=== PATIENT | female | born 1980 | race Caucasian/White ===

== ENCOUNTER 2017-11-26 13:15 | Observation (INO) | payer OTHER, SELFPAY ==
[2017-11-26 13:49] LABS: #Eosinphils 0.1 thou/uL (0.0-0.7); #Monocytes 0.9 thou/uL (0.11-0.59); #Neutrophils 8.4 thou/uL (1.40-6.50); %Basophils 0.4 % (0.0-1.0); %Eosinophils 0.8 % (0.0-10.0); %Lymphocytes 17.3 % (21.0-51.0); %Neutrophils 73.5 % (42.0-75.0); Hemoglobin 14.3 g/dL (12.0-16.0); Mean Corpuscular HGB CONC 34.3 g/dL (32.0-36.0); Mean Corpuscular Hemoglobin 35.5 pg (27.0-31.0); Mean Platelet Volume 8.4 fL (7.4-10.4); Platelet Count 152 thou/uL (130-400); RBC Distribution Width 11.2 % (11.5-14.5); Red Blood Cell (RBC) Count 4.02 mill/uL (4.20-5.40); White Blood Cell (WBC) Count 11.3 thou/uL (4.8-10.8)
[2017-11-26] MEDS ORDERED: Ondansetron HCl/PF 4 MG/2 ML Vial ONE (13:55)
[2017-11-26] MEDS ORDERED: Morphine 2 MG/ML SYRINGE ONE (13:56)
[2017-11-26 13:59] LABS: Bilirubin Negative (Negative); Blood, Urine Negative (Negative); Clarity CLEAR (Clear); Glucose, Urine (Dipstick) Negative (Negative); Leukocyte Negative (Negative); Nitrite Positive (Negative); Protein, Urine (Dipstick) Negative (Neg-Trace); Specific Gravity, Urine 1.019 (1.002-1.036); pH, Urine 8.5 (5.0-9.0)
[2017-11-26 14:00] LABS: Pregnancy Test - Urine (BHCG) Negative (Negative); Pregu Control Background? CLEAR/WHITE (CLR/WHITE); Pregu Control Bar Appear? YES (CONTROL BAR); Specific Gravity 1.019 (1.002-1.036)
[2017-11-26 14:06] LABS: Bacteria/HPF 4+ HPF (None Seen); Hyaline Casts/LPF 0-3 HYALINE CAST LPF (0-3 Hyaline); RBC/HPF 0-3 HPF (0-3); Squamous Epithelial 0-3 HPF (0-3); WBC/HPF 0-3 HPF (0-3)
[2017-11-26 14:06] LABS: ALT (SGPT) 49 U/L (8-55); AST (SGOT) 57 U/L (5-34); Albumin 4.2 g/dL (3.5-5.0); Alkaline Phosphatase 38 U/L (40-150); Anion Gap 12 mmol/L (10-20); BUN (Urea Nitrogen) 8 mg/dL (7.0-18.7); Bilirubin, Total 0.9 mg/dL (0.2-1.2); Calc. Creatinine Clearance 0 mL/min (70-130); Carbon Dioxide 26 mmol/L (22-29); Chloride 101 mmol/L (98-107); Estimated GFR-MDRD Greater than 90; Globulin 2.8 g/dL (2.4-3.5); Glucose 112 mg/dL (70-105); Lipase 117 U/L (8-78); Potassium 4.4 mmol/L (3.5-5.1); Sodium 135 mmol/L (136-145)
--- NOTE | 2017-11-26 16:27 | CT ---
CT ABDOMEN WITH CONTRAST CT PELVIS WITH CONTRAST: DATE: 11-26-17 TIME: 2:19 p.m. HISTORY: 36-year-old female with epigastric abdomen pain, nausea and emesis. COMPARISON: 09-29-15 TECHNIQUE: IV injection of iodinated contrast media: 100 ml of Isovue 370 Oral contrast media: PO Isovue FINDINGS: Previously, there was extensive fluid and edema around the entire pancreas. Currently, there is perip ancreatic fluid around the uncinate process and adjacent to a portion of the pancreatic head, and kam rounding a segment of the superior mesenteric artery. The pancreatic duct is minimally dilated. The p ancreatic volume is smaller currently than it was previously. No fat stranding or edema around the wero dy and tail of the pancreas. No pancreatic calcifications. Diffusely low hepatic attenuation represen ts fatty liver. No portal vein thrombosis. Abdominal aorta, bilateral renal parenchyma, adrenals, and spleen are normal. No signs of acute cholecystitis. Normal appendix. Nonspecific new finding of mild dilation of bilateral extrarenal pelves, right greater than left, and of the right proximal and mid ureter. Partially decompressed urinary bladder contains a punctate focus of gas in its anterior nonde pendent portion to the left of midline (has the patient recently been catheterized?). No signs of acu te colonic diverticulitis. No small bowel dilation. Lung bases are clear. No pleural effusion. IMPRESSION: 1. Acute pancreatitis, isolated to the region around the pancreatic head and uncinate process, much l ess extensive than the episode in the previous CT of 09-29-15. 2. Hepatic steatosis. 3. Mild right hydroureter of uncertain etiology. 4. Interval mild atrophy of the pancreas. SAMUEL Watkins POS: CHELSEA
--- NOTE | 2017-11-26 18:35 | HP ---
HISTORY OF PRESENT ILLNESS: Mrs. Barr is a 36-year-old woman. She came to this facilit y earlier today with complaint of abdominal pain, nausea, and vomiting which started early this morni ng. She was evaluated in the ER, she was found to have acute pancreatitis. She denies any associate d fever. She denies diarrhea. PAST MEDICAL HISTORY: Remarkable for pancreatitis. She had 2 prior episodes of acute pancreatitis. She denies any other significant past medical history. She denies hypertension, diabetes, heart dis ease, lung disease, liver disease. PAST SURGICAL HISTORY: Remarkable for tubal ligation. ALLERGIES: She claims to have allergy to DEMEROL, STADOL, PHENERGAN, PENICILLIN, and also LATEX. SOCIAL HISTORY: She does have a history of ETOH abuse and also history of cigarette smoking. FAMILY HISTORY: Reviewed and is not contributory. MEDICATIONS: Prior to admission, she was not on any medication. REVIEW OF SYSTEMS: Constitutional: Denies any fever, denies any weakness. HEENT: No headache, no ocular pain, no sore throat, no rhinorrhea, no earache, no epistaxis. Neck: No neck pain, no neck s tiffness. Cardiovascular: No shortness of breath. No chest pain. Pulmonary: No coughing. Gastrointestinal: Admits to abdominal pain, nausea, and vomiting. She den ies diarrhea. Genitourinary: No dysuria, no hematuria. Endocrinology: No heat or cold intolerance . No polyuria, polydipsia or polyphagia. Musculoskeletal: She denies otalgia. Denies myalgia. He matology: No abnormal bleeding, no ecchymosis. Lymphatics: No palpable lymphadenopathy, no painful lymphadenopathy. Skin: No rash, no itching. Allergies: No hayfever. Neurological: No seizure. Psychiatric: Denies anxiety. Denies depressio n. PHYSICAL EXAMINATION: At the current time, GENERAL: She is alert, oriented, sick looking. VITAL SIGNS: Her latest vital signs show a temperature of 98.6, pulse rate 75, respiratory rate 16, blood pressure 139/85. HEENT: Her head is normocephalic and atraumatic. Both her pupils are equal, reactive. Ears and nos e normal. Oral mucosa is moist. Pharyngeal area is clear. NECK: Supple. There is no distention of the jugular veins. No lymphadenopathy felt. Thyroid gland not palpable. There is no carotid bruit. CHEST: Symmetrical with regular S1, S2. LUNGS: Clear. ABDOMEN: Shows some tenderness in the periumbilical area extending up to the epigastric area. Bowel sounds are decreased. EXTREMITIES: Her limbs showed no edema. NEUROLOGIC: She moves all extremities. LABORATORY DATA: CBC done today showed WBC of 11.3, hemoglobin of 14.3, hematocrit of 41.6, MCV of 1 04, platelets 152. Chemistry, electrolytes show sodium of 135, potassium 4.4, chloride 101, CO2 of 2 6, BUN 8, creatinine 0.66, glucose 112, calcium 10, total bilirubin 0.9, AST 67, ALT 49, alkaline tony sphatase 38, total protein 7, albumin 4.2, globulin 2.8, lipase 117. Urinalysis shows specific gravi ty of 1.019, pH of 8.5, nitrite positive, leukocyte esterase negative, 0-2 rbc's, 0-2 wbc's, 0-2 epit helial cells, +4 bacteria, 0-2 hyaline cast. Abdomen and pelvis CT was reviewed and showed evidence of acute pancreatitis and also hepatic steatosis. There is mild right hydroureter of uncertain etiol ogy, according to the report. ASSESSMENT AND PLAN: This is a 36-year-old woman with a history of ETOH abuse, previous ep isode of acute pancreatitis who is being admitted with acute pancreatitis. She is being admitted to medical floor. She will be hydrated vigorously. We will start her on morphine for pain. She will r eceive Zofran for nausea, vomiting, then she will be on PPI and also Lovenox for DVT prophylaxis. Moose an is being admitted for acute pancreatitis. Further evaluation and management will depend on the cou rse of the hospitalization and her response to therapy.
[2017-11-26] MEDS ORDERED: Ondansetron HCl/PF 4 MG/2 ML Vial IVP PRN (18:39)
[2017-11-26] MEDS ORDERED: Zolpidem Tartrate 5 MG TAB PO PRN (18:39)
[2017-11-26 18:40] VITALS: BMI 24.2
[2017-11-26] MEDS: Sodium Chloride 0.9% 1,000 ML IV SCH (19:52)
[2017-11-26] MEDS: Nicotine 21 MG PATCH TD SCH ×2 (19:53→20:16)
[2017-11-26] MEDS: Famotidine/PF 20 mg/2ml Vial SLOW IVP SCH (19:53)
[2017-11-27] MEDS: Sodium Chloride 0.9% 1,000 ML IV SCH ×3 (03:05→22:59)
[2017-11-27 05:44] LABS: ALT (SGPT) 32 U/L (8-55); AST (SGOT) 31 U/L (5-34); Albumin 3.3 g/dL (3.5-5.0); Alkaline Phosphatase 28 U/L (40-150); Anion Gap 10 mmol/L (10-20); BUN (Urea Nitrogen) 4 mg/dL (7.0-18.7); Bilirubin, Total 0.7 mg/dL (0.2-1.2); Calc. Creatinine Clearance 127 mL/min (70-130); Calcium 8.2 mg/dL (7.8-10.44); Carbon Dioxide 26 mmol/L (22-29); Chloride 103 mmol/L (98-107); Estimated GFR-MDRD Greater than 90; Glucose 81 mg/dL (70-105); Potassium 3.5 mmol/L (3.5-5.1); Protein, Total 5.3 g/dL (6.0-8.3); Sodium 135 mmol/L (136-145)
[2017-11-27] MEDS: Enoxaparin Sodium 40 MG/0.4 ML SYRINGE SC SCH (08:22)
[2017-11-27] MEDS: Famotidine/PF 20 mg/2ml Vial SLOW IVP SCH ×2 (08:22→20:24)
--- NOTE | 2017-11-27 15:14 | PDOC.PN ---
- Subjective Encounter Start Date: 11/27/17 Encounter Start Time: 15:00 Subjective: f/u for acute pancreatitis and ? UTI. Feels a little better overall and no -: emesis. c/o back pain in flank region, no hematuria or fever currently. - Objective Resuscitation Status: Resuscitation Status FULL:Full Resuscitation MAR Reviewed: Yes Vital Signs & Weight: Vital Signs (12 hours) Temp Pulse Resp BP Pulse Ox 11/27/17 11:08 97.9 F 78 20 144/90 H 98 11/27/17 07:53 97.7 F 68 12 11/27/17 07:24 98.0 F 70 20 126/74 95 Weight Weight 132 lb 4.8 oz I&O: 11/26/17 11/27/17 11/28/17 06:59 06:59 06:59 Intake Total 1006 Balance 1006 Result Diagrams: 11/26/17 13:33 11/27/17 04:08 Additional Labs: Microbiology 11/26/17 13:48 Urine clean catch Urine Culture - Preliminary Gram Negative Riky Laboratory Tests 11/26/17 11/26/17 13:33 13:48 Lipase 117 H Urine Test Negative Radiology Reviewed by me: Yes (CT abd/pel - mild stranding around head of pancreas) Phys Exam - Physical Examination Constitutional: NAD HEENT: PERRLA, oral pharynx no lesions Neck: no JVD, supple Respiratory: no wheezing, clear to auscultation bilateral Cardiovascular: RRR + TTP in mid-epigastric region mild CVA tenderness R>L Gastrointestinal: soft, no distention, positive bowel sounds Musculoskeletal: no edema, pulses present Neurological: normal sensation, moves all 4 limbs Psychiatric: A&O x 3 Skin: normal turgor, cap refill <2 seconds Dx/Plan (1) Acute pancreatitis Code(s): K85.9 - ACUTE PANCREATITIS, UNSPECIFIED * DO NOT USE * Status: Acute Qualifiers: Pancreatitis type: alcohol induced Comment: Improved, repeat lipase in am, start clear liquids (2) UTI (urinary tract infection) Status: Acute Qualifiers: Urinary tract infection type: acute cystitis Comment: Await final Ucx results, start Rocephin 2gm IV daily (3) Nausea & vomiting Code(s): R11.2 - NAUSEA WITH VOMITING, UNSPECIFIED Status: Acute Comment: resolved, continue IVF's, supportive, Zofran prn (4) Hepatic steatosis Code(s): K76.0 - FATTY (CHANGE OF) LIVER, NOT ELSEWHERE CLASSIFIED Status: Chronic Comment: Follow clinically - Plan continue antibiotics, manager social work, out of bed/ambulate, DVT proph w/SCDs Stable overall -: Start Rocephin 2gm IV daily -: Continue IVF's -: Start clear liquids -: AM lab: CMP, Lipase * Likely home in am
[2017-11-27] MEDS ORDERED: cefTRIAXone\\ROCEPHIN 2 GM in Sodium Chloride 0.9% 100 ML IVPB SCH (16:00)
[2017-11-27] MEDS: Nicotine 21 MG PATCH TD SCH (20:32)
[2017-11-28] MEDS ORDERED: HYDROcodone/Acetaminophen 5/325 mg Tablet PO SCH (04:30)
[2017-11-28 05:29] LABS: ALT (SGPT) 27 U/L (8-55); AST (SGOT) 23 U/L (5-34); Albumin 3.3 g/dL (3.5-5.0); Alkaline Phosphatase 33 U/L (40-150); Anion Gap 12 mmol/L (10-20); BUN (Urea Nitrogen) 5 mg/dL (7.0-18.7); Bilirubin, Total 0.3 mg/dL (0.2-1.2); Calc. Creatinine Clearance 134 mL/min (70-130); Calcium 8.7 mg/dL (7.8-10.44); Carbon Dioxide 22 mmol/L (22-29); Chloride 103 mmol/L (98-107); Estimated GFR-MDRD Greater than 90; Globulin 2.5 g/dL (2.4-3.5); Glucose 89 mg/dL (70-105); Lipase 193 U/L (8-78); Potassium 3.8 mmol/L (3.5-5.1); Protein, Total 5.8 g/dL (6.0-8.3); Sodium 133 mmol/L (136-145)
[2017-11-28] MEDS: Enoxaparin Sodium 40 MG/0.4 ML SYRINGE SC SCH (08:31)
[2017-11-28] MEDS: Famotidine/PF 20 mg/2ml Vial SLOW IVP SCH (08:31)
[2017-11-28] MEDS: Sodium Chloride 0.9% 1,000 ML IV SCH (08:31)
--- NOTE | 2017-11-28 10:12 | DIS ---
DATE OF ADMISSION: 11/26/2017 DATE OF DISCHARGE: 11/28/2017 DISCHARGE DIAGNOSES: 1. Acute pancreatitis, likely alcohol induced. 2. Abdominal pain secondary to #1, improved. 3. Nausea and vomiting secondary to #1, resolved. 4. Urinary tract infection with Escherichia coli. 5. Hepatic steatosis. CONSULTATIONS: None. PERTINENT LABORATORY DATA AND X-RAY FINDINGS: Sodium ranged between 133-135. AST ranged between 23- 57, ALT ranged between 27-49, alkaline phosphatase ranged between 28-38. Albumin ranged between 3.3- 4.2. Lipase ranged between 117-193. CBC showed a white blood cell count of 11.3, hemoglobin 14, hem atocrit 42, MCV 104, platelet count 152. Urine beta hCG negative, 11/26/2017. Urine culture dated 0 11/26/2017 showed greater than 100,000 colonies of E. coli, pansensitive. CT of the abdomen and pelvi s dated 11/26/2017 showed findings consistent with acute pancreatitis at the pancreatic head and unci katy process, hepatic steatosis as well as mild right hydroureter. HOSPITAL COURSE: The patient was placed in observation status after initially presenting with increa sed abdominal pain with associated nausea, vomiting, and elevated lipase concerning for acute pancrea titis. CT imaging of the abdomen and pelvis did reveal inflammatory process at the pancreatic head a nd uncinate process, much less in presentation than previous imaging compared from 2016. The patient was placed on n.p.o. status and given IV fluid hydration as well as morphine sulfate and antiemetics . The patient has slowly clinically improved with supportive measures, advancing to clear liquids an d tolerating without return of emesis. Serial lipase assessment showed values ranging between 117-19 3 with recommendation for bland liquid diet after discharge. The patient was also recommended for GI followup and likely would benefit from ERCP evaluation after a current episode of acute pancreatitis has resolved. Overall, patient did remain clinically stable during the hospital course and ready fo r discharge on 11/28/2017. DISCHARGE MEDICATIONS: 1. Levaquin 500 mg 1 tab p.o. daily x7 days. 2. Tramadol 50 mg 1 tablet p.o. q.i.d. p.r.n. pain, #30. FOLLOWUP: The patient may follow up with Dr. Dillon Reis, primary care provider, within 7 days of discharge. The patient was also given referral for GI followup with Dr. Hercules and to call his offi ce for appointment time and date. CONDITION ON DISCHARGE: Stable. ACTIVITY: Ad kamini. DIET: Crosby and liquid. CODE STATUS: FULL. DISPOSITION: Home, 11/28/2017.
[2017-11-28 15:58] VITALS: BP 128/76; TEMP 98.7
== END 2017-11-28 16:28 | disposition home or self-care (01) ==
LOC: ERS 13:15 → 2SW 17:00
PROVIDERS: ADMIT Hospitalist; ATTEND Hospitalist
DX: K85.90 Acute pancreatitis without necrosis or infection, unspecified (principal); N39.0 Urinary tract infection, site not specified; B96.20 Unspecified Escherichia coli [E. coli] as the cause of diseases classified elsewhere; K76.0 Fatty (change of) liver, not elsewhere classified; F10.10 Alcohol abuse, uncomplicated; F17.210 Nicotine dependence, cigarettes, uncomplicated; Z79.899 Other long term (current) drug therapy; Z88.5 Allergy status to narcotic agent; Z88.0 Allergy status to penicillin; Z88.8 Allergy status to other drugs, medicaments and biological substances; Z91.040 Latex allergy status
CPT/HCPCS: 36415; 74177; 80053; 81003; 81015; 81025; 83690; 85025; 87077; 87086; 87186; 96361; 96365; 96372; 96374; 96375; 96376; 99406; G0378; J0696; J1650; J2270; J2405; J7050; S0028

== ENCOUNTER 2018-06-05 10:59 | Inpatient (IN) | payer OTHER, SELFPAY ==
[2018-06-05 12:10] LABS: Bilirubin Negative (Negative); Blood, Urine Negative (Negative); Clarity CLEAR (Clear); Glucose, Urine (Dipstick) Negative (Negative); Leukocyte Negative (Negative); Nitrite Negative (Negative); Protein, Urine (Dipstick) Negative (Neg-Trace); Specific Gravity, Urine 1.005 (1.002-1.036); Urobilinogen 0.2 mg/dL (0.2-1.0)
[2018-06-05 12:11] LABS: Pregnancy Test - Urine (BHCG) Negative (Negative); Pregu Control Background? CLEAR/WHITE (CLR/WHITE); Pregu Control Bar Appear? YES (CONTROL BAR); Specific Gravity 1.005 (1.002-1.036)
[2018-06-05 12:25] LABS: ALT (SGPT) 40 U/L (8-55); AST (SGOT) 45 U/L (5-34); Albumin 4.3 g/dL (3.5-5.0); Alkaline Phosphatase 42 U/L (40-150); Anion Gap 18 mmol/L (10-20); BUN (Urea Nitrogen) 5 mg/dL (7.0-18.7); Calc. Creatinine Clearance 0 mL/min (70-130); Calcium 9.8 mg/dL (7.8-10.44); Carbon Dioxide 21 mmol/L (22-29); Chloride 98 mmol/L (98-107); Estimated GFR-MDRD Greater than 90; Globulin 3.2 g/dL (2.4-3.5); Glucose 88 mg/dL (70-105); Lipase 324 U/L (8-78); Potassium 3.9 mmol/L (3.5-5.1); Protein, Total 7.5 g/dL (6.0-8.3); Sodium 133 mmol/L (136-145)
[2018-06-05 12:39] LABS: #Basophils 0.1 thou/uL (0.0-0.2); #Eosinphils 0.1 thou/uL (0.0-0.7); #Lymphocytes 1.6 thou/uL (1.20-3.40); #Monocytes 0.7 thou/uL (0.11-0.59); #Neutrophils 6.3 thou/uL (1.40-6.50); %Eosinophils 0.9 % (0.0-10.0); %Lymphocytes 17.7 % (21.0-51.0); %Monocytes 8.3 % (0.0-10.0); Eosinophils 1 % (0-10); Hemoglobin 14.6 g/dL (12.0-16.0); Lymphocytes 17 % (21-51); MDiff Complete? YES; Macrocytosis SLIGHT = 6-15 cells (100X) (0-5/hpf); Mean Corpuscular HGB CONC 34.2 g/dL (32.0-36.0); Mean Corpuscular Hemoglobin 36.8 pg (27.0-31.0); Mean Platelet Volume 9.2 fL (7.4-10.4); Monocytes 9 % (0-10); Neutrophil 73 % (42-75); Platelet Count 132 thou/uL (130-400); Red Blood Cell (RBC) Count 3.97 mill/uL (4.20-5.40); White Blood Cell (WBC) Count 8.7 thou/uL (4.8-10.8)
[2018-06-05] MEDS ORDERED: Ondansetron ODT 4 MG TAB ONE (14:46)
[2018-06-05] MEDS ORDERED: Morphine 4 MG/ML VIAL ONE ×2 (14:46→19:17)
[2018-06-05] MEDS ORDERED: HYDROcodone/Acetaminophen 10/325 mg Tablet ONE ×2 (15:52→17:42)
[2018-06-05] MEDS ORDERED: SODIUM CHLORIDE 0.9% IVPB PRN (21:22)
[2018-06-05] MEDS ORDERED: ONDANSETRON HCL IVPB PRN (21:22)
[2018-06-05] MEDS ORDERED: Ondansetron HCl/PF 4 MG/2 ML Vial IVP PRN (21:38)
[2018-06-05] MEDS ORDERED: Morphine 4 MG/ML VIAL SLOW IVP PRN (21:53)
[2018-06-05] MEDS: Lactated Ringer's 1,000 ML IV SCH (22:19)
[2018-06-05 22:47] VITALS: BMI 24.0
[2018-06-06 05:14] LABS: #Basophils 0.1 thou/uL (0.0-0.2); #Eosinphils 0.1 thou/uL (0.0-0.7); #Lymphocytes 1.9 thou/uL (1.20-3.40); #Monocytes 0.7 thou/uL (0.11-0.59); %Basophils 0.9 % (0.0-1.0); %Eosinophils 1.3 % (0.0-10.0); %Lymphocytes 24.8 % (21.0-51.0); %Monocytes 9.4 % (0.0-10.0); %Neutrophils 63.7 % (42.0-75.0); Hemoglobin 12.4 g/dL (12.0-16.0); Mean Corpuscular HGB CONC 33.9 g/dL (32.0-36.0); Mean Corpuscular Hemoglobin 36.8 pg (27.0-31.0); Mean Platelet Volume 9.1 fL (7.4-10.4); Platelet Count 111 thou/uL (130-400); RBC Distribution Width 13.1 % (11.5-14.5); Red Blood Cell (RBC) Count 3.39 mill/uL (4.20-5.40); White Blood Cell (WBC) Count 7.8 thou/uL (4.8-10.8)
[2018-06-06 05:15] LABS: Anion Gap 12 mmol/L (10-20); BUN (Urea Nitrogen) 4 mg/dL (7.0-18.7); Calc. Creatinine Clearance 113 mL/min (70-130); Calcium 8.7 mg/dL (7.8-10.44); Carbon Dioxide 24 mmol/L (22-29); Chloride 104 mmol/L (98-107); Estimated GFR-MDRD Greater than 90; Glucose 74 mg/dL (70-105); Potassium 3.8 mmol/L (3.5-5.1); Sodium 136 mmol/L (136-145)
[2018-06-06] MEDS: Lactated Ringer's 1,000 ML IV SCH ×3 (05:21→19:46)
--- NOTE | 2018-06-06 07:32 | HP ---
PRIMARY CARE PHYSICIAN: The patient follows with a doctor at [facility] CODE STATUS: FULL CODE. TIME OF EVALUATION: 8:40 p.m. CHIEF COMPLAINT: Abdominal pain. HISTORY OF PRESENT ILLNESS: This is a 37-year-old female patient who has a history of alcohol abuse. 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 She came to the hospital after having severe abdominal pain was 10/10. No clear triggers or alleviating factors, mostly in the epigastric area radiating to the back, associated with nausea. REVIEW OF SYSTEMS: CONSTITUTIONAL: No fever, no chills. Generalized weakness. RESPIRATORY: No cough, sputum production or shortness of breath. CARDIOVASCULAR: No chest pain or palpitations. GASTROINTESTINAL: The patient has abdominal pain, nausea, no diarrhea. No vomiting. REWINDER: No dizziness, headache or feeling lightheaded. GENITOURINARY: No burning with urination. EXTREMITIES: No leg swelling. Other systems reviewed were negative except for the findings mentioned above. PAST MEDICAL HISTORY: Positive for chronic pancreatitis, borderline diabetes in the past. PAST SURGICAL HISTORY: Tubal ligation. PSYCHIATRIC HISTORY: No previous psychiatric history. FAMILY HISTORY: Mother alcohol use SOCIAL HISTORY: The patient drinks on an almost daily basis due to her job, patient smokes a half a pack per day. The patient lives with family with her spouse. ALLERGIES: DEMEROL, LATEX, PENICILLIN, PHENERGAN, STADOL, TORADOL. REPORTED MEDICATIONS: None. PHYSICAL EXAMINATION: VITAL SIGNS: On presentation, blood pressure 169/91 with heart rate 88, respiratory rate was 18, temperature 98. Pain was 10/10, oxygen saturation was 100 on room air. GENERAL APPEARANCE: The patient is alert, oriented, not in acute distress. HEENT: Eyes; normal conjunctivae. Moist oral mucosa. Anicteric. NECK: No JVD. RESPIRATORY: Bilateral air entry. No rales, no wheezing. Symmetric expansion. CARDIOVASCULAR: Normal rate, regular rhythm. No murmurs, no gallop. No edema. The patient is hypertensive. ABDOMEN: Soft, normal bowel sounds. MUSCULOSKELETAL: Baseline range of motion and strength. No tenderness. SKIN: Warm and intact. No pallor or rash. No redness. Peripheral pulses are present. Capillary refill seems to be intact. NEUROLOGIC: Baseline sensory. No evidence of a new focal weakness. Baseline speech. Cranial nerves are intact. PSYCHIATRIC: The patient is in a good mood. No anxiety, oriented, optimal judgment. LABORATORY DATA: Labs were reviewed. The patient has white count 8.7, hemoglobin 14.6, MCV 108, platelet count 132. Sodium 133, potassium 3.9, chloride 98, carbon dioxide 21, anion gap 18, BUN 5, creatinine 0.6, AST 45. LFTs are negative. Lipase 224. ASSESSMENT AND PLAN: The patient will be placed in the hospital for the following medical problems: 1. Acute on chronic pancreatitis, with elevated lipase of 324, more than 3 times the upper limit, likely triggered by alcohol abuse, advised the patient to stop drinking, continue to give hydration, opiate medications are needed for pain control. This also places the patient at high risk of complication from treatment. 2. Hyponatremia. Sodium is 133, corrected. Repeat 130 this morning, this is mild, no need for any further intervention. 3. Mild metabolic acidosis with a CO2 of 21. This was corrected to 24 on repeat labs in the morning. 4. Deep venous thrombosis prophylaxis. MTDD
[2018-06-06] MEDS ORDERED: Enoxaparin Sodium 40 MG/0.4 ML SYRINGE SC SCH (09:00)
[2018-06-06] MEDS ORDERED: Famotidine/PF 20 mg/2ml Vial SLOW IVP SCH ×2 (09:37→09:45)
[2018-06-06] MEDS: Famotidine/PF 20 mg/2ml Vial SLOW IVP SCH (20:30)
[2018-06-07] MEDS: HYDROcodone/Acetaminophen 5/325 mg Tablet PO PRN ×4 (02:36→21:11)
[2018-06-07] MEDS: Lactated Ringer's 1,000 ML IV SCH ×3 (03:13→17:55)
[2018-06-07] MEDS: Famotidine/PF 20 mg/2ml Vial SLOW IVP SCH ×2 (08:39→20:03)
--- NOTE | 2018-06-07 10:48 | ULT ---
GALLBLADDER ULTRASOUND: HISTORY: Abdominal pain. COMPARISON: 09/03/2015 TECHNIQUE: Utilizing a Multi-Hertz transducer, sonographic imaging of the right upper quadrant was performed in the longitudinal and transverse planes. FINDINGS: The pancreas is obscured by bowel gas. The hepatic parenchyma has an increased echogenicity, due to hepatic steatosis or hepatocellular dise ase. Subsequent evaluation for hepatic masses and intrahepatic biliary dilatation is limited. The r ight hepatic lobe measures 13.7 cm. Note is made of a prominent right extrarenal pelvis. No evidence of calyceal dilatation. The right kidney measures 11.2 cm in maximum dimension. No sonographic evidence of cholelithiasis, gallbladder wall thickening, or pericholecystic fluid. Ne gative Carrera sign. Common bile duct diameter is 0.4 cm. IMPRESSION: No sonographic evidence of cholelithiasis or cholecystitis. POS: CHELSEA
--- NOTE | 2018-06-07 13:28 | PDOC.PN ---
- Subjective Encounter Start Date: 06/07/18 Encounter Start Time: 11:30 Subjective: pt up in bed still has pain to her abdomen area -: she tried to eat last night and started to have pain - Objective Resuscitation Status: Resuscitation Status FULL:Full Resuscitation Vital Signs & Weight: Vital Signs (12 hours) Temp Pulse Resp BP BP Pulse Ox 06/07/18 11:32 98.1 F 77 16 145/85 H 100 06/07/18 07:52 97.4 F L 80 16 143/93 H 99 06/07/18 02:37 97.5 F L 86 16 166/88 H 100 Weight Weight 128 lb 11.2 oz I&O: 06/06/18 06/07/18 06/08/18 06:59 06:59 06:59 Intake Total 1031 4317 Balance 1031 4317 Result Diagrams: 06/06/18 04:31 06/06/18 04:31 Phys Exam - Physical Examination Neck: no nodes, no JVD, supple, full ROM Respiratory: no wheezing, no rales, no rhonchi, wheezing present, clear to auscultation bilateral Cardiovascular: RRR, no significant murmur, no rub, gallop, irregular Gastrointestinal: soft, positive bowel sounds mild tenderness around epigastric area Neurological: non-focal, normal sensation, moves all 4 limbs Psychiatric: normal affect, A&O x 3 Dx/Plan (1) Acute pancreatitis Code(s): K85.9 - ACUTE PANCREATITIS, UNSPECIFIED * DO NOT USE * Status: Acute Comment: Improved, repeat lipase in am, start clear liquids (2) Nausea & vomiting Code(s): R11.2 - NAUSEA WITH VOMITING, UNSPECIFIED Status: Acute Comment: resolved, continue IVF's, supportive, Zofran prn (3) Alcohol abuse Code(s): F10.10 - ALCOHOL ABUSE, UNCOMPLICATED Status: Chronic (4) Nausea & vomiting Code(s): R11.2 - NAUSEA WITH VOMITING, UNSPECIFIED Status: Acute - Plan pt still has pain to her abdomen -: will continue pepcid bid -: may progress diet if tolerates * . Review of Systems - Review of Systems Respiratory: negative: Cough, Dry, Shortness of Breath, Hemoptysis, SOB with Excertion, Pleuritic Pain, Sputum, Wheezing Cardiovascular: negative: chest pain, palpitations, orthopnea, paroxysmal nocturnal dyspnea, edema, light headedness, other Gastrointestinal: Abdominal Pain Genitourinary: negative: Dysuria, Frequency, Incontinence, Hematuria, Retention , Other Musculoskeletal: negative: Neck Pain, Shoulder Pain, Arm Pain, Back Pain, Hand Pain, Leg Pain, Foot Pain, Other - Medications/Allergies Allergies/Adverse Reactions: Allergies Allergy/AdvReac Type Severity Reaction Status Date / Time butorphanol tartrate Allergy Rash Verified 06/05/18 22:38 [From Stadol] ketorolac tromethamine Allergy Rash Verified 06/05/18 22:38 [From Toradol] latex Allergy Rash Verified 06/05/18 22:38 meperidine HCl [From Demerol] Allergy Rash Verified 06/05/18 22:38 Penicillins Allergy Rash Verified 06/05/18 22:38 promethazine HCl Allergy Rash Verified 06/05/18 22:38 [From Phenergan] Medications: Current Medications Hydrocodone Bitart/Acetaminophen (Rossiter 5/325) 1 tab PO Q6H PRN PRN Reason: Mild-Moderate Pain (1-5) Last Admin: 06/07/18 08:37 Dose: 1 tab Famotidine (Pepcid) 20 mg SLOW IVP BID [facility] Last Admin: 06/07/18 08:39 Dose: 20 mg Lactated Ringer's (Lactated Ringer's) 1,000 mls @ 150 mls/hr IV .Q6H40M [facility] Last Admin: 06/07/18 08:37 Dose: 1,000 mls Morphine Sulfate (Morphine) 2 mg SLOW IVP Q2H PRN PRN Reason: Moderate to Severe Pain (6-10) Last Admin: 06/07/18 11:11 Dose: 2 mg Ondansetron HCl (Zofran) 2 mg IVP Q4H PRN PRN Reason: SEVERE PAIN (7-10) Last Admin: 06/06/18 20:27 Dose: 2 mg Sodium Chloride (Flush - Normal Saline) 10 ml IVF Q12HR [facility] Last Admin: 06/07/18 08:40 Dose: Not Given Sodium Chloride (Flush - Normal Saline) 10 ml IVF PRN PRN PRN Reason: Saline Flush
[2018-06-08] MEDS: Lactated Ringer's 1,000 ML IV SCH ×4 (00:21→16:59)
[2018-06-08] MEDS: HYDROcodone/Acetaminophen 5/325 mg Tablet PO PRN ×3 (03:11→18:11)
[2018-06-08 04:32] LABS: ALT (SGPT) 24 U/L (8-55); AST (SGOT) 18 U/L (5-34); Albumin 3.4 g/dL (3.5-5.0); Alkaline Phosphatase 35 U/L (40-150); Anion Gap 14 mmol/L (10-20); BUN (Urea Nitrogen) Less than 4 mg/dL (7.0-18.7); Bilirubin, Total 0.6 mg/dL (0.2-1.2); Calc. Creatinine Clearance 131 mL/min (70-130); Calcium 9.4 mg/dL (7.8-10.44); Carbon Dioxide 21 mmol/L (22-29); Chloride 101 mmol/L (98-107); Estimated GFR-MDRD Greater than 90; Globulin 2.6 g/dL (2.4-3.5); Glucose 104 mg/dL (70-105); Potassium 3.7 mmol/L (3.5-5.1); Sodium 132 mmol/L (136-145)
[2018-06-08 04:48] LABS: #Eosinphils 0.1 thou/uL (0.0-0.7); #Lymphocytes 1.5 thou/uL (1.20-3.40); #Neutrophils 5.7 thou/uL (1.40-6.50); %Basophils 0.6 % (0.0-1.0); %Eosinophils 1.1 % (0.0-10.0); %Lymphocytes 18.5 % (21.0-51.0); %Monocytes 11.4 % (0.0-10.0); %Neutrophils 68.3 % (42.0-75.0); Hemoglobin 12.2 g/dL (12.0-16.0); Mean Corpuscular HGB CONC 34.6 g/dL (32.0-36.0); Mean Corpuscular Hemoglobin 36.9 pg (27.0-31.0); Mean Platelet Volume 9.1 fL (7.4-10.4); Platelet Count 116 thou/uL (130-400); RBC Distribution Width 12.7 % (11.5-14.5); White Blood Cell (WBC) Count 8.3 thou/uL (4.8-10.8)
[2018-06-08] MEDS: Famotidine/PF 20 mg/2ml Vial SLOW IVP SCH (08:15)
--- NOTE | 2018-06-08 13:50 | PDOC.PN ---
- Subjective Encounter Start Date: 06/08/18 Encounter Start Time: 10:30 Subjective: pt up in bed still having abdominal pain - Objective Resuscitation Status: Resuscitation Status FULL:Full Resuscitation Vital Signs & Weight: Vital Signs (12 hours) Temp Pulse Resp BP Pulse Ox 06/08/18 08:00 99 06/08/18 07:26 97.7 F 72 18 158/89 H 99 06/08/18 04:00 98.0 F 74 20 144/94 H 96 Weight Weight 128 lb 11.2 oz I&O: 06/07/18 06/08/18 06/09/18 06:59 06:59 06:59 Intake Total 4317 2562 Balance 4317 2562 Result Diagrams: 06/08/18 03:36 06/08/18 03:36 Phys Exam - Physical Examination Neck: no nodes, no JVD, supple, full ROM Respiratory: no wheezing, no rales, no rhonchi, wheezing present, clear to auscultation bilateral Cardiovascular: RRR, no significant murmur, no rub, gallop, irregular Gastrointestinal: soft, positive bowel sounds mild epigastric pain Musculoskeletal: no edema, pulses present, edema present Dx/Plan (1) Acute pancreatitis Code(s): K85.9 - ACUTE PANCREATITIS, UNSPECIFIED * DO NOT USE * Status: Acute Comment: Improved, repeat lipase in am, start clear liquids (2) Nausea & vomiting Code(s): R11.2 - NAUSEA WITH VOMITING, UNSPECIFIED Status: Acute Comment: resolved, continue IVF's, supportive, Zofran prn (3) Alcohol abuse Code(s): F10.10 - ALCOHOL ABUSE, UNCOMPLICATED Status: Chronic (4) Nausea & vomiting Code(s): R11.2 - NAUSEA WITH VOMITING, UNSPECIFIED Status: Acute - Plan pt still has abdominal pain. she started to have pain when she had jello -: she wanted me to increase the frequency of her pain meds -: her inflammatory markers are negative. will get GI to see her. * . Review of Systems - Review of Systems ENT: negative: Ear Pain, Ear Discharge, Nose Pain, Nose Discharge, Nose Congestion, Mouth Pain, Mouth Swelling, Throat Pain, Throat Swelling, Other Respiratory: negative: Cough, Dry, Shortness of Breath, Hemoptysis, SOB with Excertion, Pleuritic Pain, Sputum, Wheezing Gastrointestinal: Abdominal Pain Genitourinary: negative: Dysuria, Frequency, Incontinence, Hematuria, Retention , Other Musculoskeletal: negative: Neck Pain, Shoulder Pain, Arm Pain, Back Pain, Hand Pain, Leg Pain, Foot Pain, Other - Medications/Allergies Allergies/Adverse Reactions: Allergies Allergy/AdvReac Type Severity Reaction Status Date / Time butorphanol tartrate Allergy Rash Verified 06/05/18 22:38 [From Stadol] ketorolac tromethamine Allergy Rash Verified 06/05/18 22:38 [From Toradol] latex Allergy Rash Verified 06/05/18 22:38 meperidine HCl [From Demerol] Allergy Rash Verified 06/05/18 22:38 Penicillins Allergy Rash Verified 06/05/18 22:38 promethazine HCl Allergy Rash Verified 06/05/18 22:38 [From Phenergan] Medications: Current Medications Hydrocodone Bitart/Acetaminophen (Chandler 5/325) 1 tab PO Q6H PRN PRN Reason: Mild-Moderate Pain (1-5) Last Admin: 06/08/18 09:26 Dose: 1 tab Famotidine (Pepcid) 20 mg SLOW IVP BID [facility] Last Admin: 06/08/18 08:15 Dose: 20 mg Lactated Ringer's (Lactated Ringer's) 1,000 mls @ 150 mls/hr IV .Q6H40M [facility] Last Admin: 06/08/18 08:17 Dose: 1,000 mls Morphine Sulfate (Morphine) 2 mg SLOW IVP Q2H PRN PRN Reason: Moderate to Severe Pain (6-10) Last Admin: 06/08/18 13:07 Dose: 2 mg Ondansetron HCl (Zofran) 2 mg IVP Q4H PRN PRN Reason: SEVERE PAIN (7-10) Last Admin: 06/06/18 20:27 Dose: 2 mg Sodium Chloride (Flush - Normal Saline) 10 ml IVF Q12HR [facility] Last Admin: 06/08/18 09:28 Dose: 10 ml Sodium Chloride (Flush - Normal Saline) 10 ml IVF PRN PRN PRN Reason: Saline Flush Last Admin: 06/07/18 22:20 Dose: 10 ml
--- NOTE | 2018-06-08 18:36 | CON ---
DATE OF CONSULTATION: 06/08/2018 GI INPATIENT CONSULTATION NOTE REQUESTING PHYSICIAN: Nathalie Gonzalez MD REASON FOR CONSULTATION: Pancreatitis and abdominal pain. HISTORY OF PRESENT ILLNESS: Tania Barr is a 37-year-old woman. 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 She also has a history of chronic alcohol use, telling me she drinks probably 4-5 shots of liquor most nights. 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 In addition to this, jose an does have a history of recurrent episodes of acute pancreatitis. She had an episode in 09/[address] scan. She reports being hospitalized elsewhere in 2017. She was hospitalized here again in 11/[address] scan showing acute pancreatitis around the head and uncinate proces s of the pancreas, and now this admission. She says that she started having epigastric pain and naus ea over the past 5 days, significantly worsening 2 days ago and prompting her presentation. This is a similar pain to her previous presentations in the epigastric area, but also seeming to radiate stra ight through to the back. Palpation anywhere in the abdomen will make the pain worse. There has bee n some nausea. She has had only one episode of emesis since she was hospitalized here over the past couple of days. She has remained afebrile and hemodynamically stable over the past couple of days. She attempted to advance her diet yesterday, but this made the pain worse. Today, she felt she was n ot getting anywhere with the pain and was actually requesting more pain medications. She reports michele t overall she does not really have any symptoms in between attacks except for the past few months. S he will occasionally have stuttering epigastric pain, maybe twice a week. She takes no medications o n an outpatient basis. Her gallbladder is intact, but all gallbladder imaging has always been normal . REVIEW OF SYSTEMS: Full review of systems including constitutional, head, eyes, ears, nose, throat, GI, , cardiovascular, respiratory, musculoskeletal, and neurologic systems is negative except as no pranav in HPI. PAST MEDICAL HISTORY: 1. Alcohol abuse, recurrent acute pancreatitis, secondary to alcohol. 2. Borderline diabetes. 3. Tubal ligation. ALLERGIES: DEMEROL, LATEX, PENICILLIN, PHENERGAN, STADOL, TORADOL. OUTPATIENT MEDICATIONS: None. INPATIENT MEDICATIONS: [place] p.r.n., morphine IV p.r.n., Zofran IV p.r.n., Pepcid 20 mg IV b.i.d., s witched to IV Protonix today. SOCIAL HISTORY: She does smoke about half pack of cigarettes per day. She does drink alcohol most d ays, will have 4-5 shots of liquor before bedtime. FAMILY HISTORY: Negative for pancreatic disease per the patient. PHYSICAL EXAMINATION: VITAL SIGNS: Temperature 97.7, pulse 72, blood pressure 158/89, 99% oxygen saturation on room air. GENERAL: No acute distress. SKIN: No jaundice, no rash visible or palpable. EYES: No scleral icterus. Extraocular movements intact. ENT: Mucous membranes moist, no oral lesions. LYMPH: No submandibular or supraclavicular lymphadenopathy. THYROID: Nontender to palpation. HEART: Regular rate and rhythm. LUNGS: Clear to auscultation bilaterally. ABDOMEN: Bowel sounds are present. Abdomen is soft, but tender to palpation diffusely throughout th e abdomen primarily in the epigastrium. No guarding or rebound tenderness. EXTREMITIES: No peripheral edema. VESSELS: Radial pulses 2+ bilaterally. NEUROLOGICAL: Cranial nerves II-XII intact bilaterally. No focal deficits. LABORATORY STUDIES: WBC 8.3, hemoglobin 12.2, platelets 116. ESR only 2, CRP less than 0.5. LFTs a ll normal with total bilirubin 0.6, alkaline phosphatase 35, AST 18, ALT 24, albumin 3.4, BUN less th an 4, creatinine 0.54. Lipase was initially 324, today stable at 314. ASSESSMENT AND PLAN: 1. Pancreatitis secondary to alcohol, acute, recurrent. 2. Epigastric pain. The patient's presentation indeed seems consistent with her prior episodes of acute pancreatitis. No tably, all of her labs are favorable including hematocrit and creatinine as well as normal ESR and CR P. She has not had abdominal CT imaging this admission, but I do think it would really change manage ment, and I have low suspicion for any complications such as abscess or fluid collection given the ab sence of leukocytosis. This does not appear to represent biliary etiology with normal common bile du ct and normal LFTs. That being said, at this point given the normal inflammatory markers, but persistence of her pain, it would be reasonable to try to rule out upper GI mucosal pathology such as peptic ulcer disease which might be contributing to her symptoms. We will plan for diagnostic EGD tomorrow morning. Otherwise , continue supportive care for pancreatitis as you are doing. Reviewed with the patient that support nico care includes IV fluids, pain and nausea control, and only slowly dietary advancement as tolerate d. Thank you for the consultation. Please call any time with questions or concerns.
[2018-06-08] MEDS: Pantoprazole 40 MG VIAL IVP SCH (20:31)
[2018-06-09] MEDS: HYDROcodone/Acetaminophen 5/325 mg Tablet PO PRN ×3 (00:12→21:59)
[2018-06-09] MEDS: Lactated Ringer's 1,000 ML IV SCH ×4 (04:07→19:35)
[2018-06-09] MEDS: Pantoprazole 40 MG VIAL IVP SCH ×2 (07:58→20:14)
[2018-06-09] MEDS ORDERED: Midazolam HCl 2 mg/2 ml Vial ONE (09:28)
[2018-06-09] MEDS ORDERED: Ondansetron HCl/PF 4 MG/2 ML Vial IVP PRN (09:38)
--- NOTE | 2018-06-09 12:23 | OP ---
DATE OF PROCEDURE: 06/09/2018 GI ENDOSCOPY NOTE SURGEON: Yohannes Carlson M.D. APPLIED EXERCISE PHYSIOLOGIST SURGEON: None. PROCEDURE: Esophagogastroduodenoscopy with biopsies. INDICATION: Epigastric pain. MEDICATIONS: See anesthesia record. FINDINGS: After discussion of the risks, benefits and alternatives of the procedure, informed consen t was obtained and witnessed. Pre-endoscopic cardiopulmonary examination was satisfactory. Timeout was performed before sedation was achieved. Sedation was achieved with anesthesia assistance in the endoscopy unit. A Pentax adult upper endoscope was placed into the oropharynx and passed through the cricopharyngeus under direct visualization. The esophageal mucosa appeared normal throughout with a normal appearing Z-line located at 35 cm from the incisors. There was no evidence of any esophageal varices. The endoscope was advanced into the stomach. Forward and retroflexed views of the entire gastric mucosa were obtained. There is some mild patchy gastritis in the gastric fundus and in the p repyloric area, characterized by erythema, but no erosions. I did obtain biopsies from the gastric a ntrum, body and fundus to rule out H. pylori infection. The endoscope was passed through the pylorus and into the first and second portions of the duodenum. There is also some patchy erythema in the d uodenal bulb again with no erosions. The upper endoscopy was otherwise normal. The endoscope was co mpletely withdrawn and the patient allowed to recover. The patient tolerated the procedure well. Th ere were no immediate post-procedure complications. IMPRESSION: 1. Mild patchy nonerosive gastritis, biopsied to rule out Helicobacter pylori. 2. Mild duodenitis, nonerosive, in the duodenal bulb. 3. Otherwise, normal esophagogastroduodenoscopy. RECOMMENDATIONS: 1. Continue PPI. 2. Follow up pathology on the gastric biopsies. 3. Complete alcohol and tobacco cessation. 4. Continue supportive care for pancreatitis. Hopefully, we will be able to advance diet in the nex t day or two if pain requirements are decreasing. I do suspect that her pain is primarily due to downing creatitis and not this mild gastritis.
--- NOTE | 2018-06-09 14:29 | PDOC.PN ---
- Subjective Encounter Start Date: 06/09/18 Encounter Start Time: 14:28 Pt seen for followup re: alcoholic pancreatitis. Reports abdo pain still +. nausea+. - Objective Resuscitation Status: Resuscitation Status FULL:Full Resuscitation MAR Reviewed: Yes Vital Signs & Weight: Vital Signs (12 hours) Temp Pulse Resp BP BP Pulse Ox 06/09/18 10:10 97.7 F 87 14 160/89 H 96 06/09/18 08:00 99 06/09/18 07:22 98.3 F 79 16 150/99 H 99 06/09/18 03:15 162/93 H Weight Weight 128 lb 11.2 oz I&O: 06/08/18 06/09/18 06/10/18 06:59 06:59 06:59 Intake Total 2562 0 Balance 2562 2049 Result Diagrams: 06/08/18 03:36 06/08/18 03:36 Additional Labs: Labs reviewed by me Phys Exam - Physical Examination Constitutional: NAD HEENT: moist MMs, sclera anicteric, oral pharynx no lesions, 2+ tonsils Neck: no nodes, no JVD, supple, full ROM Respiratory: no wheezing, no rales, no rhonchi, clear to auscultation bilateral Cardiovascular: RRR, no rub S1, S2 Gastrointestinal: soft, no distention, positive bowel sounds Epigastric tenderness, no guarding or rigidity Neurological: moves all 4 limbs Psychiatric: A&O x 3 Deviation from normal: in mild distress Dx/Plan (1) Acute alcoholic pancreatitis Code(s): K85.20 - ALCOHOL INDUCED ACUTE PANCREATITIS WITHOUT NECROSIS OR INFCT Status: Acute Comment: supportive management (2) Gastritis Code(s): K29.70 - GASTRITIS, UNSPECIFIED, WITHOUT BLEEDING Status: Acute Comment: s/p EGD, continue PPI (3) Hyponatremia Code(s): E87.1 - HYPO-OSMOLALITY AND HYPONATREMIA Status: Acute Comment: mild, likely asymptomatic (4) Alcohol abuse Code(s): F10.10 - ALCOHOL ABUSE, UNCOMPLICATED Status: Chronic Comment: start ASE protocol - Plan * . Review of Systems - Review of Systems Constitutional: negative: fever, chills, sweats, weakness, malaise Respiratory: negative: Cough, Shortness of Breath, SOB with Excertion, Pleuritic Pain, Wheezing Cardiovascular: negative: chest pain, palpitations, orthopnea, paroxysmal nocturnal dyspnea, edema, light headedness Gastrointestinal: Nausea, Abdominal Pain. negative: Vomiting, Diarrhea, Constipation, Melena, Hematochezia Genitourinary: negative: Dysuria, Frequency, Incontinence, Hematuria, Retention Skin: negative: Rash, Lesions, Andrew, Bruising - Medications/Allergies Allergies/Adverse Reactions: Allergies Allergy/AdvReac Type Severity Reaction Status Date / Time butorphanol tartrate Allergy Rash Verified 06/05/18 22:38 [From Stadol] ketorolac tromethamine Allergy Rash Verified 06/05/18 22:38 [From Toradol] latex Allergy Rash Verified 06/05/18 22:38 meperidine HCl [From Demerol] Allergy Rash Verified 06/05/18 22:38 Penicillins Allergy Rash Verified 06/05/18 22:38 promethazine HCl Allergy Rash Verified 06/05/18 22:38 [From Phenergan] Medications: Current Medications Hydrocodone Bitart/Acetaminophen ([place] 5/325) 1 tab PO Q6H PRN PRN Reason: Mild-Moderate Pain (1-5) Last Admin: 06/09/18 13:52 Dose: 1 tab Lactated Ringer's (Lactated Ringer's) 1,000 mls @ 150 mls/hr IV .Q6H40M [facility] Last Admin: 06/09/18 11:34 Dose: 1,000 mls Morphine Sulfate (Morphine) 2 mg SLOW IVP Q2H PRN PRN Reason: Moderate to Severe Pain (6-10) Last Admin: 06/09/18 12:55 Dose: 2 mg Ondansetron HCl (Zofran) 2 mg IVP Q4H PRN PRN Reason: SEVERE PAIN (7-10) Last Admin: 06/06/18 20:27 Dose: 2 mg Pantoprazole Sodium (Protonix) 40 mg IVP Q12HR [facility] Last Admin: 06/09/18 07:58 Dose: 40 mg Sodium Chloride (Flush - Normal Saline) 10 ml IVF Q12HR [facility] Last Admin: 06/09/18 07:58 Dose: 10 ml Sodium Chloride (Flush - Normal Saline) 10 ml IVF PRN PRN PRN Reason: Saline Flush Last Admin: 06/07/18 22:20 Dose: 10 ml
[2018-06-09] MEDS ORDERED: Lidocaine 1% PF 5 ML VIAL ONE (14:51)
[2018-06-09] MEDS ORDERED: PROPOFOL 200 MG/20 ML VIAL ONE (14:51)
[2018-06-10] MEDS: Lactated Ringer's 1,000 ML IV SCH ×4 (02:46→19:30)
[2018-06-10] MEDS: HYDROcodone/Acetaminophen 5/325 mg Tablet PO PRN ×2 (05:34→20:36)
[2018-06-10] MEDS: Pantoprazole 40 MG VIAL IVP SCH ×2 (07:38→20:36)
[2018-06-10 08:36] LABS: #Basophils 0.1 thou/uL (0.0-0.2); #Eosinphils 0.1 thou/uL (0.0-0.7); #Lymphocytes 1.3 thou/uL (1.20-3.40); #Monocytes 0.8 thou/uL (0.11-0.59); #Neutrophils 3.8 thou/uL (1.40-6.50); %Eosinophils 1.7 % (0.0-10.0); %Lymphocytes 21.6 % (21.0-51.0); %Monocytes 13.7 % (0.0-10.0); %Neutrophils 62.1 % (42.0-75.0); Hemoglobin 12.5 g/dL (12.0-16.0); Mean Corpuscular HGB CONC 34.4 g/dL (32.0-36.0); Mean Corpuscular Hemoglobin 36.6 pg (27.0-31.0); Mean Platelet Volume 8.6 fL (7.4-10.4); Platelet Count 176 thou/uL (130-400); RBC Distribution Width 12.6 % (11.5-14.5); Red Blood Cell (RBC) Count 3.42 mill/uL (4.20-5.40); White Blood Cell (WBC) Count 6.1 thou/uL (4.8-10.8)
[2018-06-10 08:56] LABS: Anion Gap 16 mmol/L (10-20); BUN (Urea Nitrogen) Less than 4 mg/dL (7.0-18.7); Calc. Creatinine Clearance 127 mL/min (70-130); Calcium 9.3 mg/dL (7.8-10.44); Carbon Dioxide 25 mmol/L (22-29); Chloride 99 mmol/L (98-107); Estimated GFR-MDRD Greater than 90; Glucose 87 mg/dL (70-105); Lipase 95 U/L (8-78); Potassium 3.4 mmol/L (3.5-5.1); Sodium 137 mmol/L (136-145)
[2018-06-10] MEDS ORDERED: Potassium Chloride 20 MEQ TAB PO SCH (09:45)
--- NOTE | 2018-06-10 16:57 | PDOC.PN ---
- Subjective Encounter Start Date: 06/10/18 Encounter Start Time: 09:20 Pt seen for followup re: alcohol induced acute pancreatitis. Feels slightly better. Abdo pain better, nausea better. - Objective Resuscitation Status: Resuscitation Status FULL:Full Resuscitation MAR Reviewed: Yes Vital Signs & Weight: Vital Signs (12 hours) Temp Pulse Resp BP BP Pulse Ox 06/10/18 13:00 145/99 H 06/10/18 11:46 98.3 F 82 16 145/99 H 99 06/10/18 09:00 146/92 H 06/10/18 08:10 100 06/10/18 08:00 98.2 F 78 18 100 06/10/18 07:47 146/92 H 06/10/18 06:35 129/105 H Weight Weight 128 lb 11.2 oz I&O: 06/09/18 06/10/18 06/11/18 06:59 06:59 06:59 Intake Total 2049 4112 Balance 2049 4112 Result Diagrams: 06/10/18 08:04 06/10/18 08:04 Additional Labs: Labs reviewed by me Phys Exam - Physical Examination Constitutional: NAD HEENT: moist MMs, sclera anicteric, oral pharynx no lesions, 2+ tonsils Neck: no nodes, no JVD, supple, full ROM Respiratory: no wheezing, no rales, no rhonchi, clear to auscultation bilateral Cardiovascular: RRR, no rub S1, S2 Gastrointestinal: soft, no distention, positive bowel sounds Mild epigastric tenderness Neurological: moves all 4 limbs Psychiatric: normal affect, A&O x 3 Dx/Plan (1) Acute alcoholic pancreatitis Code(s): K85.20 - ALCOHOL INDUCED ACUTE PANCREATITIS WITHOUT NECROSIS OR INFCT Status: Acute Comment: Improving, lipase better, continue supportive management (2) Gastritis Code(s): K29.70 - GASTRITIS, UNSPECIFIED, WITHOUT BLEEDING Status: Acute Comment: continue PPI for gastritis seen on EGD (3) Alcohol abuse Code(s): F10.10 - ALCOHOL ABUSE, UNCOMPLICATED Status: Chronic Comment: continue ASE protocol (4) Hyponatremia Code(s): E87.1 - HYPO-OSMOLALITY AND HYPONATREMIA Status: Resolved - Plan out of bed/ambulate * . Review of Systems - Review of Systems Constitutional: negative: fever, chills, sweats, weakness, malaise Respiratory: negative: Cough, Shortness of Breath, SOB with Excertion, Pleuritic Pain, Wheezing Cardiovascular: negative: chest pain, palpitations, orthopnea, paroxysmal nocturnal dyspnea, edema, light headedness Gastrointestinal: Nausea, Abdominal Pain. negative: Vomiting, Diarrhea, Constipation, Melena, Hematochezia Genitourinary: negative: Dysuria, Frequency, Incontinence, Hematuria, Retention Skin: negative: Rash, Lesions, Andrew, Bruising - Medications/Allergies Allergies/Adverse Reactions: Allergies Allergy/AdvReac Type Severity Reaction Status Date / Time butorphanol tartrate Allergy Rash Verified 06/05/18 22:38 [From Stadol] ketorolac tromethamine Allergy Rash Verified 06/05/18 22:38 [From Toradol] latex Allergy Rash Verified 06/05/18 22:38 meperidine HCl [From Demerol] Allergy Rash Verified 06/05/18 22:38 Penicillins Allergy Rash Verified 06/05/18 22:38 promethazine HCl Allergy Rash Verified 06/05/18 22:38 [From Phenergan] Medications: Current Medications Hydrocodone Bitart/Acetaminophen ([place] 5/325) 1 tab PO Q6H PRN PRN Reason: Mild-Moderate Pain (1-5) Last Admin: 06/10/18 05:34 Dose: 1 tab Lactated Ringer's (Lactated Ringer's) 1,000 mls @ 150 mls/hr IV .Q6H40M [facility] Last Admin: 06/10/18 09:05 Dose: 1,000 mls Morphine Sulfate (Morphine) 2 mg SLOW IVP Q2H PRN PRN Reason: Moderate to Severe Pain (6-10) Last Admin: 06/10/18 14:47 Dose: 2 mg Ondansetron HCl (Zofran) 2 mg IVP Q4H PRN PRN Reason: SEVERE PAIN (7-10) Last Admin: 06/06/18 20:27 Dose: 2 mg Pantoprazole Sodium (Protonix) 40 mg IVP Q12HR [facility] Last Admin: 06/10/18 07:38 Dose: 40 mg Sodium Chloride (Flush - Normal Saline) 10 ml IVF Q12HR [facility] Last Admin: 06/10/18 07:41 Dose: 10 ml Sodium Chloride (Flush - Normal Saline) 10 ml IVF PRN PRN PRN Reason: Saline Flush Last Admin: 06/07/18 22:20 Dose: 10 ml
--- NOTE | 2018-06-10 17:19 | PRG ---
DATE OF SERVICE: 06/10/2018 GI INPATIENT DAILY PROGRESS NOTE SUBJECTIVE: Nataliia says she is feeling about the same today. She has been asking for morphine about every 4 hours on average over the past day. This does help the pain temporarily, but then it always comes back. She remains nauseated, but has not had any vomiting. She has had only one small portion of jello today. She has been otherwise stable. No other complaints. OBJECTIVE: VITAL SIGNS: Temperature 98.3, pulse 82, blood pressure 145/99, 99% oxygen saturation on room air. GENERAL: No acute distress. HEART: Regular rate and rhythm. LUNGS: Clear to auscultation bilaterally. ABDOMEN: Nondistended. Bowel sounds are hypoactive but present. The abdomen is soft, some diffuse tenderness to palpation. EXTREMITIES: No peripheral edema. LABORATORY STUDIES: Lipase is down to 95, BUN less than 4, creatinine 0.56, sodium 137, potassium 3. 4. WBC 6.1, hemoglobin 12.5, platelets 176. ASSESSMENT AND PLAN: 1. Acute recurrent pancreatitis secondary to alcohol abuse. 2. Epigastric pain, secondary to pancreatitis. 3. Mild gastritis. I again discussed with the patient that all of her laboratory markers are favorable, lipase is coming down. Unfortunately, her pain requirements remain significant and she does not really have much maurisio etite yet. Continue with supportive care at this time. Hopefully, she will be able to advance her d iet within the next day or two as pain requirements decrease.
[2018-06-11] MEDS: Lactated Ringer's 1,000 ML IV SCH ×4 (01:07→23:35)
[2018-06-11 05:08] LABS: #Eosinphils 0.1 thou/uL (0.0-0.7); #Lymphocytes 1.9 thou/uL (1.20-3.40); #Monocytes 0.8 thou/uL (0.11-0.59); %Basophils 0.8 % (0.0-1.0); %Eosinophils 1.9 % (0.0-10.0); %Lymphocytes 31.9 % (21.0-51.0); %Monocytes 13.5 % (0.0-10.0); %Neutrophils 51.8 % (42.0-75.0); Mean Corpuscular HGB CONC 33.8 g/dL (32.0-36.0); Mean Corpuscular Hemoglobin 36.1 pg (27.0-31.0); Mean Platelet Volume 8.4 fL (7.4-10.4); Platelet Count 195 thou/uL (130-400); RBC Distribution Width 12.6 % (11.5-14.5); Red Blood Cell (RBC) Count 3.61 mill/uL (4.20-5.40); White Blood Cell (WBC) Count 5.9 thou/uL (4.8-10.8)
[2018-06-11 05:54] LABS: Anion Gap 13 mmol/L (10-20); BUN (Urea Nitrogen) 5 mg/dL (7.0-18.7); Calc. Creatinine Clearance 120 mL/min (70-130); Calcium 9.5 mg/dL (7.8-10.44); Carbon Dioxide 27 mmol/L (22-29); Chloride 102 mmol/L (98-107); Estimated GFR-MDRD Greater than 90; Glucose 89 mg/dL (70-105); Lipase 53 U/L (8-78); Potassium 3.6 mmol/L (3.5-5.1); Sodium 138 mmol/L (136-145)
[2018-06-11] MEDS: HYDROcodone/Acetaminophen 5/325 mg Tablet PO PRN ×2 (07:43→23:26)
[2018-06-11] MEDS: Pantoprazole 40 MG VIAL IVP SCH ×2 (07:43→21:36)
--- NOTE | 2018-06-11 12:21 | PRG ---
DATE OF SERVICE: 06/11/2018 SUBJECTIVE: Ms. Barr feels like her abdominal pain is probably improving a bit. She still reques pranav morphine this morning though. No nausea, no vomiting. She has been otherwise stable and afebril e. OBJECTIVE: VITAL SIGNS: Temperature 98.2, blood pressure 140/90, 97% oxygen saturation on room air. GENERAL: No acute distress. HEART: Regular rate and rhythm. LUNGS: Clear to auscultation bilaterally. ABDOMEN: Still tenderness to palpation in the epigastrium, but no guarding, rebound tenderness. Non tender elsewhere. EXTREMITIES: No peripheral edema. LABORATORY STUDIES: WBC 5.9, hemoglobin 13.0, platelets 195. Sodium 138, potassium 3.6, BUN 5, crea tinine 0.59. Lipase has normalized now at 53. ASSESSMENT AND PLAN: 1. Pancreatitis secondary to alcohol, acute, recurrent. 2. Epigastric pain. By all objective measures, her pancreatitis appears to have essentially resolve d. She continues to have some residual pain which is not unusual. I do think we should try to advan ce her diet today and try to wean off the pain medications, look toward discharge within the next day or two if possible. I again reiterated with the patient that it is going to be very important to co mpletely abstain from all alcohol going forward. She would also do well to quit smoking.
--- NOTE | 2018-06-11 17:43 | PDOC.PN ---
- Subjective Encounter Start Date: 06/11/18 Encounter Start Time: 08:20 Pt seen for followup re: acute alcoholic pancreatitis. Reports ongoing abdo pain, unable to tolerate oral diet. - Objective Resuscitation Status: Resuscitation Status FULL:Full Resuscitation Vital Signs & Weight: Vital Signs (12 hours) Temp Pulse Resp BP BP Pulse Ox 06/11/18 17:00 97.7 F 78 19 131/89 100 06/11/18 13:00 140/90 06/11/18 09:00 140/90 06/11/18 08:00 97 06/11/18 07:39 98.2 F 78 17 140/90 100 Weight Weight 128 lb 11.2 oz I&O: 06/10/18 06/11/18 06/12/18 06:59 06:59 06:59 Intake Total 4113 3900 Balance 4113 3900 Result Diagrams: 06/11/18 03:59 06/11/18 03:59 Phys Exam - Physical Examination Constitutional: NAD HEENT: moist MMs, sclera anicteric, oral pharynx no lesions, 2+ tonsils Neck: no nodes, no JVD, supple, full ROM Respiratory: clear to auscultation bilateral Cardiovascular: RRR, no rub S1, S2 Gastrointestinal: soft, non-tender, no distention, positive bowel sounds Neurological: moves all 4 limbs Lymphatic: no nodes Psychiatric: normal affect, A&O x 3 Dx/Plan (1) Acute alcoholic pancreatitis Code(s): K85.20 - ALCOHOL INDUCED ACUTE PANCREATITIS WITHOUT NECROSIS OR INFCT Status: Acute Comment: Lipase normal, pt continues to have pain, continue supportive management (2) Gastritis Code(s): K29.70 - GASTRITIS, UNSPECIFIED, WITHOUT BLEEDING Status: Acute Comment: continue PPI (3) Alcohol abuse Code(s): F10.10 - ALCOHOL ABUSE, UNCOMPLICATED Status: Chronic Comment: on ASE protocol (4) Hyponatremia Code(s): E87.1 - HYPO-OSMOLALITY AND HYPONATREMIA Status: Resolved - Plan * . Review of Systems - Review of Systems Constitutional: negative: fever, chills, sweats, weakness, malaise Cardiovascular: negative: chest pain, palpitations, orthopnea, paroxysmal nocturnal dyspnea, edema, light headedness Gastrointestinal: Nausea, Abdominal Pain. negative: Vomiting, Diarrhea, Constipation, Melena, Hematochezia Genitourinary: negative: Dysuria, Frequency, Incontinence, Hematuria, Retention Skin: negative: Rash, Lesions, Andrew, Bruising - Medications/Allergies Allergies/Adverse Reactions: Allergies Allergy/AdvReac Type Severity Reaction Status Date / Time butorphanol tartrate Allergy Rash Verified 06/05/18 22:38 [From Stadol] ketorolac tromethamine Allergy Rash Verified 06/05/18 22:38 [From Toradol] latex Allergy Rash Verified 06/05/18 22:38 meperidine HCl [From Demerol] Allergy Rash Verified 06/05/18 22:38 Penicillins Allergy Rash Verified 06/05/18 22:38 promethazine HCl Allergy Rash Verified 06/05/18 22:38 [From Phenergan] Medications: Current Medications Hydrocodone Bitart/Acetaminophen ([place] 5/325) 1 tab PO Q6H PRN PRN Reason: Mild-Moderate Pain (1-5) Last Admin: 06/11/18 07:43 Dose: 1 tab Lactated Ringer's (Lactated Ringer's) 1,000 mls @ 150 mls/hr IV .Q6H40M [facility] Last Admin: 06/11/18 15:35 Dose: 1,000 mls Morphine Sulfate (Morphine) 2 mg SLOW IVP Q2H PRN PRN Reason: Moderate to Severe Pain (6-10) Last Admin: 06/11/18 15:38 Dose: 2 mg Ondansetron HCl (Zofran) 2 mg IVP Q4H PRN PRN Reason: SEVERE PAIN (7-10) Last Admin: 06/06/18 20:27 Dose: 2 mg Pantoprazole Sodium (Protonix) 40 mg IVP Q12HR [facility] Last Admin: 06/11/18 07:43 Dose: 40 mg Sodium Chloride (Flush - Normal Saline) 10 ml IVF Q12HR [facility] Last Admin: 06/11/18 07:44 Dose: 10 ml Sodium Chloride (Flush - Normal Saline) 10 ml IVF PRN PRN PRN Reason: Saline Flush Last Admin: 06/07/18 22:20 Dose: 10 ml
[2018-06-12 05:02] LABS: #Basophils 0.1 thou/uL (0.0-0.2); #Eosinphils 0.1 thou/uL (0.0-0.7); #Lymphocytes 1.8 thou/uL (1.20-3.40); #Monocytes 0.8 thou/uL (0.11-0.59); #Neutrophils 3.2 thou/uL (1.40-6.50); %Basophils 1.3 % (0.0-1.0); %Eosinophils 1.6 % (0.0-10.0); %Lymphocytes 30.5 % (21.0-51.0); %Monocytes 13.1 % (0.0-10.0); %Neutrophils 53.5 % (42.0-75.0); Hemoglobin 11.7 g/dL (12.0-16.0); Mean Corpuscular HGB CONC 33.8 g/dL (32.0-36.0); Mean Corpuscular Hemoglobin 36.4 pg (27.0-31.0); Mean Platelet Volume 8.5 fL (7.4-10.4); Platelet Count 207 thou/uL (130-400); RBC Distribution Width 12.8 % (11.5-14.5); Red Blood Cell (RBC) Count 3.22 mill/uL (4.20-5.40)
[2018-06-12 05:29] LABS: Anion Gap 14 mmol/L (10-20); BUN (Urea Nitrogen) 4 mg/dL (7.0-18.7); Calc. Creatinine Clearance 116 mL/min (70-130); Calcium 9.1 mg/dL (7.8-10.44); Carbon Dioxide 25 mmol/L (22-29); Chloride 102 mmol/L (98-107); Estimated GFR-MDRD Greater than 90; Glucose 134 mg/dL (70-105); Lipase 32 U/L (8-78); Potassium 3.5 mmol/L (3.5-5.1); Sodium 137 mmol/L (136-145)
[2018-06-12] MEDS: HYDROcodone/Acetaminophen 5/325 mg Tablet PO PRN ×2 (06:16→12:08)
[2018-06-12] MEDS: Lactated Ringer's 1,000 ML IV SCH ×5 (06:21→23:51)
[2018-06-12] MEDS: Pantoprazole 40 MG VIAL IVP SCH ×2 (08:00→20:35)
--- NOTE | 2018-06-12 18:07 | PDOC.PN ---
- Subjective Encounter Start Date: 06/12/18 Encounter Start Time: 10:00 Pt seen for followup re: acute alcoholic pancreatitis. Reports ongoing abdo pain, not tolerating diet. - Objective Resuscitation Status: Resuscitation Status FULL:Full Resuscitation MAR Reviewed: Yes Vital Signs & Weight: Vital Signs (12 hours) Temp Pulse Resp BP BP Pulse Ox 06/12/18 16:30 97.9 F 75 16 130/84 99 06/12/18 13:00 121/72 06/12/18 11:38 98.0 F 71 16 121/72 97 06/12/18 08:08 134/85 06/12/18 08:00 97 06/12/18 07:49 97.9 F 71 16 134/85 97 Weight Weight 128 lb 11.2 oz I&O: 06/11/18 06/12/18 06/13/18 06:59 06:59 06:59 Intake Total 3900 3890 Balance 3900 3890 Result Diagrams: 06/12/18 03:10 06/12/18 03:10 Additional Labs: Labs reviewed by me Phys Exam - Physical Examination Constitutional: NAD HEENT: moist MMs Neck: supple Respiratory: clear to auscultation bilateral Cardiovascular: RRR Gastrointestinal: soft Neurological: moves all 4 limbs Psychiatric: normal affect Dx/Plan (1) Acute alcoholic pancreatitis Code(s): K85.20 - ALCOHOL INDUCED ACUTE PANCREATITIS WITHOUT NECROSIS OR INFCT Status: Acute Comment: lipase is still normal, waiting for pt to tolerate diet (2) Gastritis Code(s): K29.70 - GASTRITIS, UNSPECIFIED, WITHOUT BLEEDING Status: Acute Comment: on PPI (3) Alcohol abuse Code(s): F10.10 - ALCOHOL ABUSE, UNCOMPLICATED Status: Chronic Comment: continue ASE protocol (4) Hyponatremia Code(s): E87.1 - HYPO-OSMOLALITY AND HYPONATREMIA Status: Resolved - Plan * . Review of Systems - Review of Systems Cardiovascular: negative: chest pain, palpitations, orthopnea, paroxysmal nocturnal dyspnea, edema, light headedness Gastrointestinal: Nausea, Abdominal Pain. negative: Vomiting, Diarrhea, Constipation, Melena, Hematochezia - Medications/Allergies Allergies/Adverse Reactions: Allergies Allergy/AdvReac Type Severity Reaction Status Date / Time butorphanol tartrate Allergy Rash Verified 06/05/18 22:38 [From Stadol] ketorolac tromethamine Allergy Rash Verified 06/05/18 22:38 [From Toradol] latex Allergy Rash Verified 06/05/18 22:38 meperidine HCl [From Demerol] Allergy Rash Verified 06/05/18 22:38 Penicillins Allergy Rash Verified 06/05/18 22:38 promethazine HCl Allergy Rash Verified 06/05/18 22:38 [From Phenergan] Medications: Current Medications Hydrocodone Bitart/Acetaminophen ([place] 5/325) 1 tab PO Q6H PRN PRN Reason: Mild-Moderate Pain (1-5) Last Admin: 06/12/18 12:08 Dose: 1 tab Lactated Ringer's (Lactated Ringer's) 1,000 mls @ 150 mls/hr IV .Q6H40M WHITNEY Last Admin: 06/12/18 08:06 Dose: Not Given Morphine Sulfate (Morphine) 2 mg SLOW IVP Q2H PRN PRN Reason: Moderate to Severe Pain (6-10) Last Admin: 06/12/18 13:57 Dose: 2 mg Ondansetron HCl (Zofran) 2 mg IVP Q4H PRN PRN Reason: SEVERE PAIN (7-10) Last Admin: 06/06/18 20:27 Dose: 2 mg Pantoprazole Sodium (Protonix) 40 mg IVP Q12HR WHITNEY Last Admin: 06/12/18 08:00 Dose: 40 mg Sodium Chloride (Flush - Normal Saline) 10 ml IVF Q12HR WHITNEY Last Admin: 06/12/18 08:06 Dose: 10 ml Sodium Chloride (Flush - Normal Saline) 10 ml IVF PRN PRN PRN Reason: Saline Flush Last Admin: 06/07/18 22:20 Dose: 10 ml
[2018-06-12] MEDS ORDERED: Acetaminophen/Codeine 30-300mg Tablet PO PRN (19:17)
[2018-06-12] MEDS ORDERED: Lidocaine 5% Patch TD SCH (20:00)
[2018-06-12] MEDS: Acetaminophen/Codeine 30-300mg Tablet PO PRN (20:36)
--- NOTE | 2018-06-12 21:37 | PRG ---
DATE OF SERVICE: 06/12/2018 SUBJECTIVE: Ms. Barr has remained clinically stable. She continues to complain of severe abdomin al pain every time she eats. She has remained on a liquid diet. There has been no vomiting though. She continues to request pain medications. She last received morphine a couple of hours ago. OBJECTIVE: VITAL SIGNS: Temperature 97.9, pulse 75, blood pressure 130/84, 99% oxygen saturation on room air. GENERAL: No acute distress. HEART: Regular rate and rhythm. LUNGS: Clear to auscultation bilaterally. ABDOMEN: Bowel sounds present. Tender to palpation in the epigastrium. No guarding, rebound tender ness. EXTREMITIES: No peripheral edema. LABORATORY STUDIES: WBC 6, hemoglobin 11.7, platelets 207. Sodium 137, potassium 3.5, BUN 4, creati nine 0.61, lipase 32. Gastric biopsies demonstrated reactive gastropathy, negative for H. pylori. ASSESSMENT AND PLAN: 1. Pancreatitis, alcoholic, acute, recurrent. 2. Epigastric pain, persistent despite suspected resolution of acute pancreatitis. 3. Mild gastritis, with biopsies negative for Helicobacter pylori. I again discussed with the patient that all laboratory and clinical markers are favorable. It is unc lear why her pain requirement remained so large. At this point, I think we need to rule out complica tions such as large pseudocyst or fluid collection. We will go ahead and order a CT of the abdomen, pancreas protocol for this purpose.
[2018-06-13] MEDS: Acetaminophen/Codeine 30-300mg Tablet PO PRN ×3 (03:18→16:42)
[2018-06-13] MEDS: Lactated Ringer's 1,000 ML IV SCH ×2 (05:21→14:45)
[2018-06-13 05:24] LABS: #Basophils 0.1 thou/uL (0.0-0.2); #Eosinphils 0.1 thou/uL (0.0-0.7); #Lymphocytes 2.1 thou/uL (1.20-3.40); #Monocytes 0.7 thou/uL (0.11-0.59); %Eosinophils 1.4 % (0.0-10.0); %Lymphocytes 35.6 % (21.0-51.0); %Monocytes 12.1 % (0.0-10.0); %Neutrophils 49.8 % (42.0-75.0); Hemoglobin 11.1 g/dL (12.0-16.0); Mean Corpuscular HGB CONC 33.3 g/dL (32.0-36.0); Mean Corpuscular Hemoglobin 35.8 pg (27.0-31.0); Platelet Count 210 thou/uL (130-400); RBC Distribution Width 12.7 % (11.5-14.5); Red Blood Cell (RBC) Count 3.11 mill/uL (4.20-5.40)
[2018-06-13 05:36] LABS: Anion Gap 10 mmol/L (10-20); BUN (Urea Nitrogen) Less than 4 mg/dL (7.0-18.7); Calc. Creatinine Clearance 114 mL/min (70-130); Calcium 8.7 mg/dL (7.8-10.44); Carbon Dioxide 27 mmol/L (22-29); Chloride 106 mmol/L (98-107); Estimated GFR-MDRD Greater than 90; Glucose 93 mg/dL (70-105); Lipase 21 U/L (8-78); Potassium 3.4 mmol/L (3.5-5.1); Sodium 140 mmol/L (136-145)
[2018-06-13] MEDS ORDERED: Lidocaine Patch Removal 1 EACH TOP SCH (08:00)
[2018-06-13] MEDS: Pantoprazole 40 MG VIAL IVP SCH (08:33)
--- NOTE | 2018-06-13 11:02 | CT ---
CT WITH AND WITHOUT CONTRAST: HISTORY: Pancreatitis. Evaluate for pseudocyst/peripancreatic abscess. COMPARISON: 11/26/2017 FINDINGS: The lung bases are clear. The visualized heart size is normal. The visualized portal vein is also p atent. The descending thoracic aorta and the abdominal aorta have a normal caliber. Symmetric atten uation of the psoas muscles. The liver, spleen, and adrenal glands have appropriate enhancement. Symmetric enhancement of the kidneys. No obstructive uropathy. The visualized alimentary canal is patent. No evidence of calcifications in the pancreas. The pancreas has homogeneous enhancement and attenuat ion. There is no evidence of peripancreatic inflammatory change. There is no evidence of abscess, c yst, or pseudocyst. The visualized pancreatic duct is unremarkable. Evaluation of the common bile duct is limited on this examination. The visualized osseous structures have an overall normal appearance. Heterogeneous appearance of the visualized uterine fundus, incompletely evaluated. IMPRESSION: No CT evidence of pancreatitis. No CT evidence of cyst or pseudocyst in the peripancreatic region. POS: CHELSEA
[2018-06-13] MEDS ORDERED: Potassium Chloride 20 MEQ TAB PO SCH (13:15)
[2018-06-13 16:55] VITALS: BP 130/88; TEMP 97.7
--- NOTE | 2018-06-13 23:35 | DIS ---
DATE OF ADMISSION: 06/05/2018 DATE OF DISCHARGE: 06/13/2018 PRIMARY CARE PROVIDER: None DISCHARGE DIAGNOSES: 1. Acute alcoholic pancreatitis. 2. Abdominal pain secondary to acute alcoholic pancreatitis. CONDITION OF PATIENT ON THE DAY OF DISCHARGE: Stable. I assessed Ms. Barr on the day of discharg e. She reports that abdominal pain is slightly better. She is tolerating some diet. Vital signs ar e stable. S1 and S2 are heard, regular. Lungs are clear to auscultation bilaterally. Abdomen is so ft, nontender, bowel sounds are heard. CONSULTATIONS DURING THIS HOSPITALIZATION: Gastroenterology, Dr. Yohannes Carlson. HOSPITAL COURSE: Ms. Barr is a pleasant 37-year-old lady, who was admitted to [facility] for acute alcoholic pancreatitis on 06/05/2018. Please refer to Dr. Cobb's histor y and physical note dated 06/06/2018 for further details. Abdominal ultrasound done on 06/07/2018 di d not show any sonographic evidence of cholelithiasis or cholecystitis. She was seen by [facility]. She underwent EGD on 06/09/2018. She was found to have mild patchy nonerosive gastrit is, biopsied to rule out Helicobacter pylori. She also had mild duodenitis, nonerosive in the duoden al bulb. She was advised to continue PPI. She was advised to stop alcohol and tobacco use. Her lip ase elevation resolved. She continued to have on and off abdominal pain. She underwent CT scan of t he abdomen on 06/13/2018, which did not show any evidence of pancreatitis or evidence of cyst or pseu docyst in the peripancreatic region. She is being discharged home in a stable condition and advised to follow up with her primary care provider in 3-5 days. Please note that gastric biopsy pathology report showed reactive gastropathy. No Helicobacter pylori organisms were identified. DISCHARGE MEDICATIONS: Include Protonix 40 mg daily; lidocaine 5% patch daily, with a prescription f or 5 doses; and Tylenol No. 3 one tablet every 6 hours as needed, with a prescription for 10 doses. DISCHARGE DESTINATION: Home. TOTAL AMOUNT OF TIME SPENT COORDINATING THIS DISCHARGE: Thirty three minutes. Please note that on the day of discharge, she had white count of 6000, hemoglobin 11.1, platelet coun t 210,000. Sodium 140; potassium 3.4, which is being replaced; and creatinine 0.62.
== END 2018-06-13 17:04 | disposition home or self-care (01) | DRG 439 ==
LOC: ERS 10:59 → 2SW 20:24 → OBSVTOIN 06-07 16:09 → T4-A 06-07 23:10
PROVIDERS: ADMIT Hospitalist; ATTEND Hospitalist
PROC: 0DB68ZX Excision of Stomach, Via Natural or Artificial Opening Endoscopic, Diagnostic (ICD-10-PCS; principal; 2018-06-09)
DX: K85.20 Alcohol induced acute pancreatitis without necrosis or infection (principal); E87.1 Hypo-osmolality and hyponatremia; E87.2 Acidosis; K29.80 Duodenitis without bleeding; F17.210 Nicotine dependence, cigarettes, uncomplicated
CPT/HCPCS: 36415; 74170; 76705; 80048; 80053; 81003; 81025; 83690; 85025; 85652; 86140; 88305; 88312; 90471; 90732; 96361; 96374; 96376; A4216; C9113; G0009; J2001; J2250; J2270; J2405; J2704; J7120; Q0162; S0028

== ENCOUNTER 2018-12-22 00:17 | Inpatient (IN) | payer SELFPAY ==
[2018-12-22 00:41] LABS: Bilirubin Negative (Negative); Blood, Urine Negative (Negative); Clarity CLEAR (Clear); Glucose, Urine (Dipstick) Negative (Negative); Leukocyte Negative (Negative); Nitrite Negative (Negative); Protein, Urine (Dipstick) Negative (Neg-Trace)
[2018-12-22 00:49] LABS: Pregnancy Test - Urine (BHCG) Negative (Negative); Pregu Control Background? CLEAR/WHITE (CLR/WHITE); Pregu Control Bar Appear? YES (CONTROL BAR)
[2018-12-22 01:05] LABS: #Basophils 0.1 thou/uL (0.0-0.2); #Monocytes 0.6 thou/uL (0.11-0.59); #Neutrophils 12.3 thou/uL (1.40-6.50); %Basophils 0.4 % (0.0-1.0); %Eosinophils 0.1 % (0.0-10.0); %Lymphocytes 7.1 % (21.0-51.0); %Monocytes 4.2 % (0.0-10.0); %Neutrophils 88.2 % (42.0-75.0); Hemoglobin 14.2 g/dL (12.0-16.0); MDiff Complete? YES; Macrocytosis SLIGHT = 6-15 cells (100X) (0-5/hpf); Mean Corpuscular HGB CONC 33.7 g/dL (32.0-36.0); Mean Corpuscular Hemoglobin 36.6 pg (27.0-31.0); Mean Platelet Volume 8.8 fL (7.4-10.4); Platelet Count 106 thou/uL (130-400); Platelet Morphology Comment Appears Decreased; RBC Distribution Width 11.7 % (11.5-14.5); Red Blood Cell (RBC) Count 3.88 mill/uL (4.20-5.40)
[2018-12-22 01:06] LABS: ALT (SGPT) 228 U/L (8-55); AST (SGOT) 651 U/L (5-34); Alkaline Phosphatase 74 U/L (40-150); Anion Gap 15 mmol/L (10-20); BUN (Urea Nitrogen) 8 mg/dL (7.0-18.7); Bilirubin, Total 1.2 mg/dL (0.2-1.2); Calc. Creatinine Clearance 0 mL/min (70-130); Calcium 9.2 mg/dL (7.8-10.44); Carbon Dioxide 29 mmol/L (22-29); Chloride 93 mmol/L (98-107); Estimated GFR-MDRD Greater than 90; Globulin 2.9 g/dL (2.4-3.5); Glucose 150 mg/dL (70-105); Lipase 187 U/L (8-78); Potassium 3.3 mmol/L (3.5-5.1); Protein, Total 6.9 g/dL (6.0-8.3); Sodium 134 mmol/L (136-145)
[2018-12-22] MEDS ORDERED: Morphine 4 MG/ML VIAL ONE ×2 (02:53→05:14)
[2018-12-22] MEDS ORDERED: Ondansetron PF 4 MG/2 ML Vial ONE (02:53)
[2018-12-22 06:35] VITALS: BMI 24.2
[2018-12-22] MEDS ORDERED: Ondansetron PF 4 MG/2 ML Vial IVP PRN (06:48)
[2018-12-22] MEDS ORDERED: Ondansetron ODT 4 MG TAB SL PRN (06:48)
[2018-12-22] MEDS ORDERED: Acetaminophen 325 MG TAB PO PRN (06:48)
[2018-12-22] MEDS: Sodium Chloride 0.9% 1,000 ML IV SCH ×3 (07:03→20:13)
[2018-12-22] MEDS ORDERED: hydrALAZINE 20 MG/ML VIAL SLOW IVP PRN (08:06)
[2018-12-22] MEDS ORDERED: Nitroglycerin 0.4 MG TAB (25 Tab Bottle) SL PRN (08:06)
--- NOTE | 2018-12-22 08:19 | ULT ---
GALLBLADDER ULTRASOUND: Date; 12/22/18 COMPARISON: 06/07/18. INDICATION: Abdominal pain with history of pancreatitis. FINDINGS: There is coarsened echotexture of the liver. No acute gallbladder pathology. Common duct is normal, w here demonstrated, at 3-4 mm in diameter. Carrera's sign reported as negative by the pharmaceutical sales specialist. No a scites. IMPRESSION: 1. No acute gallbladder pathology. 2. Slight coarsening of the hepatic echotexture. Recommend further evaluation with liver function en zymes. POS: CHRIS
[2018-12-22 08:43] LABS: Phosphorus 1.9 mg/dL (2.3-4.7)
[2018-12-22] MEDS ORDERED: Morphine 4 MG/ML VIAL SLOW IVP PRN (09:00)
[2018-12-22] MEDS ORDERED: Potassium Phosphate 15 MMOL in Sodium Chloride 0.9% 250 ML 250 ML IVPB SCH (09:00)
[2018-12-22] MEDS ORDERED: Magnesium 2 GM/50 ML 2 GM in Premix Bag 1 BAG IVPB SCH (09:00)
[2018-12-22] MEDS ORDERED: HYDROcodone/Acetaminophen 5/325 mg Tablet PO PRN (11:05)
[2018-12-22] MEDS: HYDROcodone/Acetaminophen 5/325 mg Tablet PO PRN ×3 (11:14→20:12)
[2018-12-22] MEDS: Morphine 2 MG/ML SYRINGE SLOW IVP PRN ×3 (13:03→23:20)
--- NOTE | 2018-12-22 14:04 | HP ---
PRIMARY CARE PHYSICIAN: None. CHIEF COMPLAINT: Abdominal pain. HISTORY OF PRESENTING ILLNESS: Ms. Barr is a 38-year-old woman with known history of alcohol abuse and repeated alcoholic pancreatitis, who came back to the emergency room with similar presentation. History is mainly obtained by the patient herself and electronic medical records have been reviewed. She was last admitted to our facility in March 2018 with alcoholic pancreatitis. At that time, she underwent EGD for persistent abdominal pain by Dr. Carlson. EGD showed mild gastritis and duodenitis, otherwise it was normal. Her pathology for H. pylori was negative. She returned to the emergency room yesterday evening with complaints of bilateral flank pain. She reports drinking heavily on her birthday a prior to presentation. 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 Her abdominal pain has been worse and she has been throwing up all day and could not keep down any food or water. She has no fever or chills. She has no urinary complaints. She denies any diarrhea or hematochezia or melena. No other recent illnesses. In the emergency room, her blood pressure was 132/94 with a pulse of 104. Her workup was consistent once again with alcoholic pancreatitis with lipase to 187. AST and ALT are elevated to 651 and 228, respectively, consistent with acute alcoholic hepatitis as well. She was given pain medications and was started on IV fluids and is now being admitted for acute alcoholic pancreatitis because of recurrent episodes because of her continuous drinking habits. PAST MEDICAL HISTORY: 1. History of alcoholic pancreatitis. 2. Alcohol abuse. 3. Borderline diabetes in the past and possibly chronic pancreatitis by now. SURGICAL HISTORY: Tubal ligation. PSYCHIATRY: None. FAMILY HISTORY: Mother was also an alcoholic. SOCIAL HISTORY: She drinks on a daily basis, but drinks heavily sometimes, like yesterday and smokes half pack of cigarettes per day. She reports that everybody around her drinks alcohol in the house. ALLERGIES: MULTIPLE, DEMEROL, LATEX, PENICILLIN, STADOL, TORADOL. HOME MEDICATIONS: None. REVIEW OF SYSTEMS: A 14-point of review of system was done, it is negative except for those mentioned in the history and physical. LABORATORY EXAMINATION: CBC shows WBC is 14.0 with 88% neutrophils, hemoglobin 14.2, platelet count of 106. Serum chemistry shows sodium of 134, potassium 3.3, blood sugar 150, phosphorus low at 1.9, magnesium low at 1.0. AST 61, ALT 228, lipase 187. Urinalysis unremarkable. test negative. Ultrasound of the abdomen was done in the emergency room, which shows no acute gallbladder pathology and slightly coarse texture of the liver. PHYSICAL EXAMINATION: VITAL SIGNS: This morning, temperature 98.9, pulse of 77, respirations 18, saturating 98% on room air, blood pressure 133/86. GENERAL: No acute distress. She is sitting up in bed and appears very comfortable. HEENT EXAMINATION: Mucous membrane is moist and pink. No oropharyngeal exudate or erythema. Head is normocephalic and atraumatic. Pupils are equal and reactive to light and accommodation. Extraocular movement intact. NECK: Supple without any lymphadenopathy, JVD, or bruit. CHEST: Clear to auscultation without any wheezing, rales, or rhonchi. HEART: Rhythm is regular without any murmurs, rubs, or gallops. ABDOMEN: Soft, not really tender on palpation. Bowel sounds are heard. There is no rebound, guarding, or rigidity. EXTREMITIES: Free of any cyanosis, clubbing, or edema. NEUROLOGICAL EXAMINATION: Nonfocal. SKIN: Free of any rashes or bruises. Feels warm and dry to touch. PSYCHIATRIC: Normal affect. IMPRESSION AND PLAN: 1. Acute alcoholic pancreatitis. We will treat with IV fluids, n.p.o. status. Minimize pain medication as the patient exhibits significant drug-seeking behavior. She has been asking me to prescribe her the narcotic that starts with D and seems ignorant and states that it just Dilantin. I have reported that it is going to make things worse in terms of constipation and because she is allergic to so many narcotics, otherwise. We will minimize the narcotics at this time and monitor the labs. Recheck amylase, lipase, and liver profile in the morning. 2. Elevated liver enzymes. Suspect acute alcoholic hepatitis. We will recheck in the morning. If they do not start to go down, she might need treatment with steroids for acute alcoholic hepatitis. At this time, she does not appear to be in any acute liver failure. 3. Alcohol abuse. Extensive counseling has been done, but it does not seem like that the patient grasps the reality of her illness. 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 4. Hypomagnesemia and hypophosphatemia. We will replace those and recheck in the morning. 5. Deep venous thrombosis and gastrointestinal prophylaxis and walking program. DISPOSITION: Ms. Barr is being admitted again for her acute alcoholic pancreatitis and hepatitis. Management as above. Estimated length of stay less than 2 midnights, but further management will depend upon her clinical course. If her symptoms do not improve, consider CT scan of the abdomen and pelvis to rule out pseudocyst formation with repeated pancreatitis episodes. Job ID: [id number]
[2018-12-22] MEDS: Ondansetron PF 4 MG/2 ML Vial SLOW IVP PRN (20:12)
[2018-12-23] MEDS: Sodium Chloride 0.9% 1,000 ML IV SCH ×4 (03:37→22:50)
[2018-12-23] MEDS: HYDROcodone/Acetaminophen 5/325 mg Tablet PO PRN ×5 (03:37→21:15)
[2018-12-23 06:50] LABS: #Eosinphils 0.2 thou/uL (0.0-0.7); #Lymphocytes 0.7 thou/uL (1.20-3.40); #Monocytes 0.3 thou/uL (0.11-0.59); %Basophils 0.5 % (0.0-1.0); %Eosinophils 1.7 % (0.0-10.0); %Lymphocytes 7.2 % (21.0-51.0); %Monocytes 3.2 % (0.0-10.0); %Neutrophils 87.4 % (42.0-75.0); Hemoglobin 12.8 g/dL (12.0-16.0); Mean Corpuscular HGB CONC 33.2 g/dL (32.0-36.0); Mean Corpuscular Hemoglobin 36.2 pg (27.0-31.0); Platelet Count 69 thou/uL (130-400); Platelet Morphology Comment Appears Decreased; RBC Distribution Width 11.5 % (11.5-14.5); Red Blood Cell (RBC) Count 3.53 mill/uL (4.20-5.40); White Blood Cell (WBC) Count 9.2 thou/uL (4.8-10.8)
[2018-12-23 06:55] LABS: ALT (SGPT) 624 U/L (8-55); AST (SGOT) 1835 U/L (5-34); Albumin 3.3 g/dL (3.5-5.0); Alkaline Phosphatase 62 U/L (40-150); Anion Gap 15 mmol/L (10-20); BUN (Urea Nitrogen) 6 mg/dL (7.0-18.7); Bilirubin, Direct 1.1 mg/dL (0.1-0.3); Bilirubin, Total 1.7 mg/dL (0.2-1.2); Calc. Creatinine Clearance 123 mL/min (70-130); Calcium 7.5 mg/dL (7.8-10.44); Carbon Dioxide 22 mmol/L (22-29); Chloride 100 mmol/L (98-107); Estimated GFR-MDRD Greater than 90; Glucose 63 mg/dL (70-105); Lipase 213 U/L (8-78); Magnesium 1.5 mg/dL (1.6-2.6); Phosphorus 2.5 mg/dL (2.3-4.7); Potassium 3.7 mmol/L (3.5-5.1); Protein, Total 5.7 g/dL (6.0-8.3); Sodium 133 mmol/L (136-145)
[2018-12-23] MEDS ORDERED: Sodium Chloride 0.9% 1,000 ML IV SCH (08:49)
[2018-12-23 09:15] LABS: INR-International Normal Ratio 1.4
[2018-12-23] MEDS: Morphine 2 MG/ML SYRINGE SLOW IVP PRN ×4 (09:40→23:50)
--- NOTE | 2018-12-23 09:42 | CT ---
FCT Abdomen Pelvis W WO con: 12/23/2018 8:43 AM CLINICAL INDICATION: Pancreatitis. , Abdominal pain and limited by mouth intake. COMPARISON: CT of the abdomen with and without contrast dated June 13, 2018 TECHNIQUE: {Institution specific, with verbiage regarding post-processing per institution protocol as necessary for billing and coding purposes.} Unenhanced and multi-phasic contrast enhanced imaging of the abdomen and pelvis. Scan phases: Arteria l and venous. {Post-processing description} IV contrast: 100 ml of Isovue-370 Oral contrast: None. FINDINGS: Pancreatitis: Present. Extent of disease: Diffuse enlargement. Parenchymal enhancement: Homogeneous. Necrosis: Absent . Pancreatic/Peripancreatic fluid collections: Present. Location: Intrapancreatic: No. {if yes, use features below to characterize} Extrapancreatic: Yes. {if yes, use features below to characterize} Characteristics: Homogeneous]. Diffuse circumferential edema seen within the anterior pararenal space Well demarcated wall: No. Extraluminal gas or Air/fluid level: None. Size & Location: Diffuse edema within the anterior pararenal space. Related extrapancreatic findings: Gallstones: No. Extrahepatic biliary dilatation: No. Venous thrombosis: No. Varices: No. Arterial (pseudo)aneurysm: No. {free text location, size} Pleural effusions: No. Ascites: No. There is diffuse fatty infiltration of the liver. IMPRESSION: Noncomplicated acute pancreatitis. No drainable focal fluid collection. Fatty liver
--- NOTE | 2018-12-23 13:14 | PDOC.PN ---
- Subjective Encounter Start Date: 12/23/18 Encounter Start Time: 13:12 Subjective: feels OK. no increase in abd pain but using Morphine w [place] alternatively -: no N/V -: denies eating anything from outside when she goes down to smoke - Objective MAR Reviewed: Yes Vital Signs & Weight: Vital Signs (12 hours) Temp Pulse Resp BP Pulse Ox 12/23/18 11:34 99 12/23/18 11:09 98 F 73 18 118/77 98 12/23/18 07:19 98.7 F 79 18 120/77 99 12/23/18 03:39 97.8 F 68 18 144/89 H 97 Weight Weight 128 lb 1 oz I&O: 12/22/18 12/23/18 12/24/18 06:59 06:59 06:59 Intake Total 2457 Balance 2457 Result Diagrams: 12/23/18 06:05 12/23/18 06:05 Additional Labs: Laboratory Tests 06/08/18 06/13/18 12/22/18 03:36 04:25 00:34 Phosphorus Magnesium Total Bilirubin 1.2 AST 18 651 H ALT 24 228 H Lipase 21 187 H 12/22/18 12/23/18 00:34 06:05 Phosphorus 1.9 L 2.5 Magnesium 1.0 L 1.5 L Total Bilirubin 1.7 H AST 1835 H ALT 624 H Lipase 213 H Phys Exam - Physical Examination Constitutional: NAD HEENT: PERRLA, moist MMs, sclera anicteric, oral pharynx no lesions Neck: no nodes, no JVD, supple, full ROM Respiratory: no wheezing, no rales, no rhonchi, clear to auscultation bilateral Cardiovascular: RRR, no significant murmur, no rub Gastrointestinal: soft, non-tender, no distention, positive bowel sounds Musculoskeletal: no edema, pulses present Neurological: non-focal, normal sensation, moves all 4 limbs Psychiatric: normal affect, A&O x 3 Skin: no rash Dx/Plan (1) Acute alcoholic hepatitis Code(s): K70.10 - ALCOHOLIC HEPATITIS WITHOUT ASCITES Status: Acute Comment : LFT worse today (2) Acute alcoholic pancreatitis Code(s): K85.20 - ALCOHOL INDUCED ACUTE PANCREATITIS WITHOUT NECROSIS OR INFCT Status: Acute Comment: Lipase worse today (3) Alcohol abuse Code(s): F10.10 - ALCOHOL ABUSE, UNCOMPLICATED Status: Chronic Comment: continue ASE protocol (4) Hyponatremia Code(s): E87.1 - HYPO-OSMOLALITY AND HYPONATREMIA Status: Chronic - Plan out of bed/ambulate, DVT proph w/SCDs Ct A/P done and there is no abscess or pseudocyst. -: DF score 25 based on PT & bilirubin.no indication for steroids. -: Increase IVF and recheck labs in am -: will request GI recs .pt high risk for decompensation d/t chr alcohalism -: HD stable.Strict NPO for now * .Clinically worse than yesterday and not safe for discharge * high risk of morbidity with recurrent pancreatitis * will change to Inpt status Review of Systems - Review of Systems Constitutional: negative: fever, chills, sweats, weakness, malaise, other Respiratory: negative: Cough, Dry, Shortness of Breath, Hemoptysis, SOB with Excertion, Pleuritic Pain, Sputum, Wheezing Cardiovascular: negative: chest pain, palpitations, orthopnea, paroxysmal nocturnal dyspnea, edema, light headedness, other Gastrointestinal: Abdominal Pain. negative: Nausea, Vomiting, Diarrhea, Constipation, Melena, Hematochezia, Other Genitourinary: negative: Dysuria, Frequency, Incontinence, Hematuria, Retention , Other Musculoskeletal: negative: Neck Pain, Shoulder Pain, Arm Pain, Back Pain, Hand Pain, Leg Pain, Foot Pain, Other Skin: negative: Rash, Lesions, Andrew, Bruising, Other Neurological: negative: Weakness, Numbness, Incoordination, Change in Speech, Confusion, Seizures, Other - Medications/Allergies Allergies/Adverse Reactions: Allergies Allergy/AdvReac Type Severity Reaction Status Date / Time butorphanol tartrate Allergy Rash Verified 06/05/18 22:38 [From Stadol] ketorolac tromethamine Allergy Rash Verified 06/05/18 22:38 [From Toradol] latex Allergy Rash Verified 06/05/18 22:38 meperidine HCl [From Demerol] Allergy Rash Verified 06/05/18 22:38 Penicillins Allergy Rash Verified 06/05/18 22:38 promethazine HCl Allergy Rash Verified 06/05/18 22:38 [From Phenergan] Medications: Current Medications Hydrocodone Bitart/Acetaminophen ([place] 5/325) 1 tab PO Q4H PRN PRN Reason: Moderate Pain (4-6) Hydrocodone Bitart/Acetaminophen ([place] 5/325) 2 tab PO Q4H PRN PRN Reason: Severe Pain (7-10) Last Admin: 12/23/18 12:46 Dose: 2 tab Hydralazine HCl (Apresoline) 10 mg SLOW IVP Q4H PRN PRN Reason: SBP > 170 and HR < 70 Sodium Chloride (Normal Saline 0.9%) 1,000 mls @ 250 mls/hr IV .Q4H WHITNEY Morphine Sulfate (Morphine) 2 mg SLOW IVP Q4H PRN PRN Reason: Moderate Pain (4-6) Last Admin: 12/23/18 09:40 Dose: 2 mg Nitroglycerin (Nitrostat) 0.4 mg SL Q5MIN PRN PRN Reason: Chest Pain Ondansetron HCl (Zofran) 4 mg SLOW IVP Q6H PRN PRN Reason: Nausea Last Admin: 12/22/18 20:12 Dose: 4 mg
[2018-12-23] MEDS: Ondansetron PF 4 MG/2 ML Vial SLOW IVP PRN ×2 (14:57→21:14)
[2018-12-23] MEDS ORDERED: ISOVUE-370 76%-LOCM 1 ML ONE (15:42)
--- NOTE | 2018-12-24 00:27 | CON ---
DATE OF CONSULTATION: 12/23/2018 REASON FOR CONSULTATION: Recurrent pancreatitis. CONSULTING PHYSICIAN: Dr. Jadyn Winston. HISTORY OF PRESENT ILLNESS: The patient is a 38-year-old female with past medical history of impaired fasting glucose, alcohol abuse, and recurrent pancreatitis, presenting with increased abdominal pain consistent with recurrent pancreatitis. She states that she was in her usual state of health until approximately 2 days ago when she experienced the acute onset of increased midepigastric abdominal pain characterized as a sharp/dull type sensation, would radiate to her mid back, it is constant and reaches a severity of 9/10. This abdominal pain is associated with increased nausea and vomiting with nonbloody emesis, cold sweats, and mild itching over the entirety of her body. When compared to her prior episodes of pancreatitis, it is in the same location and same similar character, but the severity is worse during this particular episode. Upon further questioning the patient, she had been drinking heavily 24 hours prior to the onset of her symptoms, drinking approximately 4 to 5 shots of rum during that time. Currently, denies any fevers, chills, hematemesis, melena, hematochezia, diarrhea, or constipation. REVIEW OF SYSTEMS: A 10-category review of systems was obtained with all responses negative, except for the pertinent positives as listed in the HPI. PAST MEDICAL HISTORY: As per HPI. PAST SURGICAL HISTORY: Bilateral tubal ligation. FAMILY HISTORY: Denies any GI malignancies. SOCIAL HISTORY: She smokes a half pack to one-half pack per day. She also endorses drinking alcohol on a daily basis, but does have binge drinking episodes occasionally. She currently denies any illicit substance use. OUTPATIENT MEDICATIONS: None. ALLERGIES: DEMEROL, LATEX, PENICILLIN, STADOL, AND TORADOL. PHYSICAL EXAMINATION: VITAL SIGNS: Temperature 98.6, pulse 78, blood pressure 112/75, respiratory rate 20, and saturating 96% on room air. GENERAL: The patient was lying in bed, in mild distress, alert and oriented x4. HEENT: Normocephalic and atraumatic. No scleral icterus or JVD noted. CARDIOVASCULAR: Regular rate and rhythm with no discernible murmurs, gallops, or rubs. RESPIRATORY: Clear to auscultation bilaterally with no discernible wheezes or rales. ABDOMEN: Normoactive bowel sounds. Soft, nondistended. Tenderness to palpation in the right upper quadrant and midepigastric regions. EXTREMITIES: No cyanosis, clubbing, or edema. LABORATORY DATA: CBC with a white blood cell count of 9.2, hemoglobin 12.8, hematocrit 38.5, and platelets 69. INR 1.4. Chemistry with a sodium of 133, potassium 3.7, chloride 100, CO2 of 22, BUN 6, creatinine 0.57, and glucose 63. AST 1835, ALT 624, and alkaline phosphatase 62. Total bilirubin 1.7. Albumin 3.3, lipase 213. IMAGING DATA: Right upper quadrant ultrasound was obtained on 12/22/2018, which showed coarsened echotexture of the liver with the common bile duct measuring 3 to 4 mm in diameter, but without the presence of ascites. A CT of the abdomen and pelvis was obtained on 12/23/2018, which showed diffuse enlargement of the pancreas with homogeneous enhancement and peripancreatic fluid collections. Also seen was diffuse fatty infiltration of the liver. ASSESSMENT AND PLAN: The patient is a 38-year-old female with past medical history of impaired fasting glucose, alcohol abuse, and recurrent pancreatitis, presenting with a recurrent episode of pancreatitis with possible alcoholic hepatitis. 1. Acute episode of recurrent pancreatitis. The patient is presenting with relatively acute onset of midepigastric/right upper quadrant abdominal pain characterized as a sharp/dull sensation, it is constant with waxing/waning severity and reaches a severity of 9/10. When compared to her prior episodes of pancreatitis, they are similar in location and character, but are increased in severity during this hospitalization. Given her recent episode of binge drinking approximately 4 to 5 shots 24 hours prior to the onset of symptoms, the alcohol consumed during that episode is more likely caused her recurrent pancreatitis. Based on the CT scan findings, there seems to be circumferential edema within the pancreas itself again consistent with pancreatitis without the presence of necrosis, but there may be evidence of peripancreatic fluid collections. At this point, it is unclear per the read if this is a pseudocyst formation or edema surrounding the pancreas from the inflammation self. At this time, given the onset of symptoms within 24 hours, placement on aggressive IV fluid resuscitation is indicated as part of treatment for her pancreatitis. Recommendations;. a. We would increase the fluid to 250 mL/h for the next 5 to 6 hours, then decrease to 150 mL/h with a goal of decreasing her BUN (this would indicate good response to treatment). b. We would continue the patient on n.p.o. status given her increased midepigastric abdominal pain; however, we would consider starting the patient on slow enteral diet within the next 24 to 48 hours. c. Pain control per Primary Team, but we will consider placing the patient on a NURSING PROGRAM COORDINATOR pump for pain control. 2. Possible alcoholic hepatitis. At this point, the patient is presenting with an episode of recurrent pancreatitis, but is having significantly elevated transaminases characterized as an AST of 1835 and an ALT of 624, indicating primarily a hepatocellular process. Given her recent episode of binge drinking and history of chronic alcohol abuse. This could be indicative of alcoholic hepatitis. However, it is not accompanied with fever or an elevated white count that can sometimes be seen with alcoholic hepatitis. At this time, the elevation of her liver enzymes seem to be more related to the significant inflammation surrounding her pancreatitis and extension as a result. Placement of the patient on steroids would be ill-advised at this time given increased risk of infection with acute pancreatitis and lack of study showing improvement at 90 days post hospital discharge for alcoholic hepatitis. Recommendations;. a. We would continue with conservative management as above for acute pancreatitis. b. We would hold off on any steroid administration at this time for alcoholic hepatitis. c. We would trend INR daily and total bilirubin daily for signs of hepatic dysfunction. We will continue to follow. Please call with any questions. Job ID: [id number]
[2018-12-24] MEDS: HYDROcodone/Acetaminophen 5/325 mg Tablet PO PRN ×2 (02:54→09:07)
[2018-12-24] MEDS: Sodium Chloride 0.9% 1,000 ML IV SCH (03:39)
[2018-12-24 06:01] LABS: ALT (SGPT) 831 U/L (8-55); AST (SGOT) 1796 U/L (5-34); Albumin 3.1 g/dL (3.5-5.0); Alkaline Phosphatase 49 U/L (40-150); Anion Gap 14 mmol/L (10-20); BUN (Urea Nitrogen) Less than 4 mg/dL (7.0-18.7); Bilirubin, Total 1.1 mg/dL (0.2-1.2); Calc. Creatinine Clearance 117 mL/min (70-130); Calcium 7.5 mg/dL (7.8-10.44); Carbon Dioxide 16 mmol/L (22-29); Chloride 107 mmol/L (98-107); Estimated GFR-MDRD Greater than 90; Globulin 2.3 g/dL (2.4-3.5); Lipase 501 U/L (8-78); Magnesium 1.7 mg/dL (1.6-2.6); Protein, Total 5.4 g/dL (6.0-8.3); Sodium 133 mmol/L (136-145)
[2018-12-24 06:04] LABS: Glucose 56 mg/dL (70-105)
[2018-12-24] MEDS ORDERED: Dextrose 50% Abboject 50 ML SYRINGE SLOW IVP SCH (06:30)
[2018-12-24] MEDS: Dextrose 5 % And 0.9 % NaCl 1,000 ML IV SCH ×2 (06:34→13:30)
[2018-12-24] MEDS: Morphine 2 MG/ML SYRINGE SLOW IVP PRN ×2 (06:34→10:52)
[2018-12-24] MEDS: Ondansetron PF 4 MG/2 ML Vial SLOW IVP PRN (09:07)
[2018-12-24] MEDS: Nicotine 21 MG PATCH TD SCH (10:54)
[2018-12-24] MEDS ORDERED: diphenhydrAMINE 50 MG/ML VIAL IM/IV PRN (11:30)
[2018-12-24] MEDS ORDERED: Promethazine HCl 25 MG/ML VIAL IM PRN (11:30)
[2018-12-24] MEDS ORDERED: Zolpidem Tartrate 5 MG TAB PO PRN (11:30)
[2018-12-24] MEDS ORDERED: diphenhydrAMINE 25 MG CAP PO PRN (11:30)
[2018-12-24] MEDS ORDERED: Naloxone HCl 0.4 mg/ml Vial IV PRN (11:30)
[2018-12-24 12:08] LABS: #Eosinphils 0.1 thou/uL (0.0-0.7); #Lymphocytes 0.5 thou/uL (1.20-3.40); #Monocytes 0.8 thou/uL (0.11-0.59); #Neutrophils 4.7 thou/uL (1.40-6.50); %Basophils 0.3 % (0.0-1.0); %Eosinophils 1.8 % (0.0-10.0); %Lymphocytes 8.5 % (21.0-51.0); %Monocytes 13.2 % (0.0-10.0); %Neutrophils 76.2 % (42.0-75.0); Hemoglobin 12.1 g/dL (12.0-16.0); Mean Corpuscular HGB CONC 33.4 g/dL (32.0-36.0); Mean Corpuscular Hemoglobin 36.4 pg (27.0-31.0); Mean Platelet Volume 9.1 fL (7.4-10.4); Platelet Count 80 thou/uL (130-400); RBC Distribution Width 11.7 % (11.5-14.5); Red Blood Cell (RBC) Count 3.33 mill/uL (4.20-5.40); White Blood Cell (WBC) Count 6.1 thou/uL (4.8-10.8)
[2018-12-24 12:12] LABS: INR-International Normal Ratio 1.2
[2018-12-24] MEDS: fentaNYL Citrate/PF 2,000 MCG in Sodium Chloride 0.9% 60 ML IV PRN (12:19)
--- NOTE | 2018-12-24 13:10 | PDOC.PN ---
- Subjective Encounter Start Date: 12/24/18 Encounter Start Time: 13:08 Subjective: feels worse, c/o abd pain -04/03.no N/V/D - Objective MAR Reviewed: Yes Vital Signs & Weight: Vital Signs (12 hours) Temp Pulse Resp BP BP Pulse Ox 12/24/18 12:00 123/78 12/24/18 11:30 97.7 F 81 14 123/78 98 12/24/18 08:00 97.7 F 77 16 113/74 113/74 98 12/24/18 04:00 98.3 F 68 20 112/76 98 Weight Weight 128 lb 1 oz I&O: 12/23/18 12/24/18 12/25/18 06:59 06:59 06:59 Intake Total 2457 2450 Balance 2457 2450 Result Diagrams: 12/24/18 11:41 12/24/18 04:51 Additional Labs: Accuchecks 12/24/18 12/24/18 12:16 07:41 POC Glucose 133 H 155 H Laboratory Tests 12/22/18 12/22/18 12/23/18 00:34 00:34 06:05 Magnesium 1.0 L 1.5 L Total Bilirubin 1.2 1.7 H AST 651 H 1835 H ALT 228 H 624 H Lipase 187 H 213 H 12/24/18 04:51 Magnesium 1.7 Total Bilirubin 1.1 AST 1796 H ALT 831 H Lipase 501 H Phys Exam - Physical Examination Constitutional: NAD HEENT: PERRLA, moist MMs, sclera anicteric, oral pharynx no lesions Neck: no nodes, no JVD, supple, full ROM Respiratory: no wheezing, no rales, no rhonchi Cardiovascular: RRR, no significant murmur TTP Musculoskeletal: no edema, pulses present Neurological: non-focal, normal sensation, moves all 4 limbs Psychiatric: normal affect, A&O x 3 Skin: no rash Dx/Plan (1) Acute alcoholic hepatitis Code(s): K70.10 - ALCOHOLIC HEPATITIS WITHOUT ASCITES Status: Acute Comment : LFT worsening (2) Acute alcoholic pancreatitis Code(s): K85.20 - ALCOHOL INDUCED ACUTE PANCREATITIS WITHOUT NECROSIS OR INFCT Status: Acute Comment: Lipase worse today again (3) Alcohol abuse Code(s): F10.10 - ALCOHOL ABUSE, UNCOMPLICATED Status: Chronic Comment: continue ASE protocol (4) Hyponatremia Code(s): E87.1 - HYPO-OSMOLALITY AND HYPONATREMIA Status: Chronic (5) Tobacco abuse Code(s): Z72.0 - TOBACCO USE Status: Chronic - Plan DVT proph w/SCDs Cont NPO,IVF.clinically stable -: 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 -: am labs.replace and recheck lytes * . Review of Systems - Review of Systems Constitutional: weakness, malaise. negative: fever, chills, sweats, other Cardiovascular: negative: chest pain, palpitations, orthopnea, paroxysmal nocturnal dyspnea, edema, light headedness, other Gastrointestinal: Abdominal Pain. negative: Nausea, Vomiting, Diarrhea, Constipation, Melena, Hematochezia, Other Genitourinary: negative: Dysuria, Frequency, Incontinence, Hematuria, Retention , Other Musculoskeletal: negative: Neck Pain, Shoulder Pain, Arm Pain, Back Pain, Hand Pain, Leg Pain, Foot Pain, Other Skin: negative: Rash, Lesions, Andrew, Bruising, Other Neurological: negative: Weakness, Numbness, Incoordination, Change in Speech, Confusion, Seizures, Other - Medications/Allergies Allergies/Adverse Reactions: Allergies Allergy/AdvReac Type Severity Reaction Status Date / Time butorphanol tartrate Allergy Rash Verified 06/05/18 22:38 [From Stadol] ketorolac tromethamine Allergy Rash Verified 06/05/18 22:38 [From Toradol] latex Allergy Rash Verified 06/05/18 22:38 meperidine HCl [From Demerol] Allergy Rash Verified 06/05/18 22:38 Penicillins Allergy Rash Verified 06/05/18 22:38 promethazine HCl Allergy Rash Verified 06/05/18 22:38 [From Phenergan] Medications: Current Medications Diphenhydramine HCl (Benadryl) 25 mg IM/IV Q3H PRN PRN Reason: Itching Diphenhydramine HCl (Benadryl) 25 mg PO Q3H PRN PRN Reason: Itching Hydralazine HCl (Apresoline) 10 mg SLOW IVP Q4H PRN PRN Reason: SBP > 170 and HR < 70 Dextrose/Sodium Chloride (D5 0.9% Ns) 1,000 mls @ 150 mls/hr IV .Q6H40M [facility] Last Admin: 12/24/18 06:34 Dose: 1,000 mls Fentanyl Citrate 2,000 mcg/ (Sodium Chloride) 100 mls @ 0 mls/hr IV INF PRN PRN Reason: Pain Last Admin: 12/24/18 12:19 Dose: 100 mls Naloxone HCl (Narcan) 0.2 mg IV Q5MIN PRN PRN Reason: RR <8 or pt obtun/unarousable Nicotine (Nicoderm Patch) 21 mg TD DAILY [facility] Last Admin: 12/24/18 10:54 Dose: 21 mg Nitroglycerin (Nitrostat) 0.4 mg SL Q5MIN PRN PRN Reason: Chest Pain Ondansetron HCl (Zofran) 4 mg IVP Q6H PRN PRN Reason: Nausea/Vomiting Promethazine HCl (Phenergan) 12.5 mg IM Q4H PRN PRN Reason: Nausea/Vomiting Sodium Chloride (Flush - Normal Saline) 10 ml IVF Q12HR [facility] Last Admin: 12/24/18 09:17 Dose: Not Given Sodium Chloride (Flush - Normal Saline) 10 ml IVF PRN PRN PRN Reason: Saline Flush Zolpidem Tartrate (Ambien) 5 mg PO HSPRN PRN PRN Reason: Insomnia
[2018-12-24] MEDS ORDERED: Pantoprazole 40 MG VIAL IVP SCH (19:30)
[2018-12-24] MEDS: Multivitamins, Adult 10 ML, Folic Acid 1 MG, Thiamine HCl 100 MG in Dextrose 5 %-0.45 %... IV SCH (19:58)
[2018-12-24] MEDS: Lorazepam 2 MG/ML VIAL SLOW IVP PRN (22:06)
[2018-12-25] MEDS: fentaNYL Citrate/PF 2,000 MCG in Sodium Chloride 0.9% 60 ML IV PRN (05:19)
[2018-12-25] MEDS: Dextrose 5 % And 0.9 % NaCl 1,000 ML IV SCH ×4 (05:21→20:57)
[2018-12-25] MEDS: Ondansetron PF 4 MG/2 ML Vial IVP PRN ×2 (06:44→14:17)
[2018-12-25 07:17] LABS: Hemoglobin 12.8 g/dL (12.0-16.0); Mean Corpuscular HGB CONC 33.6 g/dL (32.0-36.0); Mean Platelet Volume 8.7 fL (7.4-10.4); Platelet Count 101 thou/uL (130-400); RBC Distribution Width 11.7 % (11.5-14.5); Red Blood Cell (RBC) Count 3.55 mill/uL (4.20-5.40); White Blood Cell (WBC) Count 7.1 thou/uL (4.8-10.8)
[2018-12-25 07:18] LABS: Prothrombin Time 13.4 SEC (12.0-14.7)
[2018-12-25 07:36] LABS: ALT (SGPT) 603 U/L (8-55); AST (SGOT) 462 U/L (5-34); Acetaminophen Less than 6.0 mcg/mL (10.0-30.0); Albumin 3.4 g/dL (3.5-5.0); Alkaline Phosphatase 52 U/L (40-150); Anion Gap 11 mmol/L (10-20); BUN (Urea Nitrogen) Less than 4 mg/dL (7.0-18.7); Bilirubin, Total 1.1 mg/dL (0.2-1.2); Calc. Creatinine Clearance 130 mL/min (70-130); Calcium 8.5 mg/dL (7.8-10.44); Carbon Dioxide 24 mmol/L (22-29); Chloride 100 mmol/L (98-107); Estimated GFR-MDRD Greater than 90; Globulin 2.6 g/dL (2.4-3.5); Glucose 131 mg/dL (70-105); Lipase 155 U/L (8-78); Potassium 3.1 mmol/L (3.5-5.1); Sodium 132 mmol/L (136-145)
[2018-12-25 07:58] LABS: HBCM Index 0.15 S/CO (0-0.79); HBSAg Index 0.29 S/CO (0-0.99); Hep A IgM AB Non-Reactive (NonReactive); Hep A IgM S/CO 0.27 S/CO (0-0.79); Hep B Surf Ag Non-Reactive S/CO (NonReactive); Hep C IgG Ab Non-Reactive (NonReactive); Hepatitis B Core IgM Abs Non-Reactive (NonReactive)
[2018-12-25 08:01] LABS: Band 11 % (5-11); Eosinophils 6 % (0-10); Lymphocytes 11 % (21-51); MDiff Complete? YES; Macrocytosis SLIGHT = 6-15 cells (100X) (0-5/hpf); Monocytes 14 % (0-10); Neutrophil 54 % (42-75); Platelet Morphology Comment Appears Decreased; Reactive Lymphocytes 3 % (0-10)
--- NOTE | 2018-12-25 08:06 | PRG ---
DATE OF SERVICE: 12/24/2018 SUBJECTIVE: Ms. Barr states her pain is thought to be out of proportion. She is still on pain pump. She is receiving IV fluids. She says she is hungry, wants to start liquids. MEDICATIONS: 1. D5 normal at 150. 2. Benadryl. 3. Fentanyl. 4. PHOTOGRAPHY INTERN. 5. Apresoline. 6. NicoDerm patch. 7. Zofran. 8. Phenergan p.r.n. 9. Zolpidem. 10. Ambien at bedtime. OBJECTIVE: VITAL SIGNS: Temperature 97.4, blood pressure 145/85, respirations 12. LUNGS: Clear. HEART: Regular rate and rhythm without clicks or murmurs. ABDOMEN: Soft, mildly tender in the epigastrium. There is no rebound. There is no guarding. NEUROLOGIC: The patient seems in no distress. EXTREMITIES: No clubbing, cyanosis, or edema. ASSESSMENT: 1. Recurrent pancreatitis, felt to be alcohol related. 2. Started drinking last Monday. 3. Did take six Tylen[address] on Monday. CT did show diffuse enlargement of pancreas, homogeneous enhancement, peripancreatic fluid collections, diffuse fatty liver,3 to 4 mm bile duct. Ultrasound showed no gallstones. LABORATORY DATA: White count 6, hemoglobin 12, platelet count 80, MCV 109. INR 1.2. Glucose 63 to 56, sodium 133, potassium 4, BUN and creatinine are less than 4 and 0.6, magnesium 1.7, phosphorus was 2.5 yesterday, calcium is 7.5. AST and ALT are 1796 and 831 from 651 and 228 on the . Albumin is 3.2. Lipase is 501 from 213 yesterday. Bilirubin was 1.1 today. Alkaline phosphatase normal at 49. ASSESSMENT: 1. Acute pancreatitis. 2. Liver numbers are mildly elevated. She may have acute on chronic disease. 3. Macrocytosis likely related to alcohol abuse or cirrhosis. 4. Thrombocytopenia(back in 2016) likely related to alcohol toxicity or portal hypertension. 5. Pancreatitis, mild elevation; there were some pancreatic changes on CT. 6. AST and ALT are elevated out of proportion, what one would expect from just alcohol abuse;one wonders about toxicity. She did take six Tylenol on . If she is not improving, then we may consider adding Mucomyst, we did order Tylenol level, get acute hepatitis serologies and ALTON as well. She is in no distress at this time, she has no signs of liver failure, coagulopathy, or encephalopathy. We would add multivitamin, thiamine, and folate to her regimen. Job ID: [id number]
[2018-12-25] MEDS: Pantoprazole 40 MG VIAL IVP SCH (09:25)
[2018-12-25] MEDS: Nicotine 21 MG PATCH TD SCH (09:25)
[2018-12-25 11:03] LABS: ANA Symphony (Qualitative) Negative (Negative); ANA Symphony (Quantitative) 0.1 Ratio (< 0.7 Negative); dsDNA IgG Antibody Less than 0.5 IU/mL (<10 Negative)
--- NOTE | 2018-12-25 11:54 | PDOC.PN ---
- Subjective Encounter Start Date: 12/25/18 Encounter Start Time: 11:53 Subjective: feels better w abd pain but had vivid hallucinations -: no jitteriness or 'shakes' - Objective MAR Reviewed: Yes Vital Signs & Weight: Vital Signs (12 hours) Temp Pulse Resp BP BP Pulse Ox 12/25/18 11:42 98.7 F 87 20 141/93 H 100 12/25/18 08:00 98.1 F 96 18 157/97 H 98 12/25/18 04:15 98.0 F 82 20 142/89 H 99 12/25/18 04:00 142/89 H 12/25/18 00:22 98.1 F 108 H 20 148/97 H 100 12/25/18 00:00 148/97 H Weight Weight 128 lb 1 oz I&O: 12/24/18 12/25/18 12/26/18 06:59 06:59 06:59 Intake Total 2450 1845 Balance 2450 1845 Result Diagrams: 12/25/18 06:44 12/25/18 06:44 Additional Labs: Accuchecks 12/25/18 12/24/18 12/24/18 05:34 18:53 12:16 POC Glucose 126 H 126 H 133 H Laboratory Tests 12/22/18 12/23/18 12/24/18 00:34 06:05 04:51 Total Bilirubin 1.2 1.7 H 1.1 AST 651 H 1835 H 1796 H ALT 228 H 831 H Alkaline Phosphatase 74 49 Lipase 187 H 213 H 501 H Acetaminophen 12/25/18 06:44 Total Bilirubin 1.1 AST 462 H ALT 603 H Alkaline Phosphatase 52 Lipase 155 H Acetaminophen Less than 6.0 L Phys Exam - Physical Examination Constitutional: NAD HEENT: PERRLA, moist MMs, sclera anicteric, oral pharynx no lesions Neck: no nodes, no JVD, supple, full ROM Respiratory: no wheezing, no rales, no rhonchi, clear to auscultation bilateral Cardiovascular: RRR, no significant murmur Gastrointestinal: soft, positive bowel sounds mildly TTP and distended Musculoskeletal: no edema, pulses present Neurological: non-focal, normal sensation, moves all 4 limbs Psychiatric: normal affect, A&O x 3 Skin: no rash Dx/Plan (1) Acute alcoholic hepatitis Code(s): K70.10 - ALCOHOLIC HEPATITIS WITHOUT ASCITES Status: Acute Comment : LFT better today (2) Acute alcoholic pancreatitis Code(s): K85.20 - ALCOHOL INDUCED ACUTE PANCREATITIS WITHOUT NECROSIS OR INFCT Status: Acute Comment: Lipase better today (3) Alcohol abuse Code(s): F10.10 - ALCOHOL ABUSE, UNCOMPLICATED Status: Chronic Comment: continue ASE protocol (4) Hyponatremia Code(s): E87.1 - HYPO-OSMOLALITY AND HYPONATREMIA Status: Chronic (5) Tobacco abuse Code(s): Z72.0 - TOBACCO USE Status: Chronic - Plan incentive spirometry, DVT proph w/SCDs clinically better in terms of pancreatitis but now w ETOH withdrawl -: cont ASE protocol and prn Ativan.check ammonia -: cont to follow LFT,lipase. start CLD and monitor repsonse -: cont MV IV * . Review of Systems - Review of Systems Constitutional: weakness. negative: fever, chills, sweats, malaise, other Respiratory: negative: Cough, Dry, Shortness of Breath, Hemoptysis, SOB with Excertion, Pleuritic Pain, Sputum, Wheezing Gastrointestinal: Abdominal Pain, Constipation Genitourinary: negative: Dysuria, Frequency, Incontinence, Hematuria, Retention , Other Musculoskeletal: negative: Neck Pain, Shoulder Pain, Arm Pain, Back Pain, Hand Pain, Leg Pain, Foot Pain, Other Skin: negative: Rash, Lesions, Andrew, Bruising, Other Neurological: negative: Weakness, Numbness, Incoordination, Change in Speech, Confusion, Seizures, Other - Medications/Allergies Allergies/Adverse Reactions: Allergies Allergy/AdvReac Type Severity Reaction Status Date / Time butorphanol tartrate Allergy Rash Verified 06/05/18 22:38 [From Stadol] ketorolac tromethamine Allergy Rash Verified 06/05/18 22:38 [From Toradol] latex Allergy Rash Verified 06/05/18 22:38 meperidine HCl [From Demerol] Allergy Rash Verified 06/05/18 22:38 Penicillins Allergy Rash Verified 06/05/18 22:38 promethazine HCl Allergy Rash Verified 06/05/18 22:38 [From Phenergan] Medications: Current Medications Diphenhydramine HCl (Benadryl) 25 mg IM/IV Q3H PRN PRN Reason: Itching Diphenhydramine HCl (Benadryl) 25 mg PO Q3H PRN PRN Reason: Itching Hydralazine HCl (Apresoline) 10 mg SLOW IVP Q4H PRN PRN Reason: SBP > 170 and HR < 70 Dextrose/Sodium Chloride (D5 0.9% Ns) 1,000 mls @ 150 mls/hr IV .Q6H40M [facility] Last Admin: 12/25/18 06:44 Dose: 1,000 mls Fentanyl Citrate 2,000 mcg/ (Sodium Chloride) 100 mls @ 0 mls/hr IV INF PRN PRN Reason: Pain Last Admin: 12/25/18 05:19 Dose: 100 mls Multivitamins 10 ml/ Folic Acid 1 mg/ Thiamine HCl 100 mg / Dextrose/Sodium Chloride 1,011.2 mls @ 100 mls/hr IV Q24HR [facility] Stop: 12/31/18 20:01 Last Admin: 12/24/18 19:58 Dose: 1,011.2 mls Lorazepam (Ativan) 1 mg SLOW IVP Q4H PRN PRN Reason: Anxiety/Agitation Last Admin: 12/24/18 22:06 Dose: 1 mg Naloxone HCl (Narcan) 0.2 mg IV Q5MIN PRN PRN Reason: RR <8 or pt obtun/unarousable Nicotine (Nicoderm Patch) 21 mg TD DAILY [facility] Last Admin: 12/25/18 09:25 Dose: 21 mg Nitroglycerin (Nitrostat) 0.4 mg SL Q5MIN PRN PRN Reason: Chest Pain Ondansetron HCl (Zofran) 4 mg IVP Q6H PRN PRN Reason: Nausea/Vomiting Last Admin: 12/25/18 06:44 Dose: 4 mg Pantoprazole Sodium (Protonix) 40 mg IVP DAILY [facility] Last Admin: 12/25/18 09:25 Dose: 40 mg Promethazine HCl (Phenergan) 12.5 mg IM Q4H PRN PRN Reason: Nausea/Vomiting Sodium Chloride (Flush - Normal Saline) 10 ml IVF Q12HR [facility] Last Admin: 12/25/18 09:26 Dose: 10 ml Sodium Chloride (Flush - Normal Saline) 10 ml IVF PRN PRN PRN Reason: Saline Flush Zolpidem Tartrate (Ambien) 5 mg PO HSPRN PRN PRN Reason: Insomnia
--- NOTE | 2018-12-25 18:26 | PRG ---
DATE OF SERVICE: 12/25/2018 SUBJECTIVE: Ms. Barr says her abdominal pain is a bit improved overall, but still quite bothersome. She has been on a fentanyl ECHO TECHNOLOGIST today. She tried some Jell-O earlier, but that made the abdominal pain worse, so she has backed off to n.p.o. status again. LFTs and lipase are improving. PHYSICAL EXAMINATION: VITAL SIGNS: Temperature 98.1, blood pressure 143/98, pulse 94, 97% oxygen saturation on room air. GENERAL: In no acute distress, sitting up in bed comfortably. HEART: Regular rate and rhythm. LUNGS: Clear to auscultation bilaterally. ABDOMEN: Bowel sounds hypoactive, but present, soft. Generalized tenderness to palpation. EXTREMITIES: No peripheral edema. LABORATORY STUDIES: INR is normal at 1.0. WBC 7.1, hemoglobin 12.8, platelets 101. Sodium 132, potassium 3.1, BUN less than 4, creatinine 0.54. Total bilirubin is normalized to 1.1, alkaline phosphatase improved to 52, AST improved to 462, ALT improved to 603. Lipase improved to 155. Acetaminophen level is less than 6. Urinalysis negative. ALTON negative. Viral hepatitis panel is all negative as well. ASSESSMENT AND PLAN: 1. Acute recurrent pancreatitis, secondary to alcohol. 2. Elevated LFTs, also appears secondary to mild acute alcoholic hepatitis. I discussed with the patient that her lab parameters are all favorable today. LFTs and lipase decreasing in a linear fashion over the past couple of days. She has been well resuscitated with good renal function, stable hematocrit. Clinically, she has not made much improvement yet and is requiring fentanyl ECHO TECHNOLOGIST. Note that on her last admission for acute uncomplicated pancreatitis, she had very significant pain medication requirements, really out of proportion to physical findings. At any rate, with such significant pain medication requirement ongoing, would recommend continued n.p.o. status overnight. If pain requirement has lessened tomorrow, could potentially try clear liquids again tomorrow. 3. I again emphasized with her the need to maintain strict abstinence from alcohol going forward. She feels quite motivated to do this. Job ID: [id number]
[2018-12-25] MEDS: Lorazepam 2 MG/ML VIAL SLOW IVP PRN (20:51)
[2018-12-25] MEDS: Multivitamins, Adult 10 ML, Folic Acid 1 MG, Thiamine HCl 100 MG in Dextrose 5 %-0.45 %... IV SCH (20:51)
[2018-12-25] MEDS: Bisacodyl 5 MG TAB PO PRN (20:56)
[2018-12-25] MEDS: Docusate 100 MG CAP PO PRN (20:56)
[2018-12-26] MEDS: Dextrose 5 % And 0.9 % NaCl 1,000 ML IV SCH ×4 (02:25→19:56)
[2018-12-26] MEDS: fentaNYL Citrate/PF 2,000 MCG in Sodium Chloride 0.9% 60 ML IV PRN (03:44)
[2018-12-26 06:38] LABS: ALT (SGPT) 405 U/L (8-55); AST (SGOT) 146 U/L (5-34); Albumin 3.3 g/dL (3.5-5.0); Alkaline Phosphatase 50 U/L (40-150); Anion Gap 10 mmol/L (10-20); BUN (Urea Nitrogen) Less than 4 mg/dL (7.0-18.7); Calc. Creatinine Clearance 137 mL/min (70-130); Calcium 8.9 mg/dL (7.8-10.44); Carbon Dioxide 28 mmol/L (22-29); Chloride 99 mmol/L (98-107); Estimated GFR-MDRD Greater than 90; Globulin 2.8 g/dL (2.4-3.5); Glucose 126 mg/dL (70-105); Lipase 144 U/L (8-78); Potassium 3.1 mmol/L (3.5-5.1); Protein, Total 6.1 g/dL (6.0-8.3); Sodium 134 mmol/L (136-145)
[2018-12-26] MEDS: Nicotine 21 MG PATCH TD SCH (09:30)
[2018-12-26] MEDS: Pantoprazole 40 MG VIAL IVP SCH (09:30)
[2018-12-26] MEDS: Docusate 100 MG CAP PO PRN (10:39)
--- NOTE | 2018-12-26 17:47 | PDOC.PN ---
- Subjective Encounter Start Date: 12/26/18 Encounter Start Time: 17:40 Subjective: f/u for ETOH-induced pancreatitis/hepatitis on current Fentanyl PAIN MANAGEMENT SPECIALIST -: and Ativan. Still c/o abd pain with liquids. No emesis. - Objective MAR Reviewed: Yes Vital Signs & Weight: Vital Signs (12 hours) Temp Pulse Resp BP Pulse Ox 12/26/18 16:00 98.3 F 78 16 142/96 H 98 12/26/18 12:00 97.8 F 83 16 147/89 H 98 12/26/18 08:00 98.0 F 78 16 158/102 H 100 Weight Weight 128 lb 1 oz I&O: 12/25/18 12/26/18 12/27/18 06:59 06:59 06:59 Intake Total 3445 1600 Balance 3445 1600 Result Diagrams: 12/25/18 06:44 12/26/18 05:42 Additional Labs: Accuchecks 12/26/18 12/26/18 12/26/18 17:31 12:11 05:45 POC Glucose 135 H 155 H 125 H 12/26/18 12/25/18 00:47 18:17 POC Glucose 132 H 132 H Microbiology 11/26/17 13:48 Urine clean catch Urine Culture - Preliminary Gram Negative [facility] Laboratory Tests 11/26/17 11/26/17 12/22/18 13:33 13:48 00:34 Sodium Potassium Total Bilirubin AST ALT Lipase 117 H 187 H Urine Test Negative Hepatitis A IgM Ab Hep Bs Antigen Hep B Core IgM Ab Hepatitis C Antibody 12/23/18 12/24/18 12/25/18 06:05 04:51 06:44 Sodium 133 L 133 L 132 L Potassium 4.0 3.1 L Total Bilirubin AST 1835 H 1796 H 462 H ALT 624 H 831 H 603 H Lipase 213 H 501 H 155 H Urine Test Hepatitis A IgM Ab Hep Bs Antigen Hep B Core IgM Ab Hepatitis C Antibody 12/25/18 12/26/18 06:44 05:42 Sodium Potassium Total Bilirubin 1.0 AST 146 H ALT 405 H Lipase 144 H Urine Test Hepatitis A IgM Ab Non-Reactive Hep Bs Antigen Non-Reactive Hep B Core IgM Ab Non-Reactive Hepatitis C Antibody Non-Reactive Radiology Reviewed by me: Yes (CT abd/pel - diffuse fatty liver, pancreatitis, no cyst/abscess) Phys Exam - Physical Examination Constitutional: NAD HEENT: PERRLA, sclera anicteric, oral pharynx no lesions Neck: no nodes, no JVD, supple, full ROM Respiratory: no wheezing, no rales, no rhonchi, clear to auscultation bilateral S1, S2 Cardiovascular: RRR, no significant murmur, no rub, gallop mild TTP in mid-epigastric region Gastrointestinal: soft, no distention, positive bowel sounds Musculoskeletal: no edema, pulses present Neurological: normal sensation, moves all 4 limbs Psychiatric: A&O x 3 Skin: normal turgor, cap refill <2 seconds Dx/Plan (1) Acute alcoholic pancreatitis Code(s): K85.20 - ALCOHOL INDUCED ACUTE PANCREATITIS WITHOUT NECROSIS OR INFCT Status: Acute Comment: Enzymatically improving, wean off PAIN MANAGEMENT SPECIALIST, clear liquids (2) Acute alcoholic hepatitis Code(s): K70.10 - ALCOHOLIC HEPATITIS WITHOUT ASCITES Status: Acute Comment : Enzymatically improved, serial monitoring, avoid ETOH (3) Nausea & vomiting Code(s): R11.2 - NAUSEA WITH VOMITING, UNSPECIFIED Status: Acute Comment: Resolved, supportive mgmt, Zofran prn (4) Tobacco abuse Code(s): Z72.0 - TOBACCO USE Status: Chronic Comment: Smoking cessation resources (5) Hypokalemia Code(s): E87.6 - HYPOKALEMIA Status: Acute Comment: KCL supplementation, serial K+ monitoring (6) Hyponatremia Code(s): E87.1 - HYPO-OSMOLALITY AND HYPONATREMIA Status: Chronic Comment: Secondary to chronic ETOH abuse - 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
[2018-12-26] MEDS: Ondansetron PF 4 MG/2 ML Vial IVP PRN (18:19)
--- NOTE | 2018-12-26 18:29 | PRG ---
DATE OF SERVICE: 12/26/2018 SUBJECTIVE: Ms. Barr says her pain is more localized to the epigastrium today, though the intensity really has not improved from yesterday. Some nausea persists, but there has been no vomiting. She is tolerating clear liquids, but does not have an appetite. She continues to use the fentanyl AGRISCIENCE TEACHER. She has been otherwise stable. She complained of very transient rash earlier today, which is already improved. PHYSICAL EXAMINATION: VITAL SIGNS: Temperature 98.3, pulse 78, blood pressure 142/96, and 98% oxygen saturation on room air. GENERAL: No acute distress. HEART: Regular rate and rhythm. LUNGS: Clear to auscultation bilaterally. ABDOMEN: Bowel sounds are hypoactive, but present. Soft. Tender to palpation generally throughout the abdomen, but no guarding, rebound, or tenderness. EXTREMITIES: No peripheral edema. LABORATORY STUDIES: WBC 7.1, hemoglobin 12.8, and platelets are 101. INR 1.0. Sodium 134, potassium 3.1, BUN less than 4, creatinine 0.51, and glucose 135. AST down from 462 to 146, ALT down from 603 to 405, alkaline phosphatase is 50, and lipase is stable, mild elevation of 144. ASSESSMENT/PLAN: 1. Acute alcoholic pancreatitis, recurrent. 2. Elevated LFTs, secondary to mild acute alcoholic hepatitis, improved. I again discussed with the patient that her lab parameters all remain favorable and continue to improve. Her pain requirements are still considerable with the fentanyl AGRISCIENCE TEACHER, again out of proportion to physical findings. Agree with clear liquids as tolerated for now, would not really advance further until pain requirements have decreased. The patient is really going to need to maintain strict abstinence from alcohol going forward. Job ID: [id number]
[2018-12-26] MEDS: Multivitamins, Adult 10 ML, Folic Acid 1 MG, Thiamine HCl 100 MG in Dextrose 5 %-0.45 %... IV SCH (19:48)
[2018-12-26] MEDS: Lorazepam 2 MG/ML VIAL SLOW IVP PRN (20:49)
[2018-12-27] MEDS: Dextrose 5 % And 0.9 % NaCl 1,000 ML IV SCH ×4 (02:59→22:35)
[2018-12-27] MEDS: fentaNYL Citrate/PF 2,000 MCG in Sodium Chloride 0.9% 60 ML IV PRN (04:03)
[2018-12-27 05:19] LABS: ALT (SGPT) 267 U/L (8-55); AST (SGOT) 61 U/L (5-34); Albumin 3.3 g/dL (3.5-5.0); Alkaline Phosphatase 47 U/L (40-150); Anion Gap 10 mmol/L (10-20); BUN (Urea Nitrogen) Less than 4 mg/dL (7.0-18.7); Bilirubin, Total 0.9 mg/dL (0.2-1.2); Calc. Creatinine Clearance 125 mL/min (70-130); Calcium 8.8 mg/dL (7.8-10.44); Carbon Dioxide 30 mmol/L (22-29); Chloride 99 mmol/L (98-107); Estimated GFR-MDRD Greater than 90; Globulin 2.7 g/dL (2.4-3.5); Glucose 118 mg/dL (70-105); Lipase 159 U/L (8-78); Sodium 136 mmol/L (136-145)
[2018-12-27 05:26] LABS: Potassium 2.7 mmol/L (3.5-5.1)
[2018-12-27] MEDS: Potassium Chloride 20 MEQ TAB PO SCH ×3 (06:29→17:22)
[2018-12-27] MEDS: Bisacodyl 5 MG TAB PO PRN (06:31)
[2018-12-27] MEDS: Pantoprazole 40 MG VIAL IVP SCH (09:07)
[2018-12-27] MEDS: Nicotine 21 MG PATCH TD SCH (09:07)
--- NOTE | 2018-12-27 15:21 | PDOC.PN ---
- Subjective Encounter Start Date: 12/27/18 Encounter Start Time: 15:30 Subjective: f/u for acute ETOH-induced pancreatitis/hepatitis with slow clinical -: improvement receiving Fentanyl THERMODYNAMICS TEACHER and IVF's. Some recurrent abd pain -: and nausea with clear liquids. - Objective MAR Reviewed: Yes Vital Signs & Weight: Vital Signs (12 hours) Temp Pulse Resp BP BP BP Pulse Ox 12/27/18 15:14 98.9 F 94 16 152/106 H 98 12/27/18 12:00 123/72 12/27/18 11:26 98.1 F 88 12 123/72 98 12/27/18 09:00 98.6 F 75 12 135/86 100 12/27/18 08:00 135/86 12/27/18 04:24 98.6 F 79 16 140/100 H 100 Weight Weight 128 lb 1 oz I&O: 12/26/18 12/27/18 12/28/18 06:59 06:59 06:59 Intake Total 3520 Balance 3520 Result Diagrams: 12/25/18 06:44 12/28/18 06:10 Additional Labs: Accuchecks 12/27/18 12/27/18 12/26/18 10:29 05:33 23:45 POC Glucose 123 H 118 H 114 H 12/26/18 17:31 POC Glucose 135 H Microbiology 11/26/17 13:48 Urine clean catch Urine Culture - Preliminary Gram Negative [facility] Laboratory Tests 11/26/17 11/26/17 12/22/18 13:33 13:48 00:34 Sodium Potassium Total Bilirubin AST ALT Lipase 117 H 187 H Urine Test Negative Hepatitis A IgM Ab Hep Bs Antigen Hep B Core IgM Ab Hepatitis C Antibody 12/23/18 12/24/18 12/25/18 06:05 04:51 06:44 Sodium 133 L 133 L 132 L Potassium 4.0 3.1 L Total Bilirubin AST 1835 H 1796 H 462 H ALT 624 H 831 H 603 H Lipase 213 H 501 H 155 H Urine Test Hepatitis A IgM Ab Hep Bs Antigen Hep B Core IgM Ab Hepatitis C Antibody 12/25/18 12/26/18 06:44 05:42 Sodium Potassium Total Bilirubin 1.0 AST 146 H ALT 405 H Lipase 144 H Urine Test Hepatitis A IgM Ab Non-Reactive Hep Bs Antigen Non-Reactive Hep B Core IgM Ab Non-Reactive Hepatitis C Antibody Non-Reactive Phys Exam - Physical Examination Constitutional: NAD HEENT: PERRLA, sclera anicteric, oral pharynx no lesions Neck: no nodes, no JVD, supple, full ROM Respiratory: no wheezing, no rales, no rhonchi, clear to auscultation bilateral S1, S2 Cardiovascular: RRR, no significant murmur, no rub, gallop mild TTP in mid-epigastric region Gastrointestinal: soft, no distention, positive bowel sounds Musculoskeletal: no edema, pulses present Neurological: normal sensation, moves all 4 limbs Psychiatric: A&O x 3 Skin: normal turgor, cap refill <2 seconds Dx/Plan (1) Acute alcoholic pancreatitis Code(s): K85.20 - ALCOHOL INDUCED ACUTE PANCREATITIS WITHOUT NECROSIS OR INFCT Status: Acute Comment: Enzymatically improving, wean off THERMODYNAMICS TEACHER, clear liquids (2) Acute alcoholic hepatitis Code(s): K70.10 - ALCOHOLIC HEPATITIS WITHOUT ASCITES Status: Acute Comment : Enzymatically improved, serial monitoring, avoid ETOH (3) Nausea & vomiting Code(s): R11.2 - NAUSEA WITH VOMITING, UNSPECIFIED Status: Acute Comment: Resolved, supportive mgmt, Zofran prn (4) Tobacco abuse Code(s): Z72.0 - TOBACCO USE Status: Chronic Comment: Smoking cessation resources (5) Hypokalemia Code(s): E87.6 - HYPOKALEMIA Status: Acute Comment: Persistent, continue KCL supplementation, serial K+ monitoring (6) Hyponatremia Code(s): E87.1 - HYPO-OSMOLALITY AND HYPONATREMIA Status: Chronic Comment: Secondary to chronic ETOH abuse - 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
--- NOTE | 2018-12-27 15:23 | PRG ---
DATE OF SERVICE: 12/27/2018 SUBJECTIVE: Ms. Barr reports no significant change from yesterday. She continues to utilize the fentanyl KITCHEN FOOD ASSEMBLER quite frequently. She has remained nauseated, though there has been no vomiting. No bowel movements yet to this point. She has remained clinically stable. OBJECTIVE: VITAL SIGNS: Temperature 98.1, pulse 88, blood pressure 123/72, and 98% oxygen saturation on room air. GENERAL: No acute distress. HEART: Regular rate and rhythm. LUNGS: Clear to auscultation bilaterally. ABDOMEN: Nondistended. Bowel sounds hypoactive, but present. Soft, tender to palpation in the epigastrium and periumbilical area. EXTREMITIES: No peripheral edema. LABORATORY STUDIES: Sodium 136, potassium 2.7, BUN less than 4, creatinine 0.56, glucose 123, total bilirubin 0.9, alkaline phosphatase 47, AST down to 61, ALT down to 267, lipase stable at 159. ASSESSMENT AND PLAN: 1. Acute pancreatitis, recurrent, secondary to alcohol abuse. 2. Elevated LFTs, secondary to mild acute alcoholic hepatitis, improved. LFTs continue to rapidly decline. Note the normal INR and normal creatinine. Her pain requirements still remain out of proportion to physical laboratory findings. I do not think we should advance her diet beyond clear liquids until her pain requirements have decreased. Again, she is going to need to completely stay away from all alcohol going forward. Job ID: [id number]
[2018-12-27] MEDS: Ondansetron PF 4 MG/2 ML Vial IVP PRN (15:53)
[2018-12-27] MEDS: Multivitamins, Adult 10 ML, Folic Acid 1 MG, Thiamine HCl 100 MG in Dextrose 5 %-0.45 %... IV SCH (20:33)
[2018-12-27] MEDS: Lorazepam 2 MG/ML VIAL SLOW IVP PRN (20:33)
[2018-12-28] MEDS: Dextrose 5 % And 0.9 % NaCl 1,000 ML IV SCH ×3 (03:31→16:00)
[2018-12-28] MEDS: fentaNYL Citrate/PF 2,000 MCG in Sodium Chloride 0.9% 60 ML IV PRN (03:40)
[2018-12-28 06:44] LABS: ALT (SGPT) 175 U/L (8-55); AST (SGOT) 36 U/L (5-34); Albumin 3.1 g/dL (3.5-5.0); Alkaline Phosphatase 38 U/L (40-150); Anion Gap 9 mmol/L (10-20); BUN (Urea Nitrogen) Less than 4 mg/dL (7.0-18.7); Bilirubin, Total 0.7 mg/dL (0.2-1.2); Calc. Creatinine Clearance 127 mL/min (70-130); Carbon Dioxide 27 mmol/L (22-29); Chloride 101 mmol/L (98-107); Estimated GFR-MDRD Greater than 90; Globulin 2.6 g/dL (2.4-3.5); Glucose 180 mg/dL (70-105); Lipase 91 U/L (8-78); Potassium 3.1 mmol/L (3.5-5.1); Protein, Total 5.7 g/dL (6.0-8.3); Sodium 134 mmol/L (136-145)
[2018-12-28] MEDS: Nicotine 21 MG PATCH TD SCH (08:49)
[2018-12-28] MEDS: Potassium Chloride 20 MEQ TAB PO SCH ×2 (08:49→16:17)
[2018-12-28] MEDS: Pantoprazole 40 MG VIAL IVP SCH (08:50)
[2018-12-28] MEDS: Docusate 100 MG CAP PO PRN (09:57)
[2018-12-28] MEDS: Bisacodyl 5 MG TAB PO PRN (09:58)
[2018-12-28] MEDS: Ondansetron PF 4 MG/2 ML Vial IVP PRN ×2 (12:08→20:20)
[2018-12-28] MEDS: HYDROcodone/Acetaminophen 10/325 mg Tablet PO PRN ×3 (12:09→20:19)
[2018-12-28] MEDS ORDERED: HYDROcodone/Acetaminophen 10/325 mg Tablet PO PRN (13:00)
--- NOTE | 2018-12-28 15:29 | PDOC.PN ---
- Subjective Encounter Start Date: 12/28/18 Encounter Start Time: 15:25 Subjective: f/u for ETOH-induced pancreatitis/hepatitis improving enzymatically. -: c/o some abd pain, taking clear liquids. Remains on Fentanyl HEAT TREATER HELPER but -: dosing decreased. No BM in 1 week. - Objective MAR Reviewed: Yes Vital Signs & Weight: Vital Signs (12 hours) Temp Pulse Resp BP BP Pulse Ox 12/28/18 12:00 153/93 H 12/28/18 11:45 98.3 F 74 12 153/93 H 99 12/28/18 08:06 98.1 F 74 14 133/86 98 12/28/18 08:00 133/86 12/28/18 04:00 98.4 F 84 20 136/93 H 137/88 100 Weight Admit Weight 128 lb 0.992 oz Weight 128 lb 0.992 oz I&O: 12/27/18 12/28/18 12/29/18 06:59 06:59 06:59 Intake Total 3520 3830 Balance 3520 3830 Result Diagrams: 12/25/18 06:44 12/28/18 06:10 Additional Labs: Accuchecks 12/28/18 12/28/18 12/28/18 12:23 06:16 00:23 POC Glucose 103 172 H 109 12/27/18 16:01 POC Glucose 118 H Phys Exam - Physical Examination Constitutional: NAD HEENT: PERRLA, sclera anicteric, oral pharynx no lesions Neck: no nodes, no JVD, supple, full ROM Respiratory: no wheezing, no rales, no rhonchi, clear to auscultation bilateral Cardiovascular: RRR, no significant murmur, no rub, gallop minimal TTP Gastrointestinal: soft, no distention, positive bowel sounds Musculoskeletal: no edema, pulses present Neurological: normal sensation, moves all 4 limbs Psychiatric: A&O x 3 Skin: normal turgor, cap refill <2 seconds Dx/Plan (1) Acute alcoholic pancreatitis Code(s): K85.20 - ALCOHOL INDUCED ACUTE PANCREATITIS WITHOUT NECROSIS OR INFCT Status: Acute Comment: Enzymatically improving, wean off HEAT TREATER HELPER, clear liquids , Ensure clear (2) Acute alcoholic hepatitis Code(s): K70.10 - ALCOHOLIC HEPATITIS WITHOUT ASCITES Status: Acute Comment : Enzymatically improved, serial monitoring, avoid ETOH (3) Nausea & vomiting Code(s): R11.2 - NAUSEA WITH VOMITING, UNSPECIFIED Status: Acute Comment: Resolved, supportive mgmt, Zofran prn (4) Tobacco abuse Code(s): Z72.0 - TOBACCO USE Status: Chronic Comment: Smoking cessation resources (5) Hypokalemia Code(s): E87.6 - HYPOKALEMIA Status: Acute Comment: Persistent, continue KCL supplementation, serial K+ monitoring (6) Hyponatremia Code(s): E87.1 - HYPO-OSMOLALITY AND HYPONATREMIA Status: Chronic Comment: Secondary to chronic ETOH abuse (7) Therapeutic opioid-induced constipation (OIC) Code(s): K59.03 - DRUG INDUCED CONSTIPATION; T40.2X5A - ADVERSE EFFECT OF OTHER OPIOIDS, INITIAL ENCOUNTER Status: Acute Comment: Start Movantik 12.5 mg po daily - Plan social contact worker, out of bed/ambulate Stable overall -: Wean off Fentanyl HEAT TREATER HELPER -: Trial Movantik 12.5mg po daily -: Ensure clear -: Likely home in 24h * AM lab: CMP, Lipase
--- NOTE | 2018-12-28 16:07 | PRG ---
DATE OF SERVICE: 12/28/2018 SUBJECTIVE: Ms. Barr reports no significant change. They are trying to wean down her fentanyl DORMITORY COUNSELOR. She does continue to have abdominal pain and nausea. She tried some crackers, but that did not go very well. She is tolerating water and juice. She has remained clinically stable. OBJECTIVE: VITAL SIGNS: Temperature 98.3, blood pressure 153/93, pulse 74, and 99% oxygen saturation on room air. GENERAL: No acute distress. HEART: Regular rate and rhythm. LUNGS: Clear to auscultation bilaterally. ABDOMEN: Bowel sounds hypoactive, but present. Soft. Some tenderness to palpation in the upper abdomen. EXTREMITIES: No peripheral edema. LABORATORY STUDIES: Sodium 134, potassium 3.1, BUN less than 4, creatinine 0.55, glucose 103, AST down to 36, ALT down to 175, alkaline phosphatase down to 38, lipase down to 91. ASSESSMENT AND PLAN: 1. Acute recurrent pancreatitis secondary to alcohol abuse. 2. Elevated liver function tests secondary to mild acute alcoholic hepatitis, improved. LFTs continue to decline, nearly normalized. I again discussed the importance of avoidance of all alcohol going forward. All of her laboratory parameters remain favorable, but she reports only minimal clinical improvement. Continue with supportive care and analgesics. We will keep her on clear liquid diet until pain requirements decreased. Job ID: [id number]
[2018-12-28] MEDS: Multivitamins, Adult 10 ML, Folic Acid 1 MG, Thiamine HCl 100 MG in Dextrose 5 %-0.45 %... IV SCH (19:44)
[2018-12-29] MEDS: HYDROcodone/Acetaminophen 10/325 mg Tablet PO PRN ×5 (00:07→18:46)
[2018-12-29 05:36] LABS: ALT (SGPT) 134 U/L (8-55); AST (SGOT) 28 U/L (5-34); Albumin 3.2 g/dL (3.5-5.0); Alkaline Phosphatase 43 U/L (40-150); Anion Gap 11 mmol/L (10-20); BUN (Urea Nitrogen) 6 mg/dL (7.0-18.7); Bilirubin, Total 0.6 mg/dL (0.2-1.2); Calc. Creatinine Clearance 127 mL/min (70-130); Calcium 9.5 mg/dL (7.8-10.44); Carbon Dioxide 25 mmol/L (22-29); Chloride 101 mmol/L (98-107); Estimated GFR-MDRD Greater than 90; Globulin 2.6 g/dL (2.4-3.5); Glucose 100 mg/dL (70-105); Lipase 73 U/L (8-78); Potassium 3.8 mmol/L (3.5-5.1); Protein, Total 5.8 g/dL (6.0-8.3); Sodium 133 mmol/L (136-145)
[2018-12-29] MEDS: Ondansetron PF 4 MG/2 ML Vial IVP PRN ×2 (09:08→14:39)
[2018-12-29] MEDS: Pantoprazole 40 MG VIAL IVP SCH (09:08)
[2018-12-29] MEDS: Nicotine 21 MG PATCH TD SCH (09:08)
[2018-12-29] MEDS: Potassium Chloride 20 MEQ TAB PO SCH ×2 (09:08→17:48)
[2018-12-29] MEDS ORDERED: Bisacodyl 10 MG SUPP PR SCH (15:30)
[2018-12-29] MEDS: fentaNYL Citrate/PF 2,000 MCG in Sodium Chloride 0.9% 60 ML IV PRN (16:30)
[2018-12-29] MEDS: Dextrose 5 % And 0.9 % NaCl 1,000 ML IV SCH (16:51)
--- NOTE | 2018-12-29 17:38 | PDOC.PN ---
- Subjective Encounter Start Date: 12/29/18 Encounter Start Time: 17:37 Subjective: Admitted with abdominal pain related to alcoholioc pancreatitis -: Still complaining of abdominal pain. -: only tolerating clears. No BM for about 7 days. - Objective Vital Signs & Weight: Vital Signs (12 hours) Temp Pulse Resp BP BP Pulse Ox 12/29/18 15:08 98.4 F 75 18 128/83 100 12/29/18 11:14 98.4 F 72 16 113/70 98 12/29/18 07:44 98.3 F 72 14 130/86 98 Weight Admit Weight 128 lb 0.992 oz Weight 128 lb 0.992 oz I&O: 12/28/18 12/29/18 12/30/18 06:59 06:59 06:59 Intake Total 3830 1920 Balance 3830 1920 Result Diagrams: 12/25/18 06:44 12/29/18 04:58 Additional Labs: Accuchecks 12/29/18 12/29/18 12/28/18 11:27 05:30 23:23 POC Glucose 112 H 116 H 193 H 12/28/18 18:14 POC Glucose 139 H Phys Exam - Physical Examination Constitutional: NAD HEENT: PERRLA, moist MMs Neck: no JVD, supple Respiratory: no wheezing, no rhonchi, clear to auscultation bilateral Cardiovascular: RRR, no significant murmur Gastrointestinal: soft, no distention epigastric and paraunbilical tenderness Musculoskeletal: no edema, pulses present Neurological: non-focal, moves all 4 limbs Psychiatric: A&O x 3 Dx/Plan (1) Acute alcoholic hepatitis Code(s): K70.10 - ALCOHOLIC HEPATITIS WITHOUT ASCITES Status: Acute Comment : Enzymatically improved, serial monitoring, avoid ETOH (2) Hypokalemia Code(s): E87.6 - HYPOKALEMIA Status: Acute Comment: Persistent, continue KCL supplementation, serial K+ monitoring (3) Therapeutic opioid-induced constipation (OIC) Code(s): K59.03 - DRUG INDUCED CONSTIPATION; T40.2X5A - ADVERSE EFFECT OF OTHER OPIOIDS, INITIAL ENCOUNTER Status: Acute Comment: Start Movantik 12.5 mg po daily (4) Tobacco abuse Code(s): Z72.0 - TOBACCO USE Status: Chronic Comment: Smoking cessation resources (5) Acute alcoholic pancreatitis Code(s): K85.20 - ALCOHOL INDUCED ACUTE PANCREATITIS WITHOUT NECROSIS OR INFCT Status: Acute Comment: Enzymatically improving, wean off LEARNING SUPPORT TEACHER, clear liquids , Ensure clear (6) Gastritis Code(s): K29.70 - GASTRITIS, UNSPECIFIED, WITHOUT BLEEDING Status: Acute Comment: on PPI (7) Alcohol abuse Code(s): F10.10 - ALCOHOL ABUSE, UNCOMPLICATED Status: Chronic Comment: continue ASE protocol (8) Hyponatremia Code(s): E87.1 - HYPO-OSMOLALITY AND HYPONATREMIA Status: Chronic Comment: Secondary to chronic ETOH abuse - Plan Dulcolax suppository x 1 -: Miralax bid. -: Continue clear liquid. diet advancement as per GI -: Continue analgesic as needed. On fentanyl LEARNING SUPPORT TEACHER -: anticipate weaning of LEARNING SUPPORT TEACHER soon. * .
[2018-12-29] MEDS: Multivitamins, Adult 10 ML, Folic Acid 1 MG, Thiamine HCl 100 MG in Dextrose 5 %-0.45 %... IV SCH (20:20)
[2018-12-29] MEDS: Lorazepam 2 MG/ML VIAL SLOW IVP PRN (20:24)
[2018-12-30] MEDS: HYDROcodone/Acetaminophen 10/325 mg Tablet PO PRN ×6 (00:28→21:05)
[2018-12-30] MEDS: Dextrose 5 % And 0.9 % NaCl 1,000 ML IV SCH (04:09)
[2018-12-30 05:03] LABS: #Basophils 0.1 thou/uL (0.0-0.2); #Eosinphils 0.1 thou/uL (0.0-0.7); #Lymphocytes 1.9 thou/uL (1.20-3.40); #Monocytes 1.2 thou/uL (0.11-0.59); #Neutrophils 5.6 thou/uL (1.40-6.50); %Basophils 0.7 % (0.0-1.0); %Eosinophils 1.3 % (0.0-10.0); %Lymphocytes 21.6 % (21.0-51.0); %Monocytes 12.9 % (0.0-10.0); %Neutrophils 63.5 % (42.0-75.0); Hemoglobin 12.4 g/dL (12.0-16.0); Mean Corpuscular HGB CONC 33.9 g/dL (32.0-36.0); Mean Corpuscular Hemoglobin 36.5 pg (27.0-31.0); Mean Platelet Volume 8.5 fL (7.4-10.4); Platelet Count 262 thou/uL (130-400); RBC Distribution Width 11.7 % (11.5-14.5); White Blood Cell (WBC) Count 8.9 thou/uL (4.8-10.8)
[2018-12-30 05:28] LABS: ALT (SGPT) 99 U/L (8-55); AST (SGOT) 23 U/L (5-34); Albumin 3.3 g/dL (3.5-5.0); Alkaline Phosphatase 45 U/L (40-150); Anion Gap 9 mmol/L (10-20); BUN (Urea Nitrogen) 7 mg/dL (7.0-18.7); Bilirubin, Total 0.5 mg/dL (0.2-1.2); Calc. Creatinine Clearance 117 mL/min (70-130); Calcium 9.6 mg/dL (7.8-10.44); Carbon Dioxide 29 mmol/L (22-29); Chloride 101 mmol/L (98-107); Estimated GFR-MDRD Greater than 90; Globulin 2.6 g/dL (2.4-3.5); Lipase 55 U/L (8-78); Magnesium 1.6 mg/dL (1.6-2.6); Potassium 3.8 mmol/L (3.5-5.1); Protein, Total 5.9 g/dL (6.0-8.3); Sodium 135 mmol/L (136-145)
[2018-12-30 05:32] LABS: Glucose 59 mg/dL (70-105)
[2018-12-30] MEDS: Folic Acid 1 MG TAB PO SCH (08:15)
[2018-12-30] MEDS: Multivit, Therapeutic 1 TAB PO SCH (08:15)
[2018-12-30] MEDS: Potassium Chloride 20 MEQ TAB PO SCH ×2 (08:15→16:27)
[2018-12-30] MEDS: Thiamine 100 MG TAB PO SCH (08:16)
[2018-12-30] MEDS: Docusate 100 MG CAP PO PRN (08:17)
[2018-12-30] MEDS: Nicotine 21 MG PATCH TD SCH (08:17)
[2018-12-30] MEDS: Pantoprazole 40 MG VIAL IVP SCH (08:17)
--- NOTE | 2018-12-30 10:49 | PRG ---
DATE OF SERVICE: 12/30/2018 SUBJECTIVE: Ms. Barr overall has had improvement in abdominal pain, but still requests IV pain medication. Her IV infiltrated last night. She has been tolerating clear liquid diet okay. Labs are all still favorable and she has remained hemodynamically stable. OBJECTIVE: VITAL SIGNS: Temperature 98.4, pulse 69, blood pressure 115/78, 97% oxygen saturation on room air. GENERAL: No acute distress. HEART: Regular rate and rhythm. LUNGS: Clear to auscultation bilaterally. ABDOMEN: Soft. Bowel sounds are present and normoactive. There is some tenderness to palpation in the epigastrium, but no guarding, rebound, or tenderness. Improved exam from before. EXTREMITIES: No peripheral edema. LABORATORY STUDIES: WBC 8.9, hemoglobin 12.4, platelets 262. Sodium 135, potassium 3.8, BUN 7, creatinine 0.60, total bilirubin 0.5, alkaline phosphatase 45, AST 23, ALT down to 99, lipase normal at 55. ASSESSMENT AND PLAN: 1. Acute recurrent alcoholic pancreatitis, continues to improve. Note, lipase normalized over 3 days ago. Her pain requirements are out of proportion to physical and laboratory evidence. Narcotics are being weaned down. I think we could try advancing her diet to a full liquid diet today. 2. Elevated LFTs, secondary to mild acute alcoholic hepatitis, resolved. LFTs declined throughout the admission, now all nearly normalized. She needs to completely avoid all alcohol going forward. 3. No new recommendations otherwise from a GI perspective. Please call back anytime if needed. Job ID: [id number]
--- NOTE | 2018-12-30 17:04 | PDOC.PN ---
- Subjective Encounter Start Date: 12/30/18 Encounter Start Time: 17:02 Subjective: Feeling better. Still having pain. -: fentanyl CABLE REELER discontinued due to no IV access -: Still no BM - Objective Vital Signs & Weight: Vital Signs (12 hours) Temp Pulse Resp BP BP Pulse Ox 12/30/18 15:35 97.9 F 67 16 118/79 97 12/30/18 12:10 121/84 12/30/18 08:00 115/78 97 12/30/18 07:20 98.4 F 69 16 115/78 97 Weight Admit Weight 128 lb 0.992 oz Weight 128 lb 0.992 oz I&O: 12/29/18 12/30/18 12/31/18 06:59 06:59 06:59 Intake Total 1920 500 Balance 1920 500 Result Diagrams: 12/30/18 04:43 12/30/18 04:43 Additional Labs: Accuchecks 12/30/18 12/30/18 12/29/18 13:24 08:19 17:48 POC Glucose 135 H 99 105 Phys Exam - Physical Examination Constitutional: NAD (fatigued) fatigued HEENT: PERRLA, moist MMs Neck: no JVD, supple Respiratory: no wheezing, no rales, no rhonchi, clear to auscultation bilateral Cardiovascular: RRR Gastrointestinal: soft, no distention, positive bowel sounds diffuse tenderness Musculoskeletal: no edema Neurological: non-focal, moves all 4 limbs Psychiatric: A&O x 3 Dx/Plan (1) Acute alcoholic hepatitis Code(s): K70.10 - ALCOHOLIC HEPATITIS WITHOUT ASCITES Status: Acute Comment : Enzymatically improved, serial monitoring, avoid ETOH (2) Hypokalemia Code(s): E87.6 - HYPOKALEMIA Status: Acute Comment: Corrected. (3) Therapeutic opioid-induced constipation (OIC) Code(s): K59.03 - DRUG INDUCED CONSTIPATION; T40.2X5A - ADVERSE EFFECT OF OTHER OPIOIDS, INITIAL ENCOUNTER Status: Acute (4) Tobacco abuse Code(s): Z72.0 - TOBACCO USE Status: Chronic Comment: Smoking cessation resources (5) Acute alcoholic pancreatitis Code(s): K85.20 - ALCOHOL INDUCED ACUTE PANCREATITIS WITHOUT NECROSIS OR INFCT Status: Acute Comment: Improved. Still having pain though. Off CABLE REELER (6) Gastritis Code(s): K29.70 - GASTRITIS, UNSPECIFIED, WITHOUT BLEEDING Status: Acute Comment: on PPI (7) Alcohol abuse Code(s): F10.10 - ALCOHOL ABUSE, UNCOMPLICATED Status: Chronic Comment: Ativan as needed (8) Hyponatremia Code(s): E87.1 - HYPO-OSMOLALITY AND HYPONATREMIA Status: Chronic Comment: Secondary to chronic ETOH abuse - Plan Fleet enema x 1 -: DC all IV medications -: increase activity -: Advance diet to regular as tolerated. -: Possible discharge tomorrow. * .
[2018-12-30] MEDS ORDERED: Mineral Oil ENEMA PR SCH (17:30)
[2018-12-30] MEDS: Lorazepam 1 MG TAB PO PRN (18:24)
[2018-12-30] MEDS: Pantoprazole 40 MG GRANULES PACKET PO SCH (21:05)
[2018-12-30] MEDS: Magnesium Oxide 400 MG TAB PO SCH (21:05)
[2018-12-30] MEDS ORDERED: Ondansetron ODT 4 MG TAB PO PRN (21:32)
[2018-12-31] MEDS: HYDROcodone/Acetaminophen 10/325 mg Tablet PO PRN ×5 (02:25→19:46)
[2018-12-31] MEDS: Lorazepam 1 MG TAB PO PRN ×3 (02:27→19:47)
[2018-12-31 04:36] VITALS: TEMP 98.1
[2018-12-31 06:17] LABS: ALT (SGPT) 73 U/L (8-55); AST (SGOT) 24 U/L (5-34); Albumin 3.3 g/dL (3.5-5.0); Alkaline Phosphatase 55 U/L (40-150); Anion Gap 11 mmol/L (10-20); BUN (Urea Nitrogen) 9 mg/dL (7.0-18.7); Bilirubin, Total 0.3 mg/dL (0.2-1.2); Calc. Creatinine Clearance 104 mL/min (70-130); Calcium 9.8 mg/dL (7.8-10.44); Carbon Dioxide 29 mmol/L (22-29); Chloride 99 mmol/L (98-107); Estimated GFR-MDRD Greater than 90; Globulin 2.8 g/dL (2.4-3.5); Glucose 109 mg/dL (70-105); Potassium 4.1 mmol/L (3.5-5.1); Protein, Total 6.1 g/dL (6.0-8.3); Sodium 135 mmol/L (136-145)
[2018-12-31] MEDS: Folic Acid 1 MG TAB PO SCH (08:54)
[2018-12-31] MEDS: Potassium Chloride 20 MEQ TAB PO SCH ×2 (08:54→17:02)
[2018-12-31] MEDS: Magnesium Oxide 400 MG TAB PO SCH ×2 (08:54→19:44)
[2018-12-31] MEDS: Multivit, Therapeutic 1 TAB PO SCH (08:54)
[2018-12-31] MEDS: Thiamine 100 MG TAB PO SCH (08:55)
[2018-12-31] MEDS: Pantoprazole 40 MG GRANULES PACKET PO SCH ×2 (08:55→19:45)
[2018-12-31] MEDS: Nicotine 21 MG PATCH TD SCH (08:57)
[2018-12-31 12:33] VITALS: BP 95/59
--- NOTE | 2018-12-31 13:37 | DIS ---
DATE OF ADMISSION: 12/22/2018 DATE OF DISCHARGE: 12/31/2018 DISCHARGE DIAGNOSES: 1. Acute alcoholic pancreatitis. 2. Acute alcoholic hepatitis. 3. Hypokalemia. 4. Gastritis. 5. Hypomagnesemia. 6. Tobacco abuse disorder. 7. Chronic alcohol abuse. 8. Hyponatremia. 9. Constipation. CONSULTS: Gastroenterology. HOSPITAL COURSE: A 38-year-old female with known history of alcohol abuse and prior history of recurrent alcoholic pancreatitis, admitted due to acute onset of abdominal pain following a bout of alcohol use. On presentation, the patient was found to have elevated lipase, alkaline phosphatase, AST and ALT consistent with acute alcoholic pancreatitis and hepatitis. The patient was treated with IV fluid, bowel rest, analgesic as well as benzodiazepine for alcohol withdrawal. The patient also received proton-pump inhibitor for alcohol-induced gastritis. She also was found to have electrolyte derangements including hyponatremia, which was felt to be due to poor oral intake and alcohol abuse as well as hypokalemia and hypomagnesemia. With IV fluid, hyponatremia resolved. The patient was treated with supplementation with resolution of hypomagnesemia and hypokalemia. She later was started on clear liquid diet, which was advanced slowly to regular. The patient remained stable and was subsequently discharged home. She is to follow up with primary care physician within a week of discharge. The patient also was advised to get help for alcohol abuse. PHYSICAL EXAMINATION: VITAL SIGNS: Temperature 98.1, pulse 76, respiratory rate 16, SpO2 of 97 on room air, blood pressure 95/61. GENERAL: Middle aged young lady, in no obvious distress. Afebrile. Anicteric. Acyanotic. HEENT: Normocephalic, atraumatic. Pupils are equal and reacting to light. CARDIOVASCULAR: Regular rhythm and rate with normal. sounds one and two. RESPIRATORY: Good air entry bilaterally with no obvious crackle or rhonchi or use of accessory muscles. GI: Abdomen is full, soft, nondistended with mild diffuse tenderness. Bowel sound is normoactive. EXTREMITIES: Grossly normal looking, atraumatic with no edema or erythema. NEUROLOGIC: Conscious and alert, oriented x3 with appropriate mental status. Cranial nerves 2 through 12 are intact. The patient is ambulant. CONDITION AT DISCHARGE: Improved. DISCHARGE MEDICATIONS: 1. Tylenol No. 3 one tablet q.6h p.r.n. for moderate to severe pain, 12 tablets were provided. 2. Folic acid 1 mg p.o. daily. 3. Magnesium oxide 400 mg p.o. b.i.d. 4. Multivitamin one tablet p.o. daily. 5. Nicotine patch 21 mg patch daily. 6. Protonix 40 mg p.o. daily. 7. MiraLAX 17 g b.i.d. 8. Thiamine 100 mg p.o. daily. TIME SPENT: This discharge took 37 minutes. Job ID: [id number]
== END 2018-12-31 19:50 | disposition home or self-care (01) | DRG 432 ==
LOC: ERS 00:17 → OBSVTOIN 04:33 → SURG A 04:33
PROVIDERS: ADMIT Hospitalist; ATTEND Hospitalist
DX: K70.10 Alcoholic hepatitis without ascites (principal); K85.20 Alcohol induced acute pancreatitis without necrosis or infection; E87.1 Hypo-osmolality and hyponatremia; F10.239 Alcohol dependence with withdrawal, unspecified; K29.20 Alcoholic gastritis without bleeding; E87.6 Hypokalemia; E83.42 Hypomagnesemia; I10 Essential (primary) hypertension; F17.210 Nicotine dependence, cigarettes, uncomplicated; Z76.5 Malingerer [conscious simulation]; E83.39 Other disorders of phosphorus metabolism; K59.03 Drug induced constipation; T40.2X5A Adverse effect of other opioids, initial encounter; Y92.239 Unspecified place in hospital as the place of occurrence of the external cause; Z88.0 Allergy status to penicillin; Z91.040 Latex allergy status; Z98.51 Tubal ligation status; Z88.8 Allergy status to other drugs, medicaments and biological substances; Z88.5 Allergy status to narcotic agent
CPT/HCPCS: 36415; 36416; 74178; 76705; 80048; 80053; 80074; 80076; 80307; 81003; 81025; 82140; 82150; 83690; 83735; 84100; 85025; 85610; 86038; 86225; 96361; 96374; 96375; C9113; J2060; J2270; J2405; J3010; J3411; J3475; J7042; J7050; Q0162; Q9966

== ENCOUNTER 2019-06-13 08:08 | Emergency (ER) | payer SELFPAY ==
[2019-06-13 08:40] LABS: Bacteria/HPF 1+ HPF (None Seen); Bilirubin Negative (Negative); Blood, Urine Negative (Negative); Clarity Clear (Clear); Glucose, Urine (Dipstick) Normal (Negative); Leukocyte Negative Leu/uL (Negative); Nitrite Negative (Negative); Protein, Urine (Dipstick) 30 mg/dL (Neg-Trace); RBC/HPF 0-3 HPF (0-3); Squamous Epithelial 0-3 HPF (0-3); Urobilinogen Normal mg/dL (Less than 2)
[2019-06-13] MEDS ORDERED: Morphine 4 MG/ML VIAL ONE (09:18)
[2019-06-13] MEDS ORDERED: Ondansetron PF 4 MG/2 ML Vial ONE (09:18)
[2019-06-13 09:39] LABS: #Basophils 0.1 thou/uL (0.0-0.2); #Eosinphils 0.2 thou/uL (0.0-0.7); #Lymphocytes 1.6 thou/uL (1.20-3.40); #Monocytes 0.9 thou/uL (0.11-0.59); #Neutrophils 5.4 thou/uL (1.40-6.50); %Basophils 0.7 % (0.0-1.0); %Eosinophils 1.9 % (0.0-10.0); %Lymphocytes 20.3 % (21.0-51.0); %Monocytes 10.7 % (0.0-10.0); %Neutrophils 66.4 % (42.0-75.0); Hemoglobin 14.8 g/dL (12.0-16.0); MDiff Complete? YES; Macrocytosis SLIGHT = 6-15 cells (100X) (0-5/hpf); Mean Corpuscular HGB CONC 34.1 g/dL (32.0-36.0); Mean Corpuscular Hemoglobin 35.9 pg (27.0-31.0); Mean Platelet Volume 8.7 fL (7.4-10.4); Platelet Count 91 thou/uL (130-400); Platelet Morphology Comment Appears Decreased; Polychromasia SLIGHT = 2-3 cells (100X) (0-2/hpf); RBC Distribution Width 12.7 % (11.5-14.5); Red Blood Cell (RBC) Count 4.12 mill/uL (4.20-5.40); White Blood Cell (WBC) Count 8.1 thou/uL (4.8-10.8)
[2019-06-13 09:47] LABS: ALT (SGPT) 34 U/L (8-55); AST (SGOT) 48 U/L (5-34); Albumin 4.5 g/dL (3.5-5.0); Alkaline Phosphatase 52 U/L (40-150); Anion Gap 24 mmol/L (10-20); BUN (Urea Nitrogen) 8 mg/dL (7.0-18.7); Bilirubin, Total 1.7 mg/dL (0.2-1.2); Calc. Creatinine Clearance 0 mL/min (70-130); Calcium 9.3 mg/dL (7.8-10.44); Carbon Dioxide 21 mmol/L (22-29); Chloride 93 mmol/L (98-107); Estimated GFR-MDRD Greater than 90; Globulin 3.2 g/dL (2.4-3.5); Glucose 65 mg/dL (70-105); Lipase 167 U/L (8-78); Potassium 3.5 mmol/L (3.5-5.1); Protein, Total 7.7 g/dL (6.0-8.3); Sodium 134 mmol/L (136-145)
[2019-06-13] MEDS ORDERED: HYDROcodone/Acetaminophen 7.5/325 mg Tablet ONE (10:20)
[2019-06-13 12:32] LABS: Anion Gap 18 mmol/L (10-20); BUN (Urea Nitrogen) 6 mg/dL (7.0-18.7); Calc. Creatinine Clearance 0 mL/min (70-130); Calcium 7.5 mg/dL (7.8-10.44); Carbon Dioxide 19 mmol/L (22-29); Chloride 103 mmol/L (98-107); Estimated GFR-MDRD Greater than 90; Glucose 62 mg/dL (70-105); Potassium 3.9 mmol/L (3.5-5.1); Sodium 136 mmol/L (136-145)
== END 2019-06-13 14:10 | disposition home or self-care (01) ==
LOC: ERS 08:08
DX: K85.90 Acute pancreatitis without necrosis or infection, unspecified (principal); F17.210 Nicotine dependence, cigarettes, uncomplicated
CPT/HCPCS: 36415; 80053; 81003; 81015; 83690; 85025; 94760; 96361; 96374; 96375; J2270; J2405

== ENCOUNTER 2019-06-14 20:04 | Inpatient (IN) | payer SELFPAY ==
[2019-06-14] MEDS ORDERED: Ondansetron PF 4 MG/2 ML Vial ONE (20:35)
[2019-06-14 20:38] LABS: #Eosinphils 0.1 thou/uL (0.0-0.7); #Lymphocytes 1.2 thou/uL (1.20-3.40); #Neutrophils 10.7 thou/uL (1.40-6.50); %Basophils 0.1 % (0.0-1.0); %Eosinophils 0.5 % (0.0-10.0); %Lymphocytes 9.2 % (21.0-51.0); %Monocytes 7.6 % (0.0-10.0); %Neutrophils 82.6 % (42.0-75.0); Hemoglobin 15.8 g/dL (12.0-16.0); Mean Corpuscular HGB CONC 33.1 g/dL (32.0-36.0); Mean Corpuscular Hemoglobin 34.9 pg (27.0-31.0); Platelet Count 93 thou/uL (130-400); RBC Distribution Width 12.8 % (11.5-14.5); Red Blood Cell (RBC) Count 4.52 mill/uL (4.20-5.40); White Blood Cell (WBC) Count 12.9 thou/uL (4.8-10.8)
[2019-06-14] MEDS ORDERED: Morphine 4 MG/ML VIAL ONE ×2 (20:38→23:18)
[2019-06-14 21:10] LABS: ALT (SGPT) 33 U/L (8-55); AST (SGOT) 38 U/L (5-34); Albumin 4.7 g/dL (3.5-5.0); Alkaline Phosphatase 54 U/L (40-150); Anion Gap 18 mmol/L (10-20); BUN (Urea Nitrogen) 6 mg/dL (7.0-18.7); Bilirubin, Total 0.8 mg/dL (0.2-1.2); Calc. Creatinine Clearance 0 mL/min (70-130); Calcium 9.9 mg/dL (7.8-10.44); Carbon Dioxide 21 mmol/L (22-29); Chloride 95 mmol/L (98-107); Estimated GFR-MDRD 83; Globulin 3.3 g/dL (2.4-3.5); Glucose 93 mg/dL (70-105); Lipase 564 U/L (8-78); Potassium 3.9 mmol/L (3.5-5.1); Sodium 130 mmol/L (136-145)
--- NOTE | 2019-06-14 22:38 | PDOC.FPRHP ---
- History of Present Illness Chief Complaint: n/v, abd pain History of Present Illness: Pt presents after N/V and abd pain started on Monday. Presented to ED last night and lipase was in 100s, presented again tonight and was 564. Reports feeling nauseous continuously, vomiting all day Monday, 5 times Monday, and 7 times today. Reports vomiting 20-30 minutes after eating and drinking. Some regurgitation of undigested food. Her abdominal pain is severity of 15/10 at its worst. Pain located in upper abdomen near epigastric area, wraps around sides to her back. Also reports chest pain on R side which feels heavy and spasms to her R scapula. Denies hematemesis, melena, hematochezia, hematuria, dysuria. Pt does not have a PCP. Pt does report some nausea after eating a large meal w/ fatty foods prior to this episode. ED Course: morphine, zofran, IV NS 1 L - Allergies/Adverse Reactions Allergies Allergy/AdvReac Type Severity Reaction Status Date / Time adhesive tape Allergy Verified 06/14/19 23:49 butorphanol tartrate Allergy Rash Verified 06/14/19 23:49 [From Stadol] ketorolac tromethamine Allergy Rash Verified 06/14/19 23:49 [From Toradol] latex Allergy Rash Verified 06/14/19 23:49 meperidine HCl [From Demerol] Allergy Rash Verified 06/14/19 23:49 Penicillins Allergy Rash Verified 06/14/19 23:49 promethazine HCl Allergy Rash Verified 06/14/19 23:49 [From Phenergan] - Home Medications Medication Instructions Recorded Confirmed Type Acetaminophen W/ Codeine [Tylenol 1 tab PO Q6HR PRN #12 tab 12/31/18 06/14/19 Rx #3] HYDROcodone/Acetaminophen 1 each PO Q6H PRN 06/14/19 06/14/19 History [Hydrocodone-Acetamin 5-325 mg] Ondansetron HCl 4 mg SL Q8H PRN 06/14/19 06/14/19 History - History PMHx: - Pre-diabetes: not on any meds, tries to eat healthy w/ vegetables - Anemia: tries to supplement w/ vegetables as well. - Seasonal allergies - Hx of kidney stones and frequent UTIs - 2 previous hospitalizations for pancreatitis: first episode deemed alcoholic pancreatitis, second due to stress. Last hospitalization in November 2018. PSHx: - Tubal ligation FHx: - Mother: MS, stroke, CABG - Father: alcoholism, HTN Social: - Lives w/ 3 youngest children. Has 7 children, all vaginal deliveries. Recently the father of her sons so she has been stressed. 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 - Smokin.5-0.75 ppd for past 24 years - Alcohol: consumes ~30 shots per week. Denies need to drink daily or have drink first thing in the morning. Has been drinking at this amount for past 5-6 years. - Denies rec drugs. - Review of Systems General: reports: night sweats. denies: fever/chills, weight/appetite/sleep changes, fatigue Eyes: reports: vision changes (feels like she cannot read up close and has trouble w/ night-time driving) ENT: denies: nasal congestion, rhinorrhea Respiratory: reports: shortness of breath (with the pain). denies: cough Cardiovascular: reports: chest pain (see hpi), palpitation (intermittently). denies: edema Gastrointestinal: denies: diarrhea, constipation, GI bleeding Genitourinary: denies: incontinence, dysuria (reports urinating very little despite drinking water often) Skin: reports: other (reports she bruises easily from her "anemia"). denies: rashes, lesions, jaundice Musculoskeletal: denies: pain, tenderness, stiffness Neurological: denies: numbness, syncope, seizure, weakness Psychological: reports: anxiety, other (life stressor of Father of children passing away). denies: depression - Vital signs BP: 156/93 HR: 72 RR: 14 Tmax: 98.3 Pox: 100% on RA Wt: 55 kg - Physical Exam Constitutional: NAD, awake, alert and oriented HEENT: normocephalic and atraumatic, EOMI, conjunctiva clear, no scleral icterus , MMM Neck: supple, trachea midline, no LAD (small palpable lymph node on R posterior neck) Heart: RRR, normal S1/S2, no murmurs/rubs/gallops Lungs: CTAB, no respiratory distress, good air movement, no wheezing Abdomen: soft, bowel sounds present, no masses/distention, other (most TTP over epigastric area, less so over mid-right and mid-left area next to umbilicus) Musculoskeletal: normal structure, normal tone Neurological: no focal deficit Skin: no rash/lesions, no jaundice Heme/Lymphatic: no unusual bruising or bleeding, no purpura, no petechia Psychiatric: normal mood and affect, intact recent and remote memory FMR H&P: Results - Labs Result Diagrams: 06/15/19 01:47 06/15/19 01:47 Lab results: WBC 12.9 thou/uL (4.8-10.8) H 06/14/19 20:25 Hgb 15.8 g/dL (12.0-16.0) 06/14/19 20:25 Hct 47.6 % (36.0-47.0) H 06/14/19 20:25 MCV 105.0 fL (78.0-98.0) H 06/14/19 20:25 Plt Count 93 thou/uL (130-400) L 06/14/19 20:25 Neutrophils % 82.6 % (42.0-75.0) H 06/14/19 20:25 Sodium 130 mmol/L (136-145) L 06/14/19 20:25 Potassium 3.9 mmol/L (3.5-5.1) 06/14/19 20:25 Chloride 95 mmol/L (98-107) L 06/14/19 20:25 Carbon Dioxide 21 mmol/L (22-29) L 06/14/19 20:25 BUN 6 mg/dL (7.0-18.7) L 06/14/19 20:25 Creatinine 0.78 mg/dL (0.6-1.1) 06/14/19 20:25 Glucose 93 mg/dL (70-105) 06/14/19 20:25 Calcium 9.9 mg/dL (7.8-10.44) 06/14/19 20:25 Total Bilirubin 0.8 mg/dL (0.2-1.2) 06/14/19 20:25 AST 38 U/L (5-34) H 06/14/19 20:25 ALT 33 U/L (8-55) 06/14/19 20:25 Alkaline Phosphatase 54 U/L (40-150) 06/14/19 20:25 Serum Total Protein 8.0 g/dL (6.0-8.3) 06/14/19 20:25 Albumin 4.7 g/dL (3.5-5.0) 06/14/19 20:25 Lipase 564 U/L (8-78) H 06/14/19 20:25 FMR H&P: A/P - Problem List (1) Alcohol use disorder Current Visit: Yes Status: Chronic Code(s): GVC2110 - (2) Nausea & vomiting Current Visit: Yes Status: Acute Code(s): R11.2 - NAUSEA WITH VOMITING, UNSPECIFIED Comment: Resolved, supportive mgmt, Zofran prn (3) Hyponatremia Current Visit: Yes Status: Chronic Code(s): E87.1 - HYPO-OSMOLALITY AND HYPONATREMIA Comment: Secondary to chronic ETOH abuse (4) Tobacco abuse Current Visit: No Status: Chronic Code(s): Z72.0 - TOBACCO USE Comment: Smoking cessation resources (5) Acute on chronic pancreatitis Current Visit: Yes Status: Acute Code(s): K85.90 - ACUTE PANCREATITIS WITHOUT NECROSIS OR INFECTION, UNSP; K86.1 - OTHER CHRONIC PANCREATITIS (6) Thrombocytopenia Current Visit: Yes Status: Acute Code(s): D69.6 - THROMBOCYTOPENIA, UNSPECIFIED - Plan Admit as inpatient to medical floor. Disposition/LOS: 38-yo f here for nausea, vomiting, abdominal pain: Pancreatitis, Acute on Chronic versus Acute: - MIVF LR @ 100 mL/hr after banana bag - Banana bag now - Morphine for pain control. Tylenol for moderate pain control - Zofran for nausea and vomiting - NPO, can have meds w/ sips of water and ice chips - Etiology speculated but not known, ordered labs: EtOH level, lipid panel, RUQ U/S to assess for gallstones. - Strongly consider CT of abd/pelvis if no improvement in symptoms, especially since last pancreatitis episode was almost exactly 6 months ago, at which time necrosis or pseudocyst may develop. - Theodore's score difficult to calculate at this time since symptoms started over 48 hours ago and LDH is pending. Usefulness is limited. Macrocytic anemia likely 2/2 alcohol use disorder 2/2 low B12 and/or folate: - Vitamin b12 and folate level labs - Will rehydrate w/ LR and banana bag bolus and see pt's Hgb since she is likely dehydrated. Hct was 47. - After banana bag may supplement w/ oral folate, thiamine, b12 Alcohol use disorder Tobacco use disorder - ASE protocol to assess first: give valium 10mg first 24 hr and 5 mg next 24 hr and thereafter if symptomatic - Pt reports last drink was over 1 week ago - Nicotine patch Hypertension, acute: - likely secondary to pain, continue to monitor. Hyponatremia, acute vs chronic: - may be chronic due to intake of alcohol and poor nutrition. - repeat CMP in AM Thrombocytopenia - may be secondary to alcohol use, repeat CBC in AM. Code: FULL VTE PPx: none, ambulation/walking program ordered GI PPx: none Daphne Ho MD PGY1 FMR H&P: Upper Level - Pertinent history 38 yo F w/ PMH of alcohol abuse and previous episodes of pancreatitis and alcoholic hepatitis presents for worsening abd pain and nausea and vomiting. Pt reports pain is similar in characteristic to previous episodes. Reports worsening NV since previous visit to ER and inability to tolerate PO. Pt reports last acloholic drink was evening. She was seen in the ER after that episode of drinking and ultimately sent home, she then returned the following day for worsening symptoms. No fever, chills, dizziness, lightheadedness. Reports epigastric pain and NV. Pain radiates into back. - Pertinent findings ROS: As above PE: Gen: NAD resting comfortably in bed HEENT: NCAT, PERRLA, EOMI, No scleral icterus CV: RRR No MRG Resp: Cta b/l no WRR Abd: Soft, no rigidity, pos guarding, ttp epigastrium, no rebound Neuro: Tremulous, no focal deficit Psych: appropriately interactive, does not appear acutely intoxicated - Plan Date/Time: 06/14/19 0674 IJulius DO, have evaluated this patient and agree with findings/ plan as outlined by business development intern resident. Pertinent changes/additions are listed here. 1) Acute on chronic alcoholic pancreatitis: clemente 0 - will admit to medical for pain control - NPO, ADAT, cont IVF - will check FLP, alcohol level - consider further imaging in AM to r/o pseudocyst formation vs necrosis - consider GI consult - RUQ US to r/o other etiologies 2) Alcohol abuse: - >24 hours since reported last drink - will give banana bag X1 and place on ASE protocol with medications as pt tremulous on exam 3) Transaminitis: possibly leak from pancreatic inflammation vs alcohol induced -associated thrombocytopenia from consumption vs diminished production from worsening liver disease - await RUQ us, consider further studies - will trend, consider coags 4) Thrombocytopenia, see above VTE: SCDs Codes Status: Full
[2019-06-14] MEDS ORDERED: Lactated Ringer's 1,000 ML IV SCH (23:45)
[2019-06-14] MEDS ORDERED: Ondansetron PF 4 MG/2 ML Vial IVP PRN (23:47)
[2019-06-14] MEDS ORDERED: Acetaminophen 325 MG TAB PO PRN (23:47)
[2019-06-14] MEDS ORDERED: Ondansetron ODT 4 MG TAB SL PRN (23:47)
[2019-06-14] MEDS ORDERED: Morphine 4 MG/ML VIAL SLOW IVP PRN (23:48)
[2019-06-15] MEDS ORDERED: Acetaminophen 325 MG TAB PO PRN (00:32)
[2019-06-15] MEDS ORDERED: Lactated Ringer's 1,000 ML IV SCH (00:45)
[2019-06-15] MEDS ORDERED: Nicotine 14 MG PATCH TD SCH (00:45)
[2019-06-15] MEDS ORDERED: Multivitamins, Adult 10 ML, Folic Acid 1 MG, Thiamine HCl 100 MG in Dextrose 5 %-0.45 %... IV ONE (01:00)
[2019-06-15] MEDS ORDERED: Morphine 2 MG/ML SYRINGE SLOW IVP PRN (01:05)
[2019-06-15 01:52] LABS: #Basophils 0.1 thou/uL (0.0-0.2); #Eosinphils 0.1 thou/uL (0.0-0.7); #Lymphocytes 1.5 thou/uL (1.20-3.40); #Neutrophils 9.6 thou/uL (1.40-6.50); %Basophils 0.5 % (0.0-1.0); %Eosinophils 1.1 % (0.0-10.0); %Lymphocytes 12.4 % (21.0-51.0); %Neutrophils 78.1 % (42.0-75.0); Hemoglobin 14.2 g/dL (12.0-16.0); Mean Corpuscular HGB CONC 33.8 g/dL (32.0-36.0); Mean Corpuscular Hemoglobin 36.1 pg (27.0-31.0); Mean Platelet Volume 8.9 fL (7.4-10.4); Platelet Count 80 thou/uL (130-400); RBC Distribution Width 12.7 % (11.5-14.5); Red Blood Cell (RBC) Count 3.92 mill/uL (4.20-5.40); White Blood Cell (WBC) Count 12.3 thou/uL (4.8-10.8)
[2019-06-15 02:16] LABS: Alcohol Less than 10 mg/dL (Less than 10); Cardiac Risk 1.8 (Less than 4.5); Cholesterol 178 mg/dl (< 200 Desired); HDL Cholesterol 97 mg/dL (>60 Neg Risk); LDL Cholesterol, Calculated 63 mg/dL; Triglycerides 88 mg/dL (Less than 150)
[2019-06-15 02:22] LABS: ALT (SGPT) 26 U/L (8-55); AST (SGOT) 27 U/L (5-34); Albumin 3.8 g/dL (3.5-5.0); Alkaline Phosphatase 43 U/L (40-150); Anion Gap 17 mmol/L (10-20); BUN (Urea Nitrogen) 6 mg/dL (7.0-18.7); Bilirubin, Total 0.6 mg/dL (0.2-1.2); Calc. Creatinine Clearance 105 mL/min (70-130); Calcium 8.6 mg/dL (7.8-10.44); Carbon Dioxide 18 mmol/L (22-29); Chloride 101 mmol/L (98-107); Estimated GFR-MDRD Greater than 90; Globulin 2.8 g/dL (2.4-3.5); Glucose 86 mg/dL (70-105); Magnesium 1.3 mg/dL (1.6-2.6); Phosphorus 2.6 mg/dL (2.3-4.7); Potassium 3.6 mmol/L (3.5-5.1); Protein, Total 6.6 g/dL (6.0-8.3); Sodium 132 mmol/L (136-145)
[2019-06-15] MEDS: Morphine 4 MG/ML VIAL SLOW IVP PRN ×5 (03:13→22:56)
[2019-06-15] MEDS: Ondansetron ODT 4 MG TAB PO PRN (03:19)
[2019-06-15] MEDS ORDERED: Magnesium 2 GM/50 ML 2 GM in Premix Bag 1 BAG IVPB SCH (04:30)
[2019-06-15 04:48] LABS: Folate (Folic Acid) 5.2 ng/mL (7.0-31.4)
--- NOTE | 2019-06-15 06:08 | PDOC.FM ---
- Subjective Subjective: Ms. Barr was curled in the position in bed during the evaluation. She endorsed continued nausea and abdominal pain, but states that her pain is being better controlled than it was prior to admission. She was counseled briefly about the causes of pancreatitis, and how this episode was most likely related to her continued EtOH abuse. She did not seem receptive to the importance of EtOH cessation. - Objective Vital Signs & Weight: Vital Signs (12 hours) Temp Pulse Resp BP Pulse Ox 06/15/19 03:10 98.2 F 85 16 144/96 H 100 06/15/19 00:32 100 06/14/19 23:34 97.4 F L 84 18 139/94 H 100 Weight Weight 54.885 kg Result Diagrams: 06/15/19 01:47 06/15/19 01:47 Phys Exam - Physical Examination Patient in position in obvious discomfort HEENT: moist MMs, oral pharynx no lesions Neck: supple, full ROM Respiratory: no wheezing, no rales, no rhonchi, clear to auscultation bilateral Cardiovascular: RRR, no significant murmur, no rub Gastrointestinal: soft, no distention TTP diffusely Musculoskeletal: no edema, pulses present Neurological: non-focal, moves all 4 limbs Skin: no rash Dx/Plan - Plan Plan: 1. Pancreatitis, Acute on Chronic -History of ABD pain with characteristic radiation pattern, fatty food aversion , and elevated Lipase (> 500) -MIVF LR @ 100 mL/hr after banana bag -Received Banana Bag -Tylenol for moderate pain control with Morphine for break-through pain Zofran for nausea and vomiting -NPO (Meds with Sips of Water) -Etiology unknown -Plasma EtOH: Negative -Lipid Panel: Triglycerides (88), Cholesterol (178), HDL (97) LDL (63) -RUQ U/S: Pending to assess for Gallstones -Strongly consider CT of ABD/Pelvis if no improvement in symptoms or suspicion of pancreatic pseudocyst arises 2. Macrocytic Anemia, likely 2/2 to EtOH Abuse Disorder -Rehydrate w/ LR and Banana Bag -H.2 -Hct: 41.9 -Consider ongoing supplementation w/ oral Folate, Thiamine, B12 3. EtOH Abuse Disorder -ASE Protocol -Pt reports last drink was over 1 week ago -Monitor for signs of withdrawal 4. HTN -Likely secondary to pain on presentation -144/96 on 06/15 -Continue to monitor. 5. Hyponatremia -Na: 130 > 132 -Possibly chronic due to intake of EtOH and poor nutrition. -Continue fluid resuscitation 6. Thrombocytopenia -Plt: 80 -Likely secondary to alcohol use -Assess for bleeding risks -Continue to monitor Code: FULL VTE PPx: None Activity: Ambulation/Walking Program Ordered GI PPx: None Dispo: Patient currently admitted to Telemetry Floor for monitoring. Continue with fluid and electrolyte replacement and monitor for signs of withdrawal. Control pain and keep NPO. Expected LOS < 48H Addendum - Attending - Attending Attestation Date/Time: 06/15/19 1142 I personally evaluated the patient and discussed the management with Dr. Ho , Yina and Shante. H&P repeated by me. I agree with the History, Examination, Assessment and Plan documented above with any addition or exceptions noted below. Recurrent acute pancreatitis- will check RUQ u/s but most likely secondary to alcohol use. NPO, IVF, pain medication. Thrombocytopenia, mild- asymptomatic- trend daily- most likely secondary to folate deficiency- will begin oral replacement once tolerating po. Macrocytosis secondary to folate deficiency-replace as above EtOH use- ASE for signs of withdrawl.
[2019-06-15] MEDS: Lactated Ringer's 1,000 ML IV SCH ×5 (07:22→22:59)
[2019-06-15] MEDS: Nicotine 14 MG PATCH TD SCH (08:40)
--- NOTE | 2019-06-15 09:12 | ULT ---
EXAM: Right upper quadrant ultrasound PROVIDED CLINICAL HISTORY: Acute pancreatitis COMPARISON: 12/22/2018 FINDINGS: There is a heterogeneous appearance to the pancreas compatible with the provided clinical history of pancreatitis. Liver demonstrates no mass or intrahepatic biliary ductal dilatation. Common duct is dilated, measuring about 7 mm. On the prior examination measured about 4 mm. No evidence for gallston es. Mildly distended gallbladder. Minimal pericholecystic fluid. Presence or absence of a sonographic Carrera sign is not indicated by the dehairer. Right kidney demonstrates no hydronephro sis or mass. IMPRESSION: 1. Sonographic appearance of the pancreas compatible with the provided clinical history of acute panc reatitis. 2. Dilated common duct. Consider correlating with MRCP. 3. Minimal pericholecystic fluid without evidence for gallstones. This may be reactive due to the downing creatitis.
[2019-06-15 09:45] LABS: Bilirubin Negative (Negative); Blood, Urine 2+ (Negative); Clarity Clear (Clear); Glucose, Urine (Dipstick) Normal (Negative); Leukocyte Negative Leu/uL (Negative); Nitrite Negative (Negative); Protein, Urine (Dipstick) Negative (Neg-Trace); RBC/HPF 0-3 HPF (0-3); Squamous Epithelial 0-3 HPF (0-3); Urobilinogen Normal mg/dL (Less than 2); WBC/HPF 0-3 HPF (0-3)
[2019-06-15 09:47] LABS: Bacteria/HPF 1+ HPF (None Seen)
[2019-06-15] MEDS: Ondansetron PF 4 MG/2 ML Vial IVP PRN (12:19)
[2019-06-15 15:21] VITALS: BMI 23.1
--- NOTE | 2019-06-15 22:12 | CON ---
DATE OF CONSULTATION: 06/15/2019 REASON FOR CONSULTATION: Linil-bm-nutascd pancreatitis. CONSULTING PROVIDER: Adams Frey MD HISTORY OF PRESENT ILLNESS: The patient is a 38-year-old female with past medical history of impaired fasting glucose, alcohol abuse, and recurrent pancreatitis, who presenting with recurrence of her increased midepigastric abdominal pain. She states that since her discharge from the hospital in November of 2018, she has been having intermittent episodes of increased midepigastric abdominal pain that had been occurring approximately every 1 to 2 weeks, lasting for 3 to 4 hours in duration, but relieved with administration of ibuprofen; however, approximately 3 days ago, she began having increased midepigastric abdominal pain that would radiate to the right upper quadrant, left upper quadrant, and mid-back and was characterized as a sharp/stabbing/dull-type pain, was constant and reached a severity of 10/10. With increased severity of this pain, it prompted her to seek healthcare assistance at [facility]. She states that the pain experiencing now is similar when compared to prior episodes of pancreatitis. Upon further questioning, the patient does still continue to smoke as well as drink alcohol despite being advised not to in the past. With the increased abdominal pain, it was associated with nausea and vomiting with nonbloody emesis, mild substernal chest pain, as well as increased blurry vision; however, she currently denies any hematemesis, melena, hematochezia, dysphagia, odynophagia, or weight loss. REVIEW OF SYSTEMS: A 10-category review of systems was obtained with all responses negative except for the pertinent positives as listed in HPI. PAST MEDICAL HISTORY: As per HPI. PAST SURGICAL HISTORY: Bilateral tubal ligation. FAMILY HISTORY: Denies any GI malignancies. SOCIAL HISTORY: Continues to smoke 1/2 to 1 pack per day. She also endorses drinking alcohol on a binge-type basis, where she will have 2 to 3 drinks every few days, but adds that she has been "cutting down." She currently denies any illicit substance use. OUTPATIENT MEDICATIONS: Reviewed. ALLERGIES: DEMEROL, LATEX, PENICILLIN, STADOL, AND TORADOL. PHYSICAL EXAMINATION: VITAL SIGNS: Temperature 98.5, pulse 87, blood pressure 154/93, respiratory rate 17, saturating 98% on room air. GENERAL: The patient was lying in bed, in no acute distress. Alert and oriented x4. HEENT: Normocephalic and atraumatic. NECK: Supple. No JVD or scleral icterus noted. CARDIOVASCULAR: Regular rate and rhythm with no discernible murmurs, gallops, or rubs. RESPIRATORY: Clear to auscultation bilaterally with no discernible wheezes or rales. ABDOMEN: Normoactive bowel sounds. Soft, nondistended. Tenderness to palpation in the right upper quadrant, midepigastric, left upper quadrant, and periumbilical regions. EXTREMITIES: No cyanosis, clubbing, or edema. LABORATORY DATA: CBC with a white blood cell count of 12.3, hemoglobin 14.2, hematocrit 41.9, and platelets 80. Chemistry with a sodium of 132, potassium 3.6, chloride 101, CO2 of 18, BUN 6, creatinine 0.63, glucose 86. AST 27, ALT 26, alkaline phosphatase 43, total bilirubin 0.6, lipase 564. Lipid panel was negative for hypertriglyceridemia. IMAGING DATA: Right upper quadrant abdominal ultrasound was obtained on June 15, 2019, which showed an appearance of the pancreas compatible with acute pancreatitis; however, the liver was without masses or intrahepatic dilatation with the common bile duct measuring 7 mm in size. No gallstones were seen within the gallbladder, but mildly distended gallbladder was seen. Mild pericholecystic fluid was also seen during this examination. ASSESSMENT AND PLAN: 1. The patient is a 38-year-old female with past medical history of impaired fasting glucose, alcohol abuse, and recurrent pancreatitis, presenting with midepigastric abdominal pain consistent with an acute episode of chronic pancreatitis. 2. Ttial-cd-finkvij pancreatitis. a. The patient has a longstanding history of increased midepigastric abdominal pain and acute pancreatitis as evidence by imaging and significantly elevated lipase in the recent past with her most recent hospitalization for this condition in November of 2018. She continues to consume alcohol and smoke further contributing to possible episodes of pancreatitis. Currently, she is presenting with no evidence of end-organ dysfunction nor imaging showing any cystic pancreatic masses concerning for pseudocyst formation or even possible pancreatic necrosis (although ultrasound is not the best test for that determination). Based on the current labs and her current clinical situation, I would characterize this is acute uncomplicated pancreatitis, and would therefore respond to more conservative management. RECOMMENDATIONS: 1. We will continue the patient on n.p.o. status with reluctance in restarting the patient's diet given increased pain in the past with starting it too early. 2. We will continue the patient on IV fluid resuscitation at approximately 200 mL/hr for the first 16 hours, then decreasing to 150 mL/hr until the patient is tolerating clear liquids. 3. Pain control per Primary Team, although the patient has needed Dilaudid administration in the past to control her pain. 4. Endoscopic management is not indicated at this time given lack of pseudocyst or pancreatic necrosis. If the patient exhibits increased fever and/or white count approximately 1 week after initial presentation, I would then repeat a CT scan on her for possible pancreatic necrosis. We will continue to follow. Please call with any questions. Job ID: [id number]
[2019-06-16] MEDS: Ondansetron PF 4 MG/2 ML Vial IVP PRN (02:57)
[2019-06-16] MEDS: Morphine 4 MG/ML VIAL SLOW IVP PRN ×6 (02:57→23:50)
[2019-06-16] MEDS: Lactated Ringer's 1,000 ML IV SCH ×5 (03:00→23:52)
[2019-06-16 04:16] LABS: #Eosinphils 0.1 thou/uL (0.0-0.7); #Lymphocytes 0.7 thou/uL (1.20-3.40); #Monocytes 0.8 thou/uL (0.11-0.59); #Neutrophils 6.4 thou/uL (1.40-6.50); %Basophils 0.2 % (0.0-1.0); %Eosinophils 0.9 % (0.0-10.0); %Lymphocytes 8.7 % (21.0-51.0); %Neutrophils 80.2 % (42.0-75.0); Hemoglobin 12.5 g/dL (12.0-16.0); Mean Corpuscular HGB CONC 34.1 g/dL (32.0-36.0); Mean Corpuscular Hemoglobin 36.3 pg (27.0-31.0); Mean Platelet Volume 9.5 fL (7.4-10.4); Platelet Count 66 thou/uL (130-400); RBC Distribution Width 12.8 % (11.5-14.5); Red Blood Cell (RBC) Count 3.43 mill/uL (4.20-5.40)
[2019-06-16 04:37] LABS: ALT (SGPT) 18 U/L (8-55); AST (SGOT) 25 U/L (5-34); Albumin 3.1 g/dL (3.5-5.0); Alkaline Phosphatase 36 U/L (40-150); Anion Gap 14 mmol/L (10-20); BUN (Urea Nitrogen) Less than 4 mg/dL (7.0-18.7); Bilirubin, Total 0.5 mg/dL (0.2-1.2); Calc. Creatinine Clearance 131 mL/min (70-130); Calcium 8.5 mg/dL (7.8-10.44); Carbon Dioxide 19 mmol/L (22-29); Chloride 100 mmol/L (98-107); Estimated GFR-MDRD Greater than 90; Globulin 2.6 g/dL (2.4-3.5); Glucose 76 mg/dL (70-105); Potassium 3.7 mmol/L (3.5-5.1); Protein, Total 5.7 g/dL (6.0-8.3); Sodium 129 mmol/L (136-145)
--- NOTE | 2019-06-16 06:03 | PDOC.FM ---
- Subjective Subjective: Mrs. Marin reported no overnight events and only complains of a moderate amount of pain, although she feels that her pain medication regimen is adequately helping at this time. - Objective Vital Signs & Weight: Vital Signs (12 hours) Temp Pulse Resp BP BP Pulse Ox 06/16/19 00:54 158/89 H 06/16/19 00:00 98.6 F 86 20 158/89 H 100 06/15/19 21:00 170/93 H 06/15/19 20:00 98.1 F 82 20 170/93 H 100 Weight Admit Weight 54.885 kg Weight 55.367 kg I&O: 06/14/19 06/15/19 06/16/19 06:59 06:59 06:59 Intake Total 1069 1882 Output Total 500 Balance 1069 1382 Result Diagrams: 06/16/19 04:00 06/16/19 04:00 Phys Exam - Physical Examination Laying in the position, clearly in pain HEENT: PERRLA, moist MMs, sclera anicteric, oral pharynx no lesions Neck: no nodes, supple, full ROM Respiratory: no wheezing, no rales, no rhonchi Cardiovascular: RRR, no significant murmur, no rub Gastrointestinal: soft, no distention Minimal bowel sounds with diffuse TTP Musculoskeletal: no edema, pulses present Neurological: non-focal, moves all 4 limbs Lymphatic: no nodes Psychiatric: normal affect Skin: no rash Dx/Plan - Plan Plan: 1. Pancreatitis, Acute on Chronic -History of ABD pain with characteristic radiation pattern, fatty food aversion , and elevated Lipase (> 500) -LR @ 150 mL/hr after Banana Bag -Tylenol for moderate pain control with Morphine for break-through pain -Zofran for nausea and vomiting -NPO (Meds with Sips of Water) -Etiology unknown, EtOH abuse suspected -Plasma EtOH: Negative -Lipid Panel: Triglycerides (88), Cholesterol (178), HDL (97) LDL (63) -RUQ U/S: Dilated Common Bile Duct w/o Gallstones -MRCP: Pending on 06/16 -Strongly consider CT of ABD/Pelvis if no improvement in symptoms or suspicion of pancreatic pseudocyst arises 2. Macrocytic Anemia, likely 2/2 to EtOH Abuse Disorder -Rehydrated w/ LR and Banana Bag -H.2 -Hct: 41.9 -Consider ongoing supplementation w/ oral Folate, Thiamine, B12 3. EtOH Abuse Disorder -ASE Protocol -Pt reports last drink was over 1 week ago -Monitor for signs of withdrawal 4. HTN -Likely secondary to pain on presentation -158/89 on 06/16 -Continue to monitor 5. Hyponatremia -Na: 130 > 129 -Possibly chronic due to intake of EtOH and poor nutrition. -Continue fluid resuscitation 6. Thrombocytopenia -Plt: 66 -Likely secondary to alcohol use -Assess for bleeding risks -Continue to monitor Code: FULL VTE PPx: None Activity: Ambulation/Walking Program Ordered GI PPx: None Dispo: Patient currently admitted to Medical Floor for monitoring. Continue with fluid and electrolyte replacement and monitor for signs of withdrawal. Control pain and keep NPO. Expected LOS > 48H Addendum - Attending - Attending Attestation Date/Time: 06/16/192036 I personally evaluated the patient and discussed the management with Dr. Frey. I agree with the History, Examination, Assessment and Plan documented above with any addition or exceptions noted below. Acute pancreatits- pain persists so continue IVF and NPO status and pain control EtOh abuse- cessation counseling Dilated CBD- MRCP consistent but no obvious cause identified Mildly elevated bp- most likely secondary to pain. If persistent will add anti- hypertensives thrombocytopenia- secondary to alcohol abuse and folate deficiency Folate deficiency-replace once tolerating po.
[2019-06-16] MEDS: Nicotine 14 MG PATCH TD SCH (07:02)
--- NOTE | 2019-06-16 11:12 | MRI ---
EXAM: MRI Abdomen WO Con PROVIDED CLINICAL HISTORY: Dilated common duct noted on recent gallbladder ultrasound examination. COMPARISON: Right upper quadrant ultrasound 06/15/[address] abdomen on 12/23/2018. FINDINGS: There is suggestion of mild fatty infiltration of the liver which was also seen on prior exams. No fo elizabeth hepatic lesion or signal abnormality is otherwise seen within the liver. The liver is enlarged in craniocaudal dimensions measuring 18 cm. As noted on recent gallbladder ultrasound, the common martinez t is mildly dilated for patient's age measuring 7 mm in diameter. No significant intrahepatic biliary ductal dilatation is appreciated. No filling defect is seen within the common duct. There is a low insertion of the cystic duct on the common duct which is a normal variant. Pancreatic duct is the upper limits of normal. No pancreatic or peripancreatic fluid collection is seen. Minimal amount of fluid is seen adjacent to the distal body and tail of the pancreas which may be attributable to mild pancreatitis. Correlation with laboratory values is recommended. The gallbladder is mildly distended. There are is a trace amount of fluid adjacent to the inferior as pect right hepatic lobe as well as adjacent to the gallbladder which is overall nonspecific. No gallbladder wall edema or thickening is appreciated. The spleen, bilateral adrenal glands, and kidneys demonstrate a normal CT appearance. IMPRESSION: 1. Mild dilatation of the common duct of uncertain etiology which measures approximately 7 mm. No dieudonne ling defect is seen within the common duct to suggest a common duct calculus. 2. Minimal amount of fluid adjacent to the body and tail of the pancreas which could be related to mi ld pancreatitis. Correlation with laboratory values is recommended. 3. Mild fatty infiltration of the liver. Liver is also enlarged in craniocaudal dimensions measuring 18 cm. 4. Trace amount of free fluid adjacent to the inferior aspect of the right hepatic lobe and adjacent to the medial aspect gallbladder fundus.
--- NOTE | 2019-06-16 18:35 | PRG ---
DATE OF SERVICE: 06/16/2019 REASON FOR CONSULTATION: Acute on chronic pancreatitis. SUBJECTIVE: The patient states that her abdominal pain continues today reaching a severity of 8/10 to 10/10, despite the pain medication given to her every 4 hours. She continues to have no appetite related to this particular abdominal pain; however, she has been able to receive IV fluids without difficulty, and has been increasingly urinating as a result. She does continue to have some mild nausea and did have an episode of nonbloody emesis earlier today, but otherwise denies any hematemesis, melena, hematochezia, fevers, or chills. OBJECTIVE: VITAL SIGNS: Temperature 98.1, pulse 82, blood pressure 153/93, respiratory rate 18, and saturating 99% on room air. GENERAL: The patient is lying in bed, in no acute distress. Alert and oriented x4. CARDIOVASCULAR: Regular rate and rhythm. RESPIRATORY: Clear to auscultation bilaterally. ABDOMEN: Normoactive bowel sounds. Soft, nondistended. Tenderness to palpation in the right upper quadrant, mid epigastric, and left upper quadrant. EXTREMITIES: No cyanosis, clubbing, or edema. LABORATORY DATA: CBC with a white blood cell count of 8, hemoglobin 12.5, hematocrit 36.6, and platelets 66. Chemistry with a sodium of 129, potassium 3.7, chloride 100, CO2 of 19, BUN less than 4, creatinine 0.51, and glucose 76. IMAGING DATA: MRCP was obtained on June 16, 2019, which showed suggestion of mild fatty infiltration within the liver consistent with prior exam; however, there was no focal hepatic lesion to suggest liver malignancy. The common bile duct was mildly dilated at approximately 7 mm in diameter, but no significant intrahepatic biliary ductal dilatation was seen as well as no filling defect within the common bile duct. The pancreatic duct was in the upper limits of normal. There was a minimal amount of fluid seen adjacent to the distal body and tail of the pancreas, which could be attributed to mild pancreatitis. The gallbladder remained mildly distended with a trace amount of fluid adjacent to the inferior aspect of the right hepatic lobe, but no gallbladder wall edema or thickening was appreciated. ASSESSMENT AND PLAN: The patient is a 38-year-old female with past medical history of impaired fasting glucose, alcohol abuse, and recurrent pancreatitis, presenting with increased midepigastric abdominal pain consistent with an acute episode of chronic pancreatitis. Acute on chronic pancreatitis. The patient has a longstanding history of recurrent episodes of pancreatitis, characterized as increasing midepigastric abdominal pain with sometimes radiation to her back as well as to the upper abdomen with her most recent hospitalization being in November of 2018, now presenting with a recurrence of the same abdominal pain with an elevated lipase and imaging consistent with mild acute pancreatitis. She continues to consume alcohol and smoke tobacco further contributing to possible episodes of pancreatitis. Currently, she does not show any evidence of end-organ dysfunction, pseudocyst formation, or even pancreatic necrosis making this acute uncomplicated pancreatitis. RECOMMENDATIONS: 1. Given the patient's continued abdominal pain, I would continue her on n.p.o. status for the rest of today, but start the patient on a clear liquid diet starting tomorrow. 2. We would continue IV fluid resuscitation at 150 mL/h, but decreased to 100 mL/h once tolerating clear liquids. 3. Pain control per primary team. We will continue to follow. Please call with any questions. Job ID: [id number]
[2019-06-17] MEDS: Morphine 4 MG/ML VIAL SLOW IVP PRN (04:00)
--- NOTE | 2019-06-17 05:30 | PDOC.FM ---
- Subjective Subjective: Pt c/o 9/10 upper abdominal pain that radiates to her back. + Nausea - vomiting overnight or yesterday. No BM during Hx stay. - Objective MAR Reviewed: Yes Vital Signs & Weight: Vital Signs (12 hours) Temp Pulse Resp BP BP Pulse Ox 06/16/19 21:00 136/84 06/16/19 20:00 98.1 F 96 18 136/84 99 Weight Admit Weight 54.885 kg Weight 55.367 kg I&O: 06/15/19 06/16/19 06/17/19 06:59 06:59 06:59 Intake Total 1069 1882 Output Total 500 Balance 1069 1382 Result Diagrams: 06/17/19 08:30 06/17/19 08:30 Phys Exam - Physical Examination Constitutional: NAD HEENT: moist MMs, sclera anicteric Neck: no nodes, no JVD, supple, full ROM Respiratory: no wheezing, no rales, no rhonchi, clear to auscultation bilateral Cardiovascular: RRR, no significant murmur, no rub Gastrointestinal: soft, no distention, positive bowel sounds Epigastric Tenderness to very light palpation. Musculoskeletal: no edema, pulses present Neurological: non-focal, normal sensation, moves all 4 limbs Lymphatic: no nodes Psychiatric: normal affect, A&O x 3 Skin: no rash, normal turgor, cap refill <2 seconds Dx/Plan (1) Acute on chronic pancreatitis Code(s): K85.90 - ACUTE PANCREATITIS WITHOUT NECROSIS OR INFECTION, UNSP; K86.1 - OTHER CHRONIC PANCREATITIS Status: Acute (2) Nausea & vomiting Code(s): R11.2 - NAUSEA WITH VOMITING, UNSPECIFIED Status: Acute (3) Alcohol use disorder Code(s): [id number] - Status: Chronic (4) Hepatic steatosis Code(s): K76.0 - FATTY (CHANGE OF) LIVER, NOT ELSEWHERE CLASSIFIED Status: Chronic (5) Thrombocytopenia Code(s): D69.6 - THROMBOCYTOPENIA, UNSPECIFIED Status: Acute (6) Hyponatremia Code(s): E87.1 - HYPO-OSMOLALITY AND HYPONATREMIA Status: Chronic - Plan Plan: 1. Pancreatitis, Acute on Chronic -History of ABD pain with characteristic radiation pattern, fatty food aversion , and elevated Lipase (> 500) -LR @ 150 mL/hr after Banana Bag -Pain control: Fentanyl 25 mcg Q4H WHITNEY, Q2H PRN for breakthrough pain. -Zofran for nausea and vomiting -NPO (Meds with Sips of Water) -Etiology unknown, EtOH abuse suspected -Plasma EtOH: Negative -Lipid Panel: Triglycerides (88), Cholesterol (178), HDL (97) LDL (63) -RUQ U/S: Dilated Common Bile Duct w/o Gallstones -MRCP: Mildly dilated CBD at 7 mm. No evidence of stone or obstruction of CBD. Minimal fluid adjacent to body/tail of pancreas. Mild fatty infiltration of Liver. Liver enlarged at 18 cm Craniocaudal dimensions. Free Fluid adjacent to R hepatic lobe. -Strongly consider CT of ABD/Pelvis if no improvement in symptoms or suspicion of pancreatic pseudocyst arises 2. EtOH Abuse Disorder -ASE Protocol -Pt reports last drink was over 1 week ago -Monitor for signs of withdrawal -elevated MCV, likely 2/2 to EtOH Abuse Disorder -Rehydrated w/ LR and Banana Bag -H.2 -Hct: 41.9 -Consider ongoing supplementation w/ oral Folate, Thiamine, B12 3. HTN -Likely secondary to pain on presentation -158/89 - 136/84 -Continue to monitor 4. Hyponatremia -Na: 130 > 129 -Possibly chronic due to intake of EtOH and poor nutrition. -Continue fluid resuscitation 5. Thrombocytopenia -Plt: 66 -Likely secondary to alcohol use -Assess for bleeding risks -Continue to monitor 6. Alcoholic Steatohepatitis - fatty infiltration of liver on MRCP. - Enlarged liver span of 18 cm. - Free Fluid around R hepatic lobe. 7. Alcohol use disorder. - Pt counseled on alcohol use and cessation - Pt states she is ready to stop drinking. Code: FULL VTE PPx: Ambulation/Walking Program Ordered GI PPx: None Dispo: Patient currently admitted to Medical Floor for monitoring. Continue with fluid and electrolyte replacement and monitor for signs of alcohol withdrawal. Control pain and keep NPO. Expected LOS > 48H Addendum - Attending - Attending Attestation Date/Time: 06/17/19 8533 I personally evaluated the patient and discussed the management with Dr. Main. I agree with the History, Examination, Assessment and Plan documented above with any addition or exceptions noted below. Patient here for recurrent alcoholic pancreatitis. She is tolerating water and ice chips well. Continues to have abdominal pain, though BISAP score 0 and minimal inflammation on MRI. She will be continued on CLD, will start with some PO pain control. ADAT. GI on board.
[2019-06-17] MEDS ORDERED: Fentanyl 100 MCG/2 ML VIAL SLOW IVP PRN (07:18)
[2019-06-17] MEDS ORDERED: Fentanyl 100 MCG/2 ML VIAL SLOW IVP SCH (07:30)
[2019-06-17] MEDS: Nicotine 14 MG PATCH TD SCH (07:35)
[2019-06-17] MEDS: Lactated Ringer's 1,000 ML IV SCH ×4 (07:43→22:33)
[2019-06-17] MEDS ORDERED: Morphine 4 MG/ML VIAL SLOW IVP PRN (08:07)
[2019-06-17] MEDS ORDERED: HYDROcodone/Acetaminophen 5/325 mg Tablet PO PRN (08:10)
[2019-06-17 08:41] LABS: Hemoglobin 12.8 g/dL (12.0-16.0); Mean Corpuscular HGB CONC 34.4 g/dL (32.0-36.0); Mean Corpuscular Hemoglobin 35.8 pg (27.0-31.0); Mean Platelet Volume 8.6 fL (7.4-10.4); Platelet Count 86 thou/uL (130-400); RBC Distribution Width 12.7 % (11.5-14.5); Red Blood Cell (RBC) Count 3.58 mill/uL (4.20-5.40)
[2019-06-17] MEDS: Ondansetron PF 4 MG/2 ML Vial IVP PRN (09:01)
[2019-06-17] MEDS: FOLIC ACID SC SCH (09:02)
[2019-06-17 09:07] LABS: ALT (SGPT) 18 U/L (8-55); AST (SGOT) 21 U/L (5-34); Albumin 3.5 g/dL (3.5-5.0); Alkaline Phosphatase 38 U/L (40-150); Anion Gap 19 mmol/L (10-20); BUN (Urea Nitrogen) Less than 4 mg/dL (7.0-18.7); Bilirubin, Total 0.4 mg/dL (0.2-1.2); Calc. Creatinine Clearance 121 mL/min (70-130); Calcium 9.3 mg/dL (7.8-10.44); Carbon Dioxide 19 mmol/L (22-29); Chloride 97 mmol/L (98-107); Estimated GFR-MDRD Greater than 90; Globulin 2.6 g/dL (2.4-3.5); Glucose 69 mg/dL (70-105); Potassium 3.5 mmol/L (3.5-5.1); Protein, Total 6.1 g/dL (6.0-8.3); Sodium 131 mmol/L (136-145)
[2019-06-17 09:42] LABS: MDiff Complete? YES
[2019-06-17 09:43] LABS: Band 5 % (5-11); Eosinophils 2 % (0-10); Lymphocytes 24 % (21-51); Monocytes 4 % (0-10); Neutrophil 65 % (42-75); Platelet Morphology Comment Appears Decreased; RBC Morphology Normal
[2019-06-17] MEDS: HYDROcodone/Acetaminophen 10/325 mg Tablet PO PRN ×3 (11:57→21:17)
[2019-06-17] MEDS: Morphine 2 MG/ML SYRINGE SLOW IVP PRN ×3 (14:09→23:52)
[2019-06-18] MEDS: HYDROcodone/Acetaminophen 10/325 mg Tablet PO PRN ×6 (01:29→22:05)
[2019-06-18] MEDS: Morphine 2 MG/ML SYRINGE SLOW IVP PRN ×6 (02:01→23:04)
[2019-06-18] MEDS: Ondansetron ODT 4 MG TAB PO PRN (02:02)
[2019-06-18] MEDS: Lactated Ringer's 1,000 ML IV SCH ×3 (05:31→15:39)
[2019-06-18 05:42] LABS: ALT (SGPT) 18 U/L (8-55); AST (SGOT) 19 U/L (5-34); Albumin 3.3 g/dL (3.5-5.0); Alkaline Phosphatase 37 U/L (40-150); Anion Gap 11 mmol/L (10-20); BUN (Urea Nitrogen) Less than 4 mg/dL (7.0-18.7); Bilirubin, Total 0.4 mg/dL (0.2-1.2); Calc. Creatinine Clearance 123 mL/min (70-130); Calcium 9.5 mg/dL (7.8-10.44); Carbon Dioxide 25 mmol/L (22-29); Chloride 98 mmol/L (98-107); Estimated GFR-MDRD Greater than 90; Globulin 2.6 g/dL (2.4-3.5); Glucose 106 mg/dL (70-105); Protein, Total 5.9 g/dL (6.0-8.3); Sodium 131 mmol/L (136-145)
[2019-06-18 05:47] LABS: Band 2 % (5-11); Eosinophils 4 % (0-10); Hemoglobin 12.3 g/dL (12.0-16.0); Lymphocytes 29 % (21-51); MDiff Complete? YES; Mean Corpuscular HGB CONC 35.7 g/dL (32.0-36.0); Mean Corpuscular Hemoglobin 37.1 pg (27.0-31.0); Mean Platelet Volume 8.4 fL (7.4-10.4); Monocytes 10 % (0-10); Neutrophil 55 % (42-75); Platelet Count 117 thou/uL (130-400); Platelet Morphology Comment Appears Decreased; Potassium 2.9 mmol/L (3.5-5.1); RBC Distribution Width 12.8 % (11.5-14.5); Red Blood Cell (RBC) Count 3.31 mill/uL (4.20-5.40); White Blood Cell (WBC) Count 5.6 thou/uL (4.8-10.8)
--- NOTE | 2019-06-18 06:02 | PDOC.FM ---
- Subjective Subjective: Pt is walking in the hallway this morning. She states her pain is much better, but was unable to completely tolerate clears yesterday. She will try and advance her diet more today. Denies vomiting. Low K+ 2.9 this morning. - Objective MAR Reviewed: Yes Vital Signs & Weight: Vital Signs (12 hours) Temp Pulse Resp BP BP Pulse Ox 06/18/19 04:39 153/96 H 06/18/19 04:00 98.2 F 84 18 153/96 H 97 06/18/19 01:00 166/105 H 06/18/19 00:00 98.3 F 85 18 166/105 H 99 06/17/19 20:00 98.2 F 88 18 148/102 H 99 Weight Admit Weight 54.885 kg Weight 55.367 kg I&O: 06/16/19 06/17/19 06/18/19 06:59 06:59 06:59 Intake Total 1882 2300 240 Output Total 500 Balance 1382 2300 240 Result Diagrams: 06/18/19 05:02 06/18/19 05:02 Phys Exam - Physical Examination Constitutional: NAD HEENT: PERRLA, moist MMs, sclera anicteric Neck: no nodes, no JVD, supple, full ROM Respiratory: no wheezing, no rales, no rhonchi, clear to auscultation bilateral Cardiovascular: RRR, no significant murmur, no rub Gastrointestinal: soft, no distention, positive bowel sounds Epigastric tenderness to palpation. Musculoskeletal: no edema, pulses present Neurological: non-focal, normal sensation, moves all 4 limbs Lymphatic: no nodes Psychiatric: normal affect, A&O x 3 Skin: no rash, normal turgor, cap refill <2 seconds Dx/Plan (1) Acute on chronic pancreatitis Code(s): K85.90 - ACUTE PANCREATITIS WITHOUT NECROSIS OR INFECTION, UNSP; K86.1 - OTHER CHRONIC PANCREATITIS Status: Acute (2) Nausea & vomiting Code(s): R11.2 - NAUSEA WITH VOMITING, UNSPECIFIED Status: Acute (3) Alcohol use disorder Code(s): IXJ2950 - Status: Chronic (4) Hepatic steatosis Code(s): K76.0 - FATTY (CHANGE OF) LIVER, NOT ELSEWHERE CLASSIFIED Status: Chronic (5) Thrombocytopenia Code(s): D69.6 - THROMBOCYTOPENIA, UNSPECIFIED Status: Acute (6) Hyponatremia Code(s): E87.1 - HYPO-OSMOLALITY AND HYPONATREMIA Status: Chronic - Plan Plan: 1. Acute Pancreatitis, with recurrence -History of ABD pain with characteristic radiation pattern, fatty food aversion , etoh use, and elevated Lipase (> 500). BISAP score 0. -LR @ 150 mL/hr, pt did not tolerate clears very well on 06/17. Plan to monitor for toleration of clear liquids more today and decrease IVF to 100 ml/hr. -Pain control: [place] 10/325 Q4H WHITNEY, Morphine Q4H PRN for breakthrough pain. -Zofran for nausea and vomiting -Etiology unknown, EtOH abuse suspected -Plasma EtOH: Negative -Lipid Panel: Triglycerides (88), Cholesterol (178), HDL (97) LDL (63) -RUQ U/S: Dilated Common Bile Duct w/o Gallstones -MRCP: Mildly dilated CBD at 7 mm. No evidence of stone or obstruction of CBD. Minimal fluid adjacent to body/tail of pancreas. Mild fatty infiltration of Liver. Liver enlarged at 18 cm Craniocaudal dimensions. Free Fluid adjacent to R hepatic lobe. -GI recs: consider CT of ABD/Pelvis if no improvement in symptoms or suspicion of pancreatic pseudocyst arises after 1 week without resolution of symptoms. 2. EtOH Abuse Disorder -ASE Protocol -Pt reports last drink was over 1 week ago from admission -Monitor for signs of withdrawal -elevated MCV, likely 2/2 to EtOH Abuse Disorder -Rehydrated w/ LR and Banana Bag -H.2 -Hct: 41.9 -Consider ongoing supplementation w/ oral Folate, Thiamine, B12 3. HTN -Likely secondary to pain on presentation -158/89 - 136/84 -Continue to monitor 4. Hyponatremia -Na: 130 > 129 > 131 -Possibly chronic due to intake of EtOH and poor nutrition. -Continue fluid resuscitation 5. Thrombocytopenia -Plt: 66 > 117 -Likely secondary to alcohol use -No evidence of bleeding -Continue to monitor 6. Alcoholic Steatohepatitis - fatty infiltration of liver on MRCP. - Enlarged liver span of 18 cm. - Free Fluid around R hepatic lobe. 7. Alcohol use disorder. - Pt counseled on alcohol use and cessation - Pt states she is ready to stop drinking. 8. Hypokalemia - K 2.9 - Replaced with 40 meq K-dur X2 for today. Code: FULL VTE PPx: Ambulation/Walking Program Ordered GI PPx: None Diet: Advance to clears and as tolerated to low fat foods. Dispo: Continue with fluid and electrolyte replacement and monitor for signs of alcohol withdrawal. Control pain. Advancing diet as tolerated. Decreasing frequency of IV pain medications. Expected LOS > 48H Addendum - Attending - Attending Attestation Date/Time: 06/18/19 7791 I personally evaluated the patient and discussed the management with Dr. Main. I agree with the History, Examination, Assessment and Plan documented above with any addition or exceptions noted below. Patient's pain more improved today. She continues on PO pain control with occasional IV meds. Discussed the need to work on advancing diet today. She need K repletion and recheck. If tolerating clears, can consider d/c later today as she is ambulating without significant pain.
[2019-06-18] MEDS ORDERED: Potassium Chloride 20 MEQ TAB PO SCH ×3 (08:00→12:00)
[2019-06-18] MEDS: FOLIC ACID SC SCH (08:17)
[2019-06-18] MEDS: Nicotine 14 MG PATCH TD SCH (08:18)
[2019-06-18] MEDS ORDERED: Magnesium Sulfate 2 GM in Sodium Chloride 0.9% 100 ML IVPB SCH (09:15)
[2019-06-18] MEDS ORDERED: Magnesium 2 GM/50 ML 2 GM in Premix Bag 1 BAG IVPB SCH (10:00)
[2019-06-18 14:44] LABS: Anion Gap 14 mmol/L (10-20); BUN (Urea Nitrogen) Less than 4 mg/dL (7.0-18.7); Calc. Creatinine Clearance 109 mL/min (70-130); Calcium 9.1 mg/dL (7.8-10.44); Carbon Dioxide 24 mmol/L (22-29); Chloride 99 mmol/L (98-107); Estimated GFR-MDRD Greater than 90; Glucose 130 mg/dL (70-105); Magnesium 1.7 mg/dL (1.6-2.6); Potassium 3.7 mmol/L (3.5-5.1); Sodium 133 mmol/L (136-145)
[2019-06-18] MEDS: Ondansetron PF 4 MG/2 ML Vial IVP PRN (15:06)
[2019-06-19] MEDS: HYDROcodone/Acetaminophen 10/325 mg Tablet PO PRN ×2 (02:09→06:06)
[2019-06-19] MEDS: Lactated Ringer's 1,000 ML IV SCH (02:11)
[2019-06-19] MEDS: Morphine 2 MG/ML SYRINGE SLOW IVP PRN (02:53)
[2019-06-19] MEDS ORDERED: Lactated Ringer's 1,000 ML IV SCH (05:44)
--- NOTE | 2019-06-19 05:48 | PDOC.FM ---
- Subjective Subjective: No acute overnight events. Pt's nausea is better today. No vomiting. No BM since admission. Abdominal pain is better, slightly present. Tolerating clears better each time she tries to eat. Pt states she feels comfortable going home today. - Objective MAR Reviewed: Yes Vital Signs & Weight: Vital Signs (12 hours) Temp Pulse Resp BP BP Pulse Ox 06/19/19 01:35 146/95 H 06/19/19 01:25 97.7 F 87 18 146/95 H 97 06/18/19 21:00 128/82 06/18/19 20:00 98.2 F 86 18 128/82 98 Weight Admit Weight 54.885 kg Weight 55.367 kg I&O: 06/17/19 06/18/19 06/19/19 06:59 06:59 06:59 Intake Total 2300 2280 660 Balance 2300 2280 660 Result Diagrams: 06/18/19 05:02 06/19/19 05:48 Phys Exam - Physical Examination Constitutional: NAD HEENT: PERRLA, moist MMs, sclera anicteric Neck: no nodes, no JVD, supple, full ROM Respiratory: no wheezing, no rales, no rhonchi, clear to auscultation bilateral Cardiovascular: RRR, no significant murmur, no rub Gastrointestinal: soft, no distention, positive bowel sounds epigastric tenderness to palpation, improved from prior examinations. Musculoskeletal: no edema, pulses present Neurological: non-focal, normal sensation, moves all 4 limbs Lymphatic: no nodes Psychiatric: normal affect, A&O x 3 Skin: no rash, normal turgor, cap refill <2 seconds Dx/Plan (1) Acute on chronic pancreatitis Code(s): K85.90 - ACUTE PANCREATITIS WITHOUT NECROSIS OR INFECTION, UNSP; K86.1 - OTHER CHRONIC PANCREATITIS Status: Acute (2) Nausea & vomiting Code(s): R11.2 - NAUSEA WITH VOMITING, UNSPECIFIED Status: Resolved (3) Alcohol use disorder Code(s): [id number] - Status: Chronic (4) Hepatic steatosis Code(s): K76.0 - FATTY (CHANGE OF) LIVER, NOT ELSEWHERE CLASSIFIED Status: Chronic (5) Thrombocytopenia Code(s): D69.6 - THROMBOCYTOPENIA, UNSPECIFIED Status: Acute (6) Hyponatremia Code(s): E87.1 - HYPO-OSMOLALITY AND HYPONATREMIA Status: Chronic - Plan Plan: 1. Acute Pancreatitis, with recurrence -History of ABD pain with characteristic radiation pattern, fatty food aversion , etoh use, and elevated Lipase (> 500). BISAP score 0. -LR decreased to 75 mL/hr, pt tolerated clears better yesterday, but still not fully. Plan to monitor for toleration of clear liquids more today and d/c IVF -Pain control: [place] 10/325 Q4H WHITNEY, Morphine Q6H PRN for breakthrough pain. -Zofran for nausea and vomiting -Etiology unknown, EtOH abuse suspected -Plasma EtOH: Negative -Lipid Panel: Triglycerides (88), Cholesterol (178), HDL (97) LDL (63) -RUQ U/S: Dilated Common Bile Duct w/o Gallstones -MRCP: Mildly dilated CBD at 7 mm. No evidence of stone or obstruction of CBD. Minimal fluid adjacent to body/tail of pancreas. Mild fatty infiltration of Liver. Liver enlarged at 18 cm Craniocaudal dimensions. Free Fluid adjacent to R hepatic lobe. -GI recs: consider CT of ABD/Pelvis if no improvement in symptoms or suspicion of pancreatic pseudocyst arises after 1 week without resolution of symptoms. 2. EtOH Abuse Disorder -ASE Protocol -Pt reports last drink was over 1 week ago from admission -Monitor for signs of withdrawal -elevated MCV, likely 2/2 to EtOH Abuse Disorder -Rehydrated w/ LR and Banana Bag -H.2 -Hct: 41.9 -Consider ongoing supplementation w/ oral Folate, Thiamine, B12 3. HTN -Likely secondary to pain on presentation -158/89 - 120's/80's -Continue to monitor, suggest follow up with PCP at discharge for chronic management. 4. Hyponatremia -Na: 130 > 129 > 131 > 133 -Possibly chronic due to intake of EtOH and poor nutrition. -Continue fluid resuscitation 5. Thrombocytopenia -Plt: 66 > 117 -Likely secondary to alcohol use -No evidence of bleeding -Continue to monitor 6. Alcoholic Steatohepatitis - fatty infiltration of liver on MRCP. - Enlarged liver span of 18 cm. - Free Fluid around R hepatic lobe. 7. Alcohol use disorder. - Pt counseled on alcohol use and cessation - Pt states she is ready to stop drinking. 8. Hypokalemia, improved - K 2.9 --> 3.7 - Replaced with 40 meq K-dur X2 06/18. 9. Hypomagnesemia, improved - Mg 1.1 --> 1.7 --> 1.4 - Gave 1 g Mag sulfate 06/19 AM. Code: FULL VTE PPx: Ambulation/Walking Program Ordered GI PPx: None Diet: Advance to clears and as tolerated to low fat foods. Dispo: Continue with fluid and electrolyte replacement and monitor for signs of alcohol withdrawal. Control pain. Advancing diet as tolerated. Decreasing frequency of IV pain medications. Expected LOS > 48H Anticipate discharge home today 06/19. Addendum - Attending - Attending Attestation Date/Time: 06/19/19 3130 I personally evaluated the patient and discussed the management with Dr. Main. I agree with the History, Examination, Assessment and Plan documented above with any addition or exceptions noted below. Patient doing well. Continues to complain of pain but nursing reports she is tolerating her diet well. She will be discharged today as she is medically stable from her very minor pancreatic inflammation due to her alcohol.
[2019-06-19 07:05] LABS: Anion Gap 12 mmol/L (10-20); BUN (Urea Nitrogen) Less than 4 mg/dL (7.0-18.7); Calc. Creatinine Clearance 115 mL/min (70-130); Calcium 8.8 mg/dL (7.8-10.44); Carbon Dioxide 24 mmol/L (22-29); Chloride 101 mmol/L (98-107); Estimated GFR-MDRD Greater than 90; Glucose 94 mg/dL (70-105); Magnesium 1.4 mg/dL (1.6-2.6); Sodium 133 mmol/L (136-145)
[2019-06-19 07:57] VITALS: BP 136/86; TEMP 98.2
[2019-06-19] MEDS ORDERED: Morphine 2 MG/ML SYRINGE SLOW IVP PRN (08:10)
[2019-06-19] MEDS: FOLIC ACID SC SCH (08:42)
[2019-06-19] MEDS: Nicotine 14 MG PATCH TD SCH (08:45)
[2019-06-19] MEDS: Acetaminophen/Codeine 30-300mg Tablet PO PRN ×2 (10:17→13:53)
--- NOTE | 2019-06-20 09:29 | DIS ---
DATE OF ADMISSION: 06/14/2019 DATE OF DISCHARGE: 06/19/2019 RESIDENT: Carline Main DO ADMITTING ATTENDING: Dr. Jay. CONSULTS: Case Management and Gastroenterology, Dr. Davalos. PROCEDURES PERFORMED: MRCP showed mild dilation of common bile duct with uncertain etiology measuring about 7 mm in diameter and minimal amount of fluid adjacent to the body of the tail of the pancreas, which could be related to mild pancreatitis. Mild fatty infiltration of the liver. Liver is also enlarged craniocadually, dimensions measuring 18 cm. Trace amount of free fluid adjacent to the inferior aspect of the right hepatic lobe and adjacent to the medial aspect of the gallbladder fundus. DIAGNOSES: 1. Acute pancreatitis. 2. Recurrent pancreatitis. 3. Alcohol abuse disorder. 4. Hypertension. 5. Hyponatremia. 6. Thrombocytopenia. 7. Alcoholic steatohepatitis. 8. Hypokalemia. 9. Hypomagnesemia. DISCHARGE MEDICATIONS: 1. Zofran 4 mg p.o. ODT q.6 hours p.r.n. for nausea. 2. Tylenol No. 3 of 300/30 mg 15 tabs total, take one pill q.6 hours p.r.n. for pain. HISTORY OF PRESENT ILLNESS/HOSPITAL COURSE: The patient was admitted for intractable nausea and vomiting, found to have acute pancreatitis. He was treated with IV fluid hydration, pain control and n.p.o. The patient was gradually advanced to clear diet, tolerating clear liquid diet well. In fact, was drinking Dr Amato in her hospital room the morning of 06/19/2019. Pain control was much better throughout the hospital course and gradually weaned down off IV pain medication. Patient's vitals were stable. DISPOSITION: Stable for discharge. DISCHARGE INSTRUCTIONS: 1. Location: Home. 2. Diet: Low fat diet and advance as tolerated. No alcohol use. 3. Activity: As tolerated. 4. Followup: Follow up with primary care physician in one weeks time. Job ID: [id number]
== END 2019-06-19 17:20 | disposition home or self-care (01) | DRG 439 ==
LOC: ERS 20:04 → OBSVTOIN 23:42 → 2SW 23:42 → T4-A 06-15 12:36
PROVIDERS: ADMIT Family Medicine; ATTEND Family Medicine
DX: K85.20 Alcohol induced acute pancreatitis without necrosis or infection (principal); E87.1 Hypo-osmolality and hyponatremia; F10.188 Alcohol abuse with other alcohol-induced disorder; K86.0 Alcohol-induced chronic pancreatitis; J30.2 Other seasonal allergic rhinitis; D69.59 Other secondary thrombocytopenia; E53.8 Deficiency of other specified B group vitamins; D75.89 Other specified diseases of blood and blood-forming organs; D63.8 Anemia in other chronic diseases classified elsewhere; K76.0 Fatty (change of) liver, not elsewhere classified; Z88.0 Allergy status to penicillin; Z88.5 Allergy status to narcotic agent; Z88.8 Allergy status to other drugs, medicaments and biological substances; Z91.048 Other nonmedicinal substance allergy status; Z79.899 Other long term (current) drug therapy; Z87.442 Personal history of urinary calculi; Z98.51 Tubal ligation status; Z91.040 Latex allergy status
CPT/HCPCS: 36415; 74181; 76705; 80048; 80053; 80061; 80307; 81001; 82607; 82746; 83615; 83690; 83735; 84100; 85025; 96361; 96374; 96375; 96376; J2270; J2405; J3010; J3411; J3475; J3490; J7042; Q0162

== ENCOUNTER 2019-12-24 21:21 | Emergency (ER) | payer SELFPAY ==
[2019-12-24] MEDS ORDERED: Ondansetron PF 4 MG/2 ML Vial ONE ×2 (21:43→22:54)
[2019-12-24 22:29] LABS: Bacteria/HPF None Seen HPF (None Seen); Bilirubin Negative (Negative); Blood, Urine Negative (Negative); Clarity Clear (Clear); Glucose, Urine (Dipstick) Normal (Negative); Leukocyte Negative Leu/uL (Negative); Nitrite Negative (Negative); Protein, Urine (Dipstick) 70 mg/dL (Neg-Trace); RBC/HPF 0-3 HPF (0-3); Squamous Epithelial 0-3 HPF (0-3); Urobilinogen 3 mg/dL (Less than 2)
[2019-12-24 22:37] LABS: ALT (SGPT) 25 U/L (8-55); AST (SGOT) 32 U/L (5-34); Alcohol Less than 10 mg/dL (Less than 10); Alkaline Phosphatase 49 U/L (40-110); Anion Gap 27 mmol/L (10-20); BUN (Urea Nitrogen) 10 mg/dL (7.0-18.7); Bilirubin, Total 1.3 mg/dL (0.2-1.2); CK (CPK) 101 U/L (29-168); Calc. Creatinine Clearance 0 mL/min (70-130); Calcium 10.2 mg/dL (7.8-10.44); Carbon Dioxide 20 mmol/L (22-29); Chloride 93 mmol/L (98-107); Estimated GFR-MDRD Greater than 90; Globulin 3.3 g/dL (2.4-3.5); Glucose 77 mg/dL (70-105); Lipase 136 U/L (8-78); Potassium 4.2 mmol/L (3.5-5.1); Protein, Total 8.3 g/dL (6.0-8.3); Sodium 136 mmol/L (136-145)
[2019-12-24 22:39] LABS: #Eosinphils 0.1 thou/uL (0.0-0.7); #Lymphocytes 1.6 thou/uL (1.20-3.40); #Monocytes 1.1 thou/uL (0.11-0.59); #Neutrophils 7.8 thou/uL (1.40-6.50); %Basophils 0.4 % (0.0-1.0); %Eosinophils 0.9 % (0.0-10.0); %Lymphocytes 15.5 % (21.0-51.0); %Neutrophils 73.2 % (42.0-75.0); Hemoglobin 15.7 g/dL (12.0-16.0); Mean Corpuscular HGB CONC 35.1 g/dL (32.0-36.0); Mean Corpuscular Hemoglobin 35.7 pg (27.0-31.0); Mean Platelet Volume 9.9 fL (7.4-10.4); Platelet Count 122 thou/uL (130-400); RBC Distribution Width 11.9 % (11.5-14.5); Red Blood Cell (RBC) Count 4.39 mill/uL (4.20-5.40); White Blood Cell (WBC) Count 10.6 thou/uL (4.8-10.8)
[2019-12-24] MEDS ORDERED: Morphine 4 MG/ML VIAL ONE (22:53)
== END 2019-12-24 23:48 | disposition home or self-care (01) ==
LOC: ERS 21:21
DX: K86.0 Alcohol-induced chronic pancreatitis (principal); F10.10 Alcohol abuse, uncomplicated; F17.210 Nicotine dependence, cigarettes, uncomplicated
CPT/HCPCS: 80053; 80307; 81003; 81015; 82550; 83690; 84484; 85025; 93005; 96361; 96374; 96375; 96376; J2270; J2405

== ENCOUNTER 2019-12-26 04:55 | Inpatient (IN) | payer SELFPAY ==
[2019-12-26] MEDS ORDERED: Ondansetron PF 4 MG/2 ML Vial ONE (05:18)
[2019-12-26] MEDS ORDERED: Morphine 4 MG/ML VIAL ONE ×2 (05:18→06:31)
[2019-12-26 05:26] LABS: #Basophils 0.1 thou/uL (0.0-0.2); #Eosinphils 0.1 thou/uL (0.0-0.7); #Lymphocytes 1.7 thou/uL (1.20-3.40); #Neutrophils 8.1 thou/uL (1.40-6.50); %Basophils 0.5 % (0.0-1.0); %Eosinophils 1.2 % (0.0-10.0); %Lymphocytes 15.7 % (21.0-51.0); %Monocytes 9.2 % (0.0-10.0); %Neutrophils 73.4 % (42.0-75.0); Hemoglobin 15.1 g/dL (12.0-16.0); Mean Corpuscular HGB CONC 33.7 g/dL (32.0-36.0); Mean Corpuscular Hemoglobin 34.1 pg (27.0-31.0); Mean Platelet Volume 8.9 fL (7.4-10.4); Platelet Count 149 thou/uL (130-400); RBC Distribution Width 11.6 % (11.5-14.5); Red Blood Cell (RBC) Count 4.43 mill/uL (4.20-5.40); White Blood Cell (WBC) Count 11.1 thou/uL (4.8-10.8)
[2019-12-26 05:30] LABS: BHCG - Serum Negative (NEGATIVE); Pregs Control Background? CLEAR/WHITE (CLR/WHITE); Pregs Control Bar Appear? YES (CONTROL BAR)
[2019-12-26 05:52] LABS: ALT (SGPT) 21 U/L (8-55); AST (SGOT) 20 U/L (5-34); Albumin 4.7 g/dL (3.5-5.0); Alkaline Phosphatase 50 U/L (40-110); Anion Gap 19 mmol/L (10-20); BUN (Urea Nitrogen) 5 mg/dL (7.0-18.7); Bilirubin, Total 0.8 mg/dL (0.2-1.2); Calc. Creatinine Clearance 0 mL/min (70-130); Carbon Dioxide 21 mmol/L (22-29); Chloride 95 mmol/L (98-107); Estimated GFR-MDRD Greater than 90; Globulin 3.4 g/dL (2.4-3.5); Glucose 101 mg/dL (70-105); Potassium 3.1 mmol/L (3.5-5.1); Protein, Total 8.1 g/dL (6.0-8.3); Sodium 132 mmol/L (136-145)
[2019-12-26 05:53] LABS: Bilirubin 1+ (Negative); Blood, Urine Negative (Negative); Clarity Turbid (Clear); Glucose, Urine (Dipstick) Normal (Negative); Leukocyte Negative Leu/uL (Negative); Mucous/LPF 1+ LPF (<2+); Nitrite Negative (Negative); Protein, Urine (Dipstick) 50 mg/dL (Neg-Trace); RBC/HPF 0-3 HPF (0-3); White Blood Cell Cast 0-3 LPF (None Seen)
[2019-12-26 05:54] LABS: Bacteria/HPF 1+ HPF (None Seen)
[2019-12-26] MEDS ORDERED: Sodium Chloride 0.9% 1,000 ML IV SCH (06:45)
[2019-12-26] MEDS ORDERED: Potassium Chloride 40 MEQ in Sodium Chloride 0.9% 250 ML 250 ML IVPB SCH (07:00)
[2019-12-26] MEDS ORDERED: hydrALAZINE 20 MG/ML VIAL SLOW IVP PRN (07:04)
--- NOTE | 2019-12-26 07:17 | HP ---
CHIEF COMPLAINT: Abdominal pain. HISTORY OF PRESENT ILLNESS: Ms. Barr is a 39-year-old three female with past medical history of frequent episodes of pancreatitis, presents to the emergency room for worsening epigastric pain, in the setting for recently admitted for pancreatitis a few days ago. The patient denies fevers or chills. She has been vomiting. She has a history of alcoholic pancreatitis. Last drink was 5 to 6 days ago. No history of alcohol withdrawal in the past. Workup in the emergency room including imaging studies showed pancreatitis. Lipase is 169. Potassium is 3.1. The patient is being admitted to the hospital for further management. PAST MEDICAL HISTORY: 1. Frequent pancreatitis, alcoholic. 2. Prediabetes ? PAST SURGICAL HISTORY: Tubal ligation. FAMILY HISTORY: Reviewed and noncontributory. SOCIAL HISTORY: The patient drinks every week. Currently, denies drug use. She smokes half pack per day. FAMILY HISTORY: Reviewed and noncontributory. HOME MEDICATIONS: None. ALLERGIES: ALLERGIC TO DEMEROL, PHENERGAN, STADOL, TORADOL, PENICILLIN, AND LATEX. REVIEW OF SYSTEMS: Review of 14 systems negative except what is mentioned in History of Present Illness. PHYSICAL EXAMINATION: GENERAL: The patient is awake, alert, in moderate distress. VITAL SIGNS: Blood pressure is 170/95, pulse is 86, respiratory rate is 20, temperature 99.4, and oxygen saturation 100% on room air. HEAD AND NECK: Normocephalic, atraumatic. Neck is supple. No JVD. CHEST: Fair bilateral air entry. HEART: S1 and S2. Regular. ABDOMEN: Soft with epigastric tenderness. Bowel sounds present. NEUROLOGIC: Awake, alert, and oriented x3. PSYCH: Normal mood. EXTREMITIES: No clubbing. No cyanosis. LABORATORY DATA: As mentioned above in History of Present Illness. ASSESSMENT: 1. Acute pancreatitis, recurrent/frequent/alcoholic. 2. Hypokalemia. 3. Elevated blood pressure. No history of hypertension. 4. Vomiting. PLAN: 1. Admit. 2. Keep n.p.o. 3. IV fluids. 4. Replace potassium. 5. Pain management. 6. Monitor and control blood pressure. 7. Reconcile home medications. 8. DVT prophylaxis, early ambulation. 9. Expected length of stay, 2 midnights or more. Job ID: [id number]
[2019-12-26] MEDS ORDERED: Potassium Chloride 10 MEQ in Premix Bag 1 BAG IVPB SCH (07:30)
--- NOTE | 2019-12-26 07:42 | CT ---
PRELIMINARY REPORT/[facility]/EMERGENCY AFTER HOURS PROCEDURE: PROCEDURE: CT Scan Abdomen and Pelvis with IV Contrast Material. HISTORY: Epigastric pain. TECHNIQUE: Axial images were performed with multiplanar reconstructions. The patient was given iodin ated contrast intravenously. The patient was not given oral contrast material. COMPARISONS: None . FINDINGS: Clear lung bases. Liver, spleen, and adrenals show no abnormality. Mild peripancreatic stranding head of the pancreas could represent mild pancreatitis with no pseudocyst. Kidneys show no masses. Bilateral extrarenal pelvises. Ureterectasis proximally on the RIGHT with prominent mucosa could be related to urinary tr act infection. No urinary tract stones visualized. Normal biliary tract. No abdominal ascites or pneumoperitoneum. Normal aorta. No lymphadenopathy. No bowel obstruction or inflammation and normal appendix. Pelvis shows no masses or free fluid. Unremarkable reproductive organs and urinary bladder. No acute bony abnormality. IMPRESSION: Possible mild pancreatitis head of the pancreas. No bowel obstruction or inflammation. Some ureterectasis on the RIGHT with prominent mucosa could be related to urinary tract infection. No other significant abnormality identified. ELECTRONICALLY SIGNED BY: Adams Quintanilla MD Dec 26, 2019 6:07:55 AM CDT This report is intended for review by the ordering physician only, in accordance of law. If you recei ve this report in error, please call [facility] at [phone]. FINAL REPORT CT ABDOMEN AND PELVIS WITH IV CONTRAST: I agree with the preliminary report given by Dr. Adams Quintanilla of [facility]. POS: URMILA
[2019-12-26] MEDS: Famotidine/PF 20 mg/2ml Vial SLOW IVP SCH ×2 (09:29→19:49)
[2019-12-26] MEDS: Morphine 4 MG/ML VIAL SLOW IVP PRN ×5 (10:38→21:54)
[2019-12-26] MEDS ORDERED: Dextrose 5% in Water 1,000 ML IV PRN (11:23)
[2019-12-26] MEDS ORDERED: HumaLOG 300 UNITS/3 ML VIAL SC PRN (11:23)
[2019-12-26] MEDS ORDERED: Dextrose 50% Abboject 50 ML SYRINGE SLOW IVP PRN (11:23)
[2019-12-26] MEDS ORDERED: D5 NS w/ 40 mEq KCl 1,000 ML IV SCH ×2 (11:30→11:34)
[2019-12-26] MEDS ORDERED: Nicotine 21 MG PATCH TD SCH (11:30)
[2019-12-26] MEDS: D5 0.9% NS w/ 20 mEq KCl 1,000 ML IV SCH ×3 (12:26→19:53)
[2019-12-26] MEDS ORDERED: Iopamidol-370 76% 500 ML 1 ML ONE (13:20)
[2019-12-26] MEDS: Ondansetron PF 4 MG/2 ML Vial IVP PRN ×2 (15:27→21:56)
[2019-12-26 16:39] VITALS: BMI 24.7
[2019-12-26 18:01] LABS: Potassium 3.9 mmol/L (3.5-5.1)
[2019-12-27] MEDS: Morphine 4 MG/ML VIAL SLOW IVP PRN ×5 (00:24→11:05)
[2019-12-27] MEDS: D5 0.9% NS w/ 20 mEq KCl 1,000 ML IV SCH ×6 (02:50→21:10)
[2019-12-27 05:12] LABS: Hemoglobin 12.7 g/dL (12.0-16.0); Mean Corpuscular HGB CONC 34.5 g/dL (32.0-36.0); Mean Corpuscular Hemoglobin 35.3 pg (27.0-31.0); Mean Platelet Volume 8.4 fL (7.4-10.4); Platelet Count 121 thou/uL (130-400); RBC Distribution Width 11.7 % (11.5-14.5); Red Blood Cell (RBC) Count 3.59 mill/uL (4.20-5.40); White Blood Cell (WBC) Count 7.7 thou/uL (4.8-10.8)
[2019-12-27 05:33] LABS: Anion Gap 12 mmol/L (10-20); BUN (Urea Nitrogen) Less than 4 mg/dL (7.0-18.7); Calc. Creatinine Clearance 122 mL/min (70-130); Calcium 8.5 mg/dL (7.8-10.44); Carbon Dioxide 22 mmol/L (22-29); Chloride 105 mmol/L (98-107); Estimated GFR-MDRD Greater than 90; Glucose 125 mg/dL (70-105); Potassium 3.6 mmol/L (3.5-5.1); Sodium 135 mmol/L (136-145)
[2019-12-27] MEDS: Nicotine 21 MG PATCH TD SCH (08:09)
[2019-12-27] MEDS: Famotidine/PF 20 mg/2ml Vial SLOW IVP SCH ×2 (08:10→20:04)
[2019-12-27] MEDS: Ondansetron PF 4 MG/2 ML Vial IVP PRN (10:06)
[2019-12-27] MEDS ORDERED: Morphine 4 MG/ML VIAL SLOW IVP PRN (11:43)
--- NOTE | 2019-12-27 15:03 | EKG ---
Test Reason : Blood Pressure : / mmHG Vent. Rate : 123 BPM Atrial Rate : 123 BPM P-R Int : 130 ms QRS Dur : 072 ms QT Int : 306 ms P-R-T Axes : 065 093 058 degrees QTc Int : 438 ms Sinus tachycardia Rightward axis Nonspecific ST abnormality Abnormal ECG Confirmed by BEE BALTAZAR DO ([id number]), video tape editor BRADY LEWIS ([id number]) on 12/27/2019 3:02:59 PM Referred By: Confirmed By:BEE BALTAZAR DO
[2019-12-27 16:15] LABS: Medtox Reader # READER 4
[2019-12-27] MEDS ORDERED: Morphine ER 30 MG TAB PO SCH ×2 (16:15→21:00)
[2019-12-27 16:17] LABS: Amphetamine Not Detected (NotDetected); Barbiturates Screen Not Detected (NotDetected); Benzodiazepine Screen Not Detected (NotDetected); Cocaine Metabolite Screen Not Detected (NotDetected); Medtox Control Line Valid? VALID (VALID); Methadone Not Detected (NotDetected); Methamphetamine Not Detected (NotDetected); Opiate Screen Detected (NotDetected); Oxycodone Screen Not Detected (NotDetected); Phencyclidine (PCP) Not Detected (NotDetected); THC/Cannabinoid Screen Not Detected (NotDetected); Tricyclic Screen Not Detected (NotDetected)
[2019-12-27] MEDS: Morphine 2 MG/ML SYRINGE SLOW IVP PRN ×2 (20:05→23:03)
--- NOTE | 2019-12-27 20:50 | PDOC.HOSPP ---
- Subjective Encounter Date: 12/27/19 Encounter Time: 10:00 Subjective: no overnight events. This morning, complains of peaks and troughs of pain, worse 10 best 10. Can't tolearte clear liquids but less nauseated. otherwise no complaints. - Objective Vital Signs & Weight: Vital Signs (12 hours) Temp Pulse Resp BP Pulse Ox 12/27/19 19:55 98.9 F 86 18 147/69 H 99 Weight Admit Weight 130 lb 11.2 oz Weight 130 lb 11.2 oz I&O: 12/26/19 12/27/19 12/28/19 06:59 06:59 06:59 Intake Total 3300 2200 Output Total 200 Balance 3300 2000 Result Diagrams: 12/27/19 04:57 12/27/19 04:57 Additional Labs: Accuchecks 12/27/19 12/27/19 12/27/19 19:29 16:21 11:53 POC Glucose 144 H 124 H 142 H 12/27/19 12/26/19 05:11 20:07 POC Glucose 132 H 133 H Hospitalist ROS - Review of Systems Constitutional: denies: fever, chills, sweats, weakness, malaise, other Respiratory: denies: cough, dry, shortness of breath, hemoptysis, SOB with excertion, pleuritic pain, sputum, wheezing, other Cardiovascular: denies: chest pain, palpitations, orthopnea, paroxysmal noc. dyspnea, edema, light headedness, other Gastrointestinal: reports: abdominal pain Genitourinary: denies: dysuria, frequency, hematuria - Medication Medications: Active Medications Generic Name Dose Route Start Last Admin Trade Name Freq PRN Reason Stop Dose Admin Famotidine 20 mg 12/26/19 09:00 12/27/19 20:04 Pepcid SLOW IVP 20 mg BID WHITNEY Administration Potassium Chloride/Dextrose/Sod Cl 1,000 mls @ 150 mls/hr 12/26/19 11:45 12/12 18:20 D5 0.9% Ns W/ 20 Meq Kcl IV 1,000 mls .Q6H40M WHITNEY Administration Morphine Sulfate 2 mg 12/27/19 16:15 12/27/19 20:05 Morphine SLOW IVP 2 mg Q2H PRN Administration Pain Nicotine 21 mg 12/27/19 09:00 12/27/19 08:09 Nicoderm Patch TD 21 mg DAILY WHITNEY Administration Ondansetron HCl 4 mg 12/26/19 06:45 12/27/19 10:06 Zofran IVP 4 mg Q6H PRN Administration Nausea/Vomiting - Exam General - other findings: moderate distress due to pain Eye: PERRL, anicteric sclera Heart: RRR, no murmur, no gallops, no rubs, normal peripheral pulses Respiratory: CTAB, no wheezes, no rales, no ronchi, normal chest expansion, no tachypnea, normal percussion Gastrointestinal: soft, non-distended, normal bowel sounds, tender to palpation Extremities: no edema Psychiatric: normal affect, normal behavior, A&O x 3 Hosp A/P - Plan #acute alcoholic pancreatitis -peak and trough pain, not improved -not tolerating clear liquids -requested urine toxicology on urine taken for urinalysis. positive for opioids however morphine in ER given 3 minutes prior to collecting urine; MEDICAL ATTENDANT checked, not suspicious for opioid abuse -Twan score low -added long acting morphine, continue IV for breakthrough pain -monitor development of alcohol withdrawal -attempt to advance to clear liquid #asymptomatic UTI -don't treat rest of management unchanged
[2019-12-28] MEDS: Morphine 2 MG/ML SYRINGE SLOW IVP PRN ×4 (01:14→16:40)
[2019-12-28] MEDS: Ondansetron PF 4 MG/2 ML Vial IVP PRN (01:16)
[2019-12-28] MEDS: D5 0.9% NS w/ 20 mEq KCl 1,000 ML IV SCH ×4 (01:22→22:30)
[2019-12-28 06:13] LABS: Anion Gap 9 mmol/L (10-20); BUN (Urea Nitrogen) Less than 4 mg/dL (7.0-18.7); Calc. Creatinine Clearance 122 mL/min (70-130); Carbon Dioxide 28 mmol/L (22-29); Chloride 102 mmol/L (98-107); Estimated GFR-MDRD Greater than 90; Glucose 118 mg/dL (70-105); Magnesium 1.3 mg/dL (1.6-2.6); Potassium 3.9 mmol/L (3.5-5.1); Sodium 135 mmol/L (136-145)
[2019-12-28] MEDS: Famotidine/PF 20 mg/2ml Vial SLOW IVP SCH ×2 (08:06→20:23)
[2019-12-28] MEDS: Nicotine 21 MG PATCH TD SCH (08:07)
[2019-12-28] MEDS ORDERED: Morphine ER 30 MG TAB PO SCH (09:00)
[2019-12-28] MEDS ORDERED: Lorazepam 2 MG/ML VIAL SLOW IVP PRN (10:16)
[2019-12-28] MEDS ORDERED: Magnesium 2 GM/50 ML 2 GM in Premix Bag 1 BAG IVPB SCH (10:30)
[2019-12-28] MEDS: Morphine ER 15 MG TAB PO SCH (20:23)
[2019-12-29] MEDS: Morphine 2 MG/ML SYRINGE SLOW IVP PRN ×2 (01:00→04:45)
[2019-12-29] MEDS: D5 0.9% NS w/ 20 mEq KCl 1,000 ML IV SCH ×2 (05:52→17:07)
[2019-12-29] MEDS: Nicotine 21 MG PATCH TD SCH (07:59)
[2019-12-29] MEDS: Famotidine/PF 20 mg/2ml Vial SLOW IVP SCH ×2 (08:00→20:33)
[2019-12-29] MEDS: Morphine ER 15 MG TAB PO SCH (08:00)
[2019-12-29] MEDS ORDERED: Magnesium Sulfate 4 GM in Sodium Chloride 0.9% 250 ML 250 ML IVPB SCH (11:30)
[2019-12-29] MEDS: Morphine 4 MG/ML VIAL SLOW IVP PRN ×3 (11:59→20:34)
[2019-12-29 12:23] LABS: ALT (SGPT) 10 U/L (8-55); AST (SGOT) 13 U/L (5-34); Albumin 2.9 g/dL (3.5-5.0); Alkaline Phosphatase 31 U/L (40-110); Anion Gap 10 mmol/L (10-20); BUN (Urea Nitrogen) Less than 4 mg/dL (7.0-18.7); Bilirubin, Total 0.4 mg/dL (0.2-1.2); CRP (Inflammatory) 2.33 mg/dL (= or < 0.5); Calc. Creatinine Clearance 122 mL/min (70-130); Calcium 8.4 mg/dL (7.8-10.44); Carbon Dioxide 24 mmol/L (22-29); Chloride 107 mmol/L (98-107); Estimated GFR-MDRD Greater than 90; Globulin 2.3 g/dL (2.4-3.5); Glucose 111 mg/dL (70-105); Potassium 3.9 mmol/L (3.5-5.1); Protein, Total 5.2 g/dL (6.0-8.3); Sodium 137 mmol/L (136-145)
--- NOTE | 2019-12-29 12:58 | ULT ---
RIGHT UPPER QUADRANT ULTRASOUND: DATE: 12/29/2019. PROVIDED CLINICAL HISTORY: Abdominal pain, nausea, and vomiting. FINDINGS: Comparison is made with the study dated 06/15/2019. The visualized pancreas and IVC appear normal wit h the exception of upper limits normal pancreatic ductal caliber, 2-3 mm. The gallbladder is moderat ana maria distended with sludge present. There is no wall thickening or pericholecystic fluid evident. Th e adoption agent documents a negative sonographic Carrera's sign. The common duct is not dilated. The liver demonstrates no mass or intrahepatic biliary ductal dilata tion. The right kidney demonstrates no hydronephrosis or mass. IMPRESSION: Gallbladder sludge without evidence for acute findings related to the gallbladder. POS: COLE
--- NOTE | 2019-12-29 13:43 | PDOC.HOSPP ---
- Subjective Encounter Date: 12/28/19 Encounter Time: 11:15 Subjective: pt up in bed still complains of pain to her epigastric area. she also has pain to her lower abdomen area - Objective Vital Signs & Weight: Vital Signs (12 hours) Temp Pulse Resp BP BP BP Pulse Ox 12/29/19 11:00 98.1 F 75 20 117/81 98 12/29/19 08:00 97.5 F L 82 16 123/88 99 12/29/19 07:00 123/88 12/29/19 05:11 98.1 F 89 18 138/84 100 12/29/19 03:42 138/84 Weight Admit Weight 130 lb 11.2 oz Weight 130 lb 11.2 oz I&O: 12/28/19 12/29/19 12/30/19 06:59 06:59 06:59 Intake Total 4200 4600 Output Total 200 Balance 4000 4600 Result Diagrams: 12/27/19 04:57 12/29/19 11:50 Additional Labs: Accuchecks 12/29/19 12/29/19 12/29/19 11:39 05:09 00:23 POC Glucose 124 H 108 153 H 12/28/19 16:16 POC Glucose 134 H Hospitalist ROS - Review of Systems Cardiovascular: denies: chest pain, palpitations, orthopnea, paroxysmal noc. dyspnea, edema, light headedness, other Gastrointestinal: reports: nausea, vomiting, abdominal pain Genitourinary: denies: dysuria, frequency, incontinence, hematuria, retention, other Musculoskeletal: denies: neck pain, shoulder pain, arm pain, back pain, hand pain, leg pain, foot pain, other - Medication Medications: Active Medications Generic Name Dose Route Start Last Admin Trade Name Freq PRN Reason Stop Dose Admin Famotidine 20 mg 12/26/19 09:00 12/29/19 08:00 Pepcid SLOW IVP 20 mg BID WHITNEY Administration Potassium Chloride/Dextrose/Sod Cl 1,000 mls @ 150 mls/hr 12/26/19 11:45 02/11 05:52 D5 0.9% Ns W/ 20 Meq Kcl IV 1,000 mls .Q6H40M WHITNEY Administration Morphine Sulfate 4 mg 12/29/19 11:31 12/29/19 11:59 Morphine SLOW IVP 4 mg Q4H PRN Administration Mild Pain (1-3) Nicotine 21 mg 12/27/19 09:00 12/29/19 07:59 Nicoderm Patch TD 21 mg DAILY WHITNEY Administration Ondansetron HCl 4 mg 12/26/19 06:45 12/28/19 01:16 Zofran IVP 4 mg Q6H PRN Administration Nausea/Vomiting - Exam Heart: negative: RRR, no murmur, no gallops, no rubs, normal peripheral pulses, irregular, diminshed peripheral pulses, murmur present, II/IV, III/IV Respiratory: negative: CTAB, no wheezes, no rales, no ronchi, normal chest expansion, no tachypnea, normal percussion, rales, rhonchi, tachypneic, wheezes Gastrointestinal: soft, normal bowel sounds Gastrointestinal - other findings: mild pain on palpation all over Extremities: negative: no cyanosis, no clubbing, no edema, 1+ LE edema, 2+ LE edema, clubbing Hosp A/P (1) Acute pancreatitis Code(s): K85.9 - ACUTE PANCREATITIS, UNSPECIFIED * DO NOT USE * Status: Acute (2) Hypoalbuminemia Code(s): E88.09 - OTH DISORDERS OF PLASMA-PROTEIN METABOLISM, NEC Status: Acute (3) Nausea & vomiting Code(s): R11.2 - NAUSEA WITH VOMITING, UNSPECIFIED Status: Acute - Plan will decrease her pain meds, she states that she will try to eat something. will monitor. will check labs in am.
--- NOTE | 2019-12-29 15:17 | PDOC.HOSPP ---
- Subjective Encounter Date: 12/29/19 Encounter Time: 11:45 Subjective: pt up in bed states she still has some pain but was able to tolerate cl diet. - Objective Vital Signs & Weight: Vital Signs (12 hours) Temp Pulse Resp BP BP BP Pulse Ox 12/29/19 12:00 117/81 12/29/19 11:00 98.1 F 75 20 117/81 98 12/29/19 08:00 97.5 F L 82 16 126/88 123/88 99 12/29/19 07:00 123/88 12/29/19 05:11 98.1 F 89 18 138/84 100 12/29/19 03:42 138/84 Weight Admit Weight 130 lb 11.2 oz Weight 130 lb 11.2 oz I&O: 12/28/19 12/29/19 12/30/19 06:59 06:59 06:59 Intake Total 4200 4600 220 Output Total 200 Balance 4000 4600 220 Result Diagrams: 12/27/19 04:57 12/29/19 11:50 Additional Labs: Accuchecks 12/29/19 12/29/19 12/29/19 11:39 05:09 00:23 POC Glucose 124 H 108 153 H 12/28/19 16:16 POC Glucose 134 H Hospitalist ROS - Review of Systems Cardiovascular: denies: chest pain, palpitations, orthopnea, paroxysmal noc. dyspnea, edema, light headedness, other Gastrointestinal: reports: nausea, abdominal pain Genitourinary: denies: dysuria, frequency, incontinence, hematuria, retention, other Musculoskeletal: denies: neck pain, shoulder pain, arm pain, back pain, hand pain, leg pain, foot pain, other - Medication Medications: Active Medications Generic Name Dose Route Start Last Admin Trade Name Freq PRN Reason Stop Dose Admin Famotidine 20 mg 12/26/19 09:00 12/29/19 08:00 Pepcid SLOW IVP 20 mg BID WHITNEY Administration Potassium Chloride/Dextrose/Sod Cl 1,000 mls @ 150 mls/hr 12/26/19 11:45 02/11 05:52 D5 0.9% Ns W/ 20 Meq Kcl IV 1,000 mls .Q6H40M WHITNEY Administration Morphine Sulfate 4 mg 12/29/19 11:31 12/29/19 11:59 Morphine SLOW IVP 4 mg Q4H PRN Administration Mild Pain (1-3) Nicotine 21 mg 12/27/19 09:00 12/29/19 07:59 Nicoderm Patch TD 21 mg DAILY WHITNEY Administration Ondansetron HCl 4 mg 12/26/19 06:45 12/28/19 01:16 Zofran IVP 4 mg Q6H PRN Administration Nausea/Vomiting - Exam Heart: negative: RRR, no murmur, no gallops, no rubs, normal peripheral pulses, irregular, diminshed peripheral pulses, murmur present, II/IV, III/IV Respiratory: negative: CTAB, no wheezes, no rales, no ronchi, normal chest expansion, no tachypnea, normal percussion, rales, rhonchi, tachypneic, wheezes Gastrointestinal: soft, normal bowel sounds Gastrointestinal - other findings: tender to touch all over abdomen Hosp A/P (1) Acute pancreatitis Code(s): K85.9 - ACUTE PANCREATITIS, UNSPECIFIED * DO NOT USE * Status: Acute (2) Hypoalbuminemia Code(s): E88.09 - OTH DISORDERS OF PLASMA-PROTEIN METABOLISM, NEC Status: Acute (3) Nausea & vomiting Code(s): R11.2 - NAUSEA WITH VOMITING, UNSPECIFIED Status: Acute - Plan will decrease her pain meds, she states that she will try to eat something. will monitor. will check labs in am. 4/5 pt's crp elevated, she states she feels a bit better will advance her diet. ruq ultrasound ordered. will change her meds to IV.
[2019-12-29] MEDS: Ondansetron PF 4 MG/2 ML Vial IVP PRN (16:28)
[2019-12-30] MEDS: D5 0.9% NS w/ 20 mEq KCl 1,000 ML IV SCH ×3 (00:24→17:32)
[2019-12-30] MEDS: Morphine 4 MG/ML VIAL SLOW IVP PRN ×5 (00:25→19:17)
[2019-12-30] MEDS: Nicotine 21 MG PATCH TD SCH (08:49)
[2019-12-30] MEDS: Famotidine/PF 20 mg/2ml Vial SLOW IVP SCH (08:49)
[2019-12-30] MEDS: Famotidine 20 MG TAB PO SCH (21:00)
[2019-12-31] MEDS: Morphine 4 MG/ML VIAL SLOW IVP PRN ×3 (00:25→09:58)
[2019-12-31] MEDS: D5 0.9% NS w/ 20 mEq KCl 1,000 ML IV SCH ×4 (01:11→21:37)
[2019-12-31] MEDS: Nicotine 21 MG PATCH TD SCH (08:23)
[2019-12-31] MEDS: Famotidine 20 MG TAB PO SCH ×2 (08:23→19:51)
--- NOTE | 2019-12-31 09:01 | PDOC.HOSPP ---
- Subjective Encounter Date: 12/30/19 Encounter Time: 11:45 Subjective: pt up in bed feels a bit better today. feels itchy to around her left breast area. - Objective Vital Signs & Weight: Vital Signs (12 hours) Temp Pulse Resp BP BP BP BP 12/31/19 07:50 98.0 F 69 18 124/89 12/31/19 03:55 98 F 72 18 126/81 12/31/19 03:39 126/81 12/31/19 00:30 98.2 F 72 18 134/88 134/88 Pulse Ox 12/31/19 07:50 100 12/31/19 03:55 95 12/31/19 03:39 12/31/19 00:30 100 Weight Admit Weight 130 lb 11.2 oz Weight 130 lb 11.2 oz I&O: 12/30/19 12/31/19 01/01/20 06:59 06:59 06:59 Intake Total 5790 2280 Balance 5790 2280 Result Diagrams: 12/27/19 04:57 12/31/19 09:38 Additional Labs: Accuchecks 12/31/19 12/30/19 12/30/19 05:53 20:36 16:43 POC Glucose 126 H 117 H 174 H 12/30/19 10:52 POC Glucose 97 Hospitalist ROS - Review of Systems Cardiovascular: denies: chest pain, palpitations, orthopnea, paroxysmal noc. dyspnea, edema, light headedness, other Gastrointestinal: denies: nausea, vomiting, abdominal pain, diarrhea, constipation, melena, hematochezia, other Genitourinary: denies: dysuria, frequency, incontinence, hematuria, retention, other - Medication Medications: Active Medications Generic Name Dose Route Start Last Admin Trade Name Freq PRN Reason Stop Dose Admin Famotidine 20 mg 12/30/19 21:00 12/31/19 08:23 Pepcid PO 20 mg BID WHITNEY Administration Potassium Chloride/Dextrose/Sod Cl 1,000 mls @ 150 mls/hr 12/26/19 11:45 04/13 08:23 D5 0.9% Ns W/ 20 Meq Kcl IV 1,000 mls .Q6H40M WHITNEY Administration Morphine Sulfate 4 mg 12/29/19 11:31 12/31/19 05:50 Morphine SLOW IVP 4 mg Q4H PRN Administration Mild Pain (1-3) Nicotine 21 mg 12/27/19 09:00 12/31/19 08:23 Nicoderm Patch TD 21 mg DAILY WHITNEY Administration Ondansetron HCl 4 mg 12/26/19 06:45 12/29/19 16:28 Zofran IVP 4 mg Q6H PRN Administration Nausea/Vomiting - Exam Heart: negative: RRR, no murmur, no gallops, no rubs, normal peripheral pulses, irregular, diminshed peripheral pulses, murmur present, II/IV, III/IV Respiratory: negative: CTAB, no wheezes, no rales, no ronchi, normal chest expansion, no tachypnea, normal percussion, rales, rhonchi, tachypneic, wheezes Gastrointestinal: soft, normal bowel sounds Gastrointestinal - other findings: mild pain on palpation all over Hosp A/P (1) Acute pancreatitis Code(s): K85.9 - ACUTE PANCREATITIS, UNSPECIFIED * DO NOT USE * Status: Acute (2) Hypoalbuminemia Code(s): E88.09 - OTH DISORDERS OF PLASMA-PROTEIN METABOLISM, NEC Status: Acute (3) Nausea & vomiting Code(s): R11.2 - NAUSEA WITH VOMITING, UNSPECIFIED Status: Acute - Plan will decrease her pain meds, she states that she will try to eat something. will monitor. will check labs in am. 4/5 pt's crp elevated, she states she feels a bit better will advance her diet. ruq ultrasound ordered. will change her meds to IV. 12/29 sludge noted in ultrasound, no elevated lfts. she is tolerating full liquid will advance to low fat. if she does well possible discharge in am. 47 she did try to eat a bit not much. pt encouraged to increase her oral intake. lfts stable. did not appreciate her rash per nursing she did have maculapapular rash under her armpits and under her left breast. Unlikely due to meds she is only on pepcid and morphine. will stop morphine.
[2019-12-31 10:24] LABS: ALT (SGPT) 13 U/L (8-55); AST (SGOT) 18 U/L (5-34); Albumin 3.2 g/dL (3.5-5.0); Alkaline Phosphatase 34 U/L (40-110); Anion Gap 11 mmol/L (10-20); BUN (Urea Nitrogen) 4 mg/dL (7.0-18.7); Bilirubin, Total 0.2 mg/dL (0.2-1.2); Calc. Creatinine Clearance 122 mL/min (70-130); Carbon Dioxide 26 mmol/L (22-29); Chloride 105 mmol/L (98-107); Estimated GFR-MDRD Greater than 90; Globulin 2.3 g/dL (2.4-3.5); Glucose 90 mg/dL (70-105); Potassium 4.3 mmol/L (3.5-5.1); Protein, Total 5.5 g/dL (6.0-8.3); Sodium 138 mmol/L (136-145)
[2019-12-31] MEDS ORDERED: diphenhydrAMINE 50 MG/ML VIAL IVP SCH (11:00)
[2019-12-31] MEDS: Acetaminophen/Codeine 30-300mg Tablet PO PRN ×2 (14:01→19:51)
[2019-12-31] MEDS: Ondansetron PF 4 MG/2 ML Vial IVP PRN (14:01)
[2020-01-01] MEDS: Acetaminophen/Codeine 30-300mg Tablet PO PRN ×2 (03:14→09:40)
[2020-01-01] MEDS: D5 0.9% NS w/ 20 mEq KCl 1,000 ML IV SCH (03:14)
[2020-01-01] MEDS: Famotidine 20 MG TAB PO SCH (08:03)
[2020-01-01] MEDS: Nicotine 21 MG PATCH TD SCH (08:04)
[2020-01-01 12:42] VITALS: TEMP 98.3
[2020-01-01 13:04] VITALS: BP 122/71
--- NOTE | 2020-01-01 13:51 | DIS ---
DATE OF ADMISSION: 12/26/2019 DATE OF DISCHARGE: 01/01/2020 DISCHARGE DIAGNOSES: As of the followin. Abdominal pain. 2. Pancreatitis. 3. Biliary sludge. 4. . 5. Nausea and vomiting. HOSPITAL COURSE: The patient is a 39-year-old female, who initially presented to the hospital with abdominal pain, nausea and vomiting. She had an elevated creatinine. She did undergo a CT of abdomen and pelvis, which indicated mild pancreatitis at the head of the pancreas. She also had an abdominal ultrasound and was noted to have gallbladder sludge without any evidence of acute finding. Her pancreatic duct was 2 to 3 mm and her gallbladder was moderately distended with sludge; however, there was no wall thickening and there was no pericholecystic fluid. Her LFTs were completely normal. Her hospital course was mildly complicated with some rash to her left lower breast area and little bit of the back with a maculopapular rash; however, nowhere else in the body did she have a rash. She was not on any antibiotics, the only thing she was on was pain medication and some Pepcid. The patient will be discharged home. She is able to eat. She will follow up with her primary. She has been asked to avoid from alcohol use. She did have a UA, which indicated some E coli; however, the colonies were only 25 to 50, she was asymptomatic, I did not treat that. PHYSICAL EXAMINATION: VITAL SIGNS: Temperature 98.3, pulse 85, respirations 18, oxygen saturation 100% on room air, and blood pressure 138/89. GENERAL: She is awake, alert and oriented x3, does not appear in distress. CV: S1 and S2 present. No murmurs, rubs or gallops. ABDOMEN: Bowel sounds are present x2. Mild pain upon palpation all around, but improved than before. She will follow up with her primary. Since she does not have one, I have given her referrals to [facility]. I have asked if her symptoms worsen, she needs to come in to the hospital. I have given her some Tylenol with Codeine, just about 10 tablets, and she is aware to take [id number] stool softeners for her to prevent any sort of constipation. She will again be discharged home. She will follow up with her primary. Also, I have told her to follow up with GI given her repeat pancreatitis. She possibly will require a cholecystectomy in the future. I have also told her to eat a low-fat diet. However, due to insurance purposes, she states it is very hard for her to get into a GI clinic. Job ID: [id number]
== END 2020-01-01 12:44 | disposition home or self-care (01) | DRG 440 ==
LOC: ERS 04:55 → T4-B 06:41
PROVIDERS: ADMIT Internal Medicine; ATTEND Internal Medicine
DX: K85.20 Alcohol induced acute pancreatitis without necrosis or infection (principal); F17.210 Nicotine dependence, cigarettes, uncomplicated; E86.0 Dehydration; E87.6 Hypokalemia; K82.9 Disease of gallbladder, unspecified; Z98.51 Tubal ligation status; Z88.5 Allergy status to narcotic agent; Z88.2 Allergy status to sulfonamides; Z88.8 Allergy status to other drugs, medicaments and biological substances; Z91.040 Latex allergy status; F10.20 Alcohol dependence, uncomplicated
CPT/HCPCS: 36415; 36416; 74177; 76705; 80048; 80053; 80306; 81003; 81015; 83605; 83690; 83735; 84703; 85025; 85027; 86140; 87040; 87077; 87086; 87186; 93005; 96361; 96374; 96375; 96376; J1200; J2270; J2405; J3411; J3475; J3480; J7050; Q9967; S0028

== ENCOUNTER 2021-10-09 15:15 | Inpatient (IN) | payer SELFPAY ==
[~2021-10-09 15:15] MED LIST: Iopamidol-370 76% 500 ML 1 ML ONE
[2021-10-09 16:06] LABS: #Eosinphils 0.1 thou/uL (0.0-0.7); #Lymphocytes 0.9 thou/uL (1.20-3.40); #Monocytes 0.7 thou/uL (0.11-0.59); #Neutrophils 8.6 thou/uL (1.40-6.50); %Basophils 0.1 % (0.0-1.0); %Eosinophils 1.1 % (0.0-10.0); %Lymphocytes 8.5 % (21.0-51.0); %Monocytes 6.9 % (0.0-10.0); %Neutrophils 83.4 % (42.0-75.0); Hemoglobin 15.2 g/dL (12.0-16.0); Mean Corpuscular HGB CONC 33.4 g/dL (32.0-36.0); Mean Platelet Volume 9.3 fL (7.4-10.4); Platelet Count 136 thou/uL (130-400); RBC Distribution Width 13.3 % (11.5-14.5); Red Blood Cell (RBC) Count 4.46 mill/uL (4.20-5.40); White Blood Cell (WBC) Count 10.3 thou/uL (4.8-10.8)
[2021-10-09 16:29] LABS: ALT (SGPT) 48 U/L (8-55); AST (SGOT) 74 U/L (5-34); Albumin 4.1 g/dL (3.5-5.0); Alkaline Phosphatase 59 U/L (40-110); Anion Gap 23 mmol/L (10-20); BUN (Urea Nitrogen) 17 mg/dL (7.0-18.7); Bilirubin, Total 1.4 mg/dL (0.2-1.2); Calc. Creatinine Clearance 0 mL/min (70-130); Calcium 9.2 mg/dL (7.8-10.44); Carbon Dioxide 19 mmol/L (22-29); Chloride 98 mmol/L (98-107); Globulin 3.2 g/dL (2.4-3.5); Glucose 98 mg/dL (70-105); Lipase 298 U/L (8-78); Potassium 3.7 mmol/L (3.5-5.1); Protein, Total 7.3 g/dL (6.0-8.3); Sodium 136 mmol/L (136-145)
[2021-10-09] MEDS ORDERED: Ondansetron PF 4 MG/2 ML Vial ONE (18:06)
[2021-10-09] MEDS ORDERED: Morphine 4 MG/ML VIAL ONE ×3 (18:06→19:47)
[2021-10-09 20:20] LABS: Bilirubin Negative (Negative); Blood, Urine Negative (Negative); Clarity Clear (Clear); Glucose, Urine (Dipstick) Normal (Negative); Ketone, Urine Greater than 150 mg/dL (Negative); Leukocyte Negative Leu/uL (Negative); Nitrite Negative (Negative); Protein, Urine (Dipstick) 20 mg/dL (Neg-Trace); Urobilinogen Normal mg/dL (Less than 2)
[2021-10-09 20:21] LABS: Specific Gravity, Urine Greater than 1.065 (1.002-1.036)
[2021-10-09] MEDS ORDERED: Ondansetron ODT 4 MG TAB PO PRN (20:40)
[2021-10-09] MEDS ORDERED: Acetaminophen 650 MG Suppository PR PRN (20:40)
[2021-10-09 22:38] VITALS: BMI 33.3
[2021-10-09] MEDS: Ondansetron PF 4 MG/2 ML Vial IVP PRN (23:13)
[2021-10-09] MEDS: Morphine 4 MG/ML VIAL SLOW IVP PRN (23:17)
[2021-10-10] MEDS: Morphine 4 MG/ML VIAL SLOW IVP PRN ×7 (02:52→23:37)
[2021-10-10] MEDS: Sodium Chloride 0.9% 1,000 ML IV SCH ×3 (02:52→08:14)
[2021-10-10] MEDS ORDERED: Ondansetron PF 4 MG/2 ML Vial IVP SCH (04:30)
[2021-10-10] MEDS: Enoxaparin Sodium 40 MG/0.4 ML SYRINGE SC SCH (08:12)
[2021-10-10] MEDS ORDERED: FLU VACC QS2021-22(6MOS UP)/PF 60 MCG/0.5 ML SYRINGE IM ONE (09:00)
[2021-10-10 10:25] LABS: #Eosinphils 0.1 thou/uL (0.0-0.7); #Lymphocytes 1.3 thou/uL (1.20-3.40); #Monocytes 1.2 thou/uL (0.11-0.59); #Neutrophils 9.4 thou/uL (1.40-6.50); %Basophils 0.2 % (0.0-1.0); %Eosinophils 0.9 % (0.0-10.0); %Lymphocytes 10.9 % (21.0-51.0); %Monocytes 9.9 % (0.0-10.0); %Neutrophils 78.1 % (42.0-75.0); Hemoglobin 13.7 g/dL (12.0-16.0); Mean Corpuscular HGB CONC 32.9 g/dL (32.0-36.0); Mean Corpuscular Hemoglobin 33.9 pg (27.0-31.0); Mean Platelet Volume 9.3 fL (7.4-10.4); Platelet Count 112 thou/uL (130-400); RBC Distribution Width 13.4 % (11.5-14.5); Red Blood Cell (RBC) Count 4.04 mill/uL (4.20-5.40)
[2021-10-10] MEDS ORDERED: Lactated Ringer's 1,000 ML IV SCH (10:30)
[2021-10-10] MEDS: Ondansetron PF 4 MG/2 ML Vial IVP PRN ×2 (10:41→17:03)
[2021-10-10 10:42] LABS: Anion Gap 18 mmol/L (10-20); BUN (Urea Nitrogen) 6 mg/dL (7.0-18.7); Calc. Creatinine Clearance 139 mL/min (70-130); Calcium 8.1 mg/dL (7.8-10.44); Carbon Dioxide 15 mmol/L (22-29); Cardiac Risk 1.9 (Less than 4.5); Chloride 106 mmol/L (98-107); Cholesterol 138 mg/dl (< 200 Desired); Glucose 90 mg/dL (70-105); HDL Cholesterol 71 mg/dL (>60 Neg Risk); LDL Cholesterol, Calculated 47 mg/dL; Magnesium 1.4 mg/dL (1.6-2.6); Phosphorus 2.5 mg/dL (2.3-4.7); Potassium 3.8 mmol/L (3.5-5.1); Sodium 135 mmol/L (136-145); Triglycerides 98 mg/dL (Less than 150)
[2021-10-10] MEDS: Lactated Ringer's 1,000 ML IV SCH ×4 (13:08→20:25)
[2021-10-10] MEDS ORDERED: Lidocaine 2% Viscous Solution 10 ML, Aluminum & Magnesium Hydroxide 30 ML SSW SCH (13:15)
[2021-10-10] MEDS ORDERED: Electrolyte Replacement Protocol 1 EACH FS SCH (13:15)
[2021-10-10] MEDS ORDERED: Magnesium Sulfate 4 GM in Sodium Chloride 0.9% 250 ML 250 ML IVPB SCH (13:45)
[2021-10-10] MEDS ORDERED: Pantoprazole 40 MG VIAL IVP SCH (14:00)
[2021-10-10] MEDS: HYDROcodone/Acetaminophen 10/325 mg Tablet PO PRN (15:31)
[2021-10-11] MEDS: Lactated Ringer's 1,000 ML IV SCH ×5 (00:35→21:50)
[2021-10-11 00:38] LABS: SARS-CoV-2 PCR by NAA Not Detected (NotDetected)
[2021-10-11] MEDS: HYDROcodone/Acetaminophen 10/325 mg Tablet PO PRN ×4 (00:44→23:18)
[2021-10-11] MEDS: Morphine 4 MG/ML VIAL SLOW IVP PRN ×6 (03:57→21:15)
[2021-10-11] MEDS: Ondansetron PF 4 MG/2 ML Vial IVP PRN ×2 (08:07→19:29)
[2021-10-11] MEDS: Pantoprazole 40 MG VIAL IVP SCH (08:14)
[2021-10-11 08:15] LABS: Anion Gap 15 mmol/L (10-20); BUN (Urea Nitrogen) Less than 4 mg/dL (7.0-18.7); Calc. Creatinine Clearance 158 mL/min (70-130); Calcium 8.5 mg/dL (7.8-10.44); Carbon Dioxide 19 mmol/L (22-29); Chloride 101 mmol/L (98-107); Glucose 89 mg/dL (70-105); Lipase 390 U/L (8-78); Potassium 3.6 mmol/L (3.5-5.1); Sodium 131 mmol/L (136-145)
[2021-10-11] MEDS: Enoxaparin Sodium 40 MG/0.4 ML SYRINGE SC SCH (09:00)
[2021-10-11] MEDS: Ketorolac Tromethamine 30 MG/ML VIAL IVP PRN ×2 (09:22→19:29)
[2021-10-11] MEDS: Acetaminophen 500 MG TAB PO SCH ×2 (19:16→23:19)
[2021-10-12] MEDS: Morphine 4 MG/ML VIAL SLOW IVP PRN ×8 (00:26→22:15)
[2021-10-12] MEDS: Ondansetron PF 4 MG/2 ML Vial IVP PRN ×2 (03:14→23:15)
[2021-10-12] MEDS: Ketorolac Tromethamine 30 MG/ML VIAL IVP PRN ×2 (03:14→09:47)
[2021-10-12] MEDS: Lactated Ringer's 1,000 ML IV SCH ×4 (03:18→18:26)
[2021-10-12] MEDS: HYDROcodone/Acetaminophen 10/325 mg Tablet PO PRN ×5 (03:52→23:14)
[2021-10-12 08:14] LABS: #Lymphocytes 0.9 thou/uL (1.20-3.40); #Monocytes 0.8 thou/uL (0.11-0.59); #Neutrophils 4.5 thou/uL (1.40-6.50); %Basophils 0.1 % (0.0-1.0); %Eosinophils 0.7 % (0.0-10.0); %Lymphocytes 14.9 % (21.0-51.0); %Monocytes 12.4 % (0.0-10.0); %Neutrophils 71.9 % (42.0-75.0); Hemoglobin 12.9 g/dL (12.0-16.0); Mean Corpuscular HGB CONC 32.1 g/dL (32.0-36.0); Mean Corpuscular Hemoglobin 33.2 pg (27.0-31.0); Mean Platelet Volume 9.7 fL (7.4-10.4); Platelet Count 89 thou/uL (130-400); RBC Distribution Width 13.5 % (11.5-14.5); White Blood Cell (WBC) Count 6.3 thou/uL (4.8-10.8)
[2021-10-12 08:15] LABS: ALT (SGPT) 22 U/L (8-55); AST (SGOT) 21 U/L (5-34); Albumin 3.2 g/dL (3.5-5.0); Alkaline Phosphatase 42 U/L (40-110); Anion Gap 16 mmol/L (10-20); BUN (Urea Nitrogen) Less than 4 mg/dL (7.0-18.7); Bilirubin, Total 0.6 mg/dL (0.2-1.2); Calc. Creatinine Clearance 163 mL/min (70-130); Carbon Dioxide 23 mmol/L (22-29); Chloride 100 mmol/L (98-107); Globulin 2.7 g/dL (2.4-3.5); Glucose 77 mg/dL (70-105); Potassium 3.3 mmol/L (3.5-5.1); Protein, Total 5.9 g/dL (6.0-8.3); Sodium 136 mmol/L (136-145)
[2021-10-12] MEDS ORDERED: Magnesium 2 GM/50 ML 2 GM in Premix Bag 1 BAG IVPB SCH (08:30)
[2021-10-12] MEDS ORDERED: Potassium Chloride 20 MEQ TAB PO SCH (08:30)
[2021-10-12] MEDS: Enoxaparin Sodium 40 MG/0.4 ML SYRINGE SC SCH (08:46)
[2021-10-12] MEDS: Pantoprazole 40 MG VIAL IVP SCH (08:46)
[2021-10-12] MEDS: Acetaminophen 500 MG TAB PO SCH ×2 (08:52→15:54)
[2021-10-13] MEDS: Acetaminophen 500 MG TAB PO SCH ×3 (00:44→16:50)
[2021-10-13] MEDS: Acetaminophen 325 MG TAB PO PRN (00:45)
[2021-10-13] MEDS: Morphine 4 MG/ML VIAL SLOW IVP PRN ×6 (01:15→20:51)
[2021-10-13] MEDS: Lactated Ringer's 1,000 ML IV SCH ×2 (03:10→14:12)
[2021-10-13] MEDS: HYDROcodone/Acetaminophen 10/325 mg Tablet PO PRN ×5 (03:11→23:00)
[2021-10-13 08:20] LABS: Anion Gap 13 mmol/L (10-20); BUN (Urea Nitrogen) Less than 4 mg/dL (7.0-18.7); Calc. Creatinine Clearance 160 mL/min (70-130); Calcium 8.7 mg/dL (7.8-10.44); Carbon Dioxide 28 mmol/L (22-29); Chloride 99 mmol/L (98-107); Glucose 98 mg/dL (70-105); Potassium 3.5 mmol/L (3.5-5.1); Sodium 136 mmol/L (136-145)
[2021-10-13] MEDS: Enoxaparin Sodium 40 MG/0.4 ML SYRINGE SC SCH (09:02)
[2021-10-13] MEDS: Pantoprazole 40 MG VIAL IVP SCH (09:03)
[2021-10-13] MEDS ORDERED: Potassium Chloride 20 MEQ TAB PO SCH (09:15)
[2021-10-13] MEDS: Ondansetron PF 4 MG/2 ML Vial IVP PRN (18:00)
[2021-10-14] MEDS: Morphine 4 MG/ML VIAL SLOW IVP PRN ×7 (00:18→23:11)
[2021-10-14] MEDS: Acetaminophen 500 MG TAB PO SCH ×4 (00:19→23:10)
[2021-10-14] MEDS: Lactated Ringer's 1,000 ML IV SCH ×3 (00:19→20:51)
[2021-10-14] MEDS: HYDROcodone/Acetaminophen 10/325 mg Tablet PO PRN ×3 (05:15→20:50)
[2021-10-14 06:05] LABS: Hemoglobin 13.4 g/dL (12.0-16.0); Mean Corpuscular HGB CONC 33.5 g/dL (32.0-36.0); Mean Corpuscular Hemoglobin 33.8 pg (27.0-31.0); Mean Platelet Volume 8.6 fL (7.4-10.4); Platelet Count 118 thou/uL (130-400); RBC Distribution Width 13.4 % (11.5-14.5); Red Blood Cell (RBC) Count 3.98 mill/uL (4.20-5.40)
[2021-10-14 06:15] LABS: ALT (SGPT) 18 U/L (8-55); AST (SGOT) 19 U/L (5-34); Albumin 3.3 g/dL (3.5-5.0); Alkaline Phosphatase 44 U/L (40-110); Anion Gap 16 mmol/L (10-20); BUN (Urea Nitrogen) 4 mg/dL (7.0-18.7); Bilirubin, Total 0.6 mg/dL (0.2-1.2); Calc. Creatinine Clearance 155 mL/min (70-130); Calcium 9.1 mg/dL (7.8-10.44); Carbon Dioxide 23 mmol/L (22-29); Chloride 100 mmol/L (98-107); Globulin 2.9 g/dL (2.4-3.5); Glucose 99 mg/dL (70-105); Lipase 44 U/L (8-78); Potassium 3.4 mmol/L (3.5-5.1); Protein, Total 6.2 g/dL (6.0-8.3); Sodium 136 mmol/L (136-145)
[2021-10-14] MEDS ORDERED: Potassium Chloride 20 MEQ TAB PO SCH (08:00)
[2021-10-14] MEDS: Pantoprazole 40 MG VIAL IVP SCH (08:10)
[2021-10-14] MEDS: Enoxaparin Sodium 40 MG/0.4 ML SYRINGE SC SCH (08:11)
[2021-10-14 10:33] LABS: Band 15 % (5-11); Eosinophils 4 % (0-10); Lymphocytes 35 % (21-51); MDiff Complete? YES; Monocytes 7 % (0-10); Neutrophil 29 % (42-75); Platelet Morphology Comment Appears Decreased; Polychromasia SLIGHT = 2-3 cells (100X) (0-2/hpf); Reactive Lymphocytes 10 % (0-10)
[2021-10-14] MEDS: Ondansetron PF 4 MG/2 ML Vial IVP PRN (14:26)
[2021-10-14] MEDS ORDERED: Iopamidol 370 76% 100 ML VIAL ONE (16:30)
[2021-10-15] MEDS: HYDROcodone/Acetaminophen 10/325 mg Tablet PO PRN ×3 (01:04→09:13)
[2021-10-15] MEDS: Morphine 4 MG/ML VIAL SLOW IVP PRN ×3 (03:03→22:30)
[2021-10-15] MEDS: Lactated Ringer's 1,000 ML IV SCH ×2 (05:16→13:04)
[2021-10-15] MEDS: Acetaminophen 500 MG TAB PO SCH ×3 (09:13→23:42)
[2021-10-15] MEDS: Enoxaparin Sodium 40 MG/0.4 ML SYRINGE SC SCH (09:14)
[2021-10-15] MEDS: Pantoprazole 40 MG VIAL IVP SCH (09:14)
[2021-10-15] MEDS ORDERED: Polyethylene Glycol 3350 17 GM Packet PO SCH (09:30)
[2021-10-15 10:10] LABS: Anion Gap 15 mmol/L (10-20); BUN (Urea Nitrogen) Less than 4 mg/dL (7.0-18.7); Calc. Creatinine Clearance 150 mL/min (70-130); Carbon Dioxide 26 mmol/L (22-29); Chloride 100 mmol/L (98-107); Glucose 90 mg/dL (70-105); Lipase 45 U/L (8-78); Potassium 3.5 mmol/L (3.5-5.1); Sodium 137 mmol/L (136-145)
[2021-10-15 10:26] LABS: Hemoglobin 12.7 g/dL (12.0-16.0); Mean Corpuscular HGB CONC 32.8 g/dL (32.0-36.0); Mean Corpuscular Hemoglobin 33.4 pg (27.0-31.0); Mean Platelet Volume 8.8 fL (7.4-10.4); Platelet Count 131 thou/uL (130-400); RBC Distribution Width 13.4 % (11.5-14.5); Red Blood Cell (RBC) Count 3.81 mill/uL (4.20-5.40); White Blood Cell (WBC) Count 5.9 thou/uL (4.8-10.8)
[2021-10-15] MEDS: traMADol HCl 50 MG TAB PO PRN ×3 (11:20→23:47)
[2021-10-15 12:01] LABS: Amphetamine Not Detected (NotDetected); Barbiturates Screen Not Detected (NotDetected); Benzodiazepine Screen Not Detected (NotDetected); Cocaine Metabolite Screen Not Detected (NotDetected); Methadone Not Detected (NotDetected); Methamphetamine Not Detected (NotDetected); Opiate Screen Detected (NotDetected); Oxycodone Screen Not Detected (NotDetected); Phencyclidine (PCP) Not Detected (NotDetected); THC/Cannabinoid Screen Detected (NotDetected); Tricyclic Screen Not Detected (NotDetected)
[2021-10-15] MEDS ORDERED: Potassium Chloride 20 MEQ TAB PO SCH (12:45)
[2021-10-15 12:59] LABS: Band 11 % (5-11); Eosinophils 3 % (0-10); Lymphocytes 23 % (21-51); MDiff Complete? YES; Monocytes 3 % (0-10); Neutrophil 42 % (42-75); Platelet Morphology Comment Appears Adequate; RBC Morphology Normal; Reactive Lymphocytes 18 % (0-10)
[2021-10-15] MEDS: Acetaminophen 325 MG TAB PO PRN (14:27)
[2021-10-16] MEDS ORDERED: diphenhydrAMINE 25 MG CAP PO PRN (02:36)
[2021-10-16] MEDS: Lactated Ringer's 1,000 ML IV SCH ×3 (02:52→22:32)
[2021-10-16] MEDS: Morphine 4 MG/ML VIAL SLOW IVP PRN (05:46)
[2021-10-16] MEDS: Acetaminophen 325 MG TAB PO PRN (09:16)
[2021-10-16] MEDS: Enoxaparin Sodium 40 MG/0.4 ML SYRINGE SC SCH (09:19)
[2021-10-16] MEDS: Pantoprazole 40 MG VIAL IVP SCH (09:23)
[2021-10-16] MEDS ORDERED: Ketorolac Tromethamine 30 MG/ML VIAL IVP PRN (11:22)
[2021-10-16] MEDS: HYDROcodone/Acetaminophen 5/325 mg Tablet PO PRN ×3 (13:20→22:32)
[2021-10-16 14:53] LABS: Anion Gap 12 mmol/L (10-20); BUN (Urea Nitrogen) 4 mg/dL (7.0-18.7); Calc. Creatinine Clearance 153 mL/min (70-130); Calcium 8.9 mg/dL (7.8-10.44); Carbon Dioxide 25 mmol/L (22-29); Chloride 102 mmol/L (98-107); Glucose 125 mg/dL (70-105); Sodium 135 mmol/L (136-145)
[2021-10-16] MEDS: Acetaminophen 500 MG TAB PO SCH ×2 (18:30→19:05)
[2021-10-17] MEDS: Acetaminophen 500 MG TAB PO SCH ×4 (00:10→23:03)
[2021-10-17] MEDS: HYDROcodone/Acetaminophen 5/325 mg Tablet PO PRN ×6 (02:19→23:02)
[2021-10-17] MEDS ORDERED: diphenhydrAMINE 25 MG CAP PO SCH (04:45)
[2021-10-17] MEDS: Enoxaparin Sodium 40 MG/0.4 ML SYRINGE SC SCH (08:20)
[2021-10-17] MEDS: Pantoprazole 40 MG VIAL IVP SCH (08:20)
[2021-10-17] MEDS: Lactated Ringer's 1,000 ML IV SCH ×3 (08:20→20:26)
[2021-10-17 08:30] LABS: Anion Gap 15 mmol/L (10-20); BUN (Urea Nitrogen) 4 mg/dL (7.0-18.7); Calc. Creatinine Clearance 153 mL/min (70-130); Carbon Dioxide 25 mmol/L (22-29); Chloride 101 mmol/L (98-107); Glucose 100 mg/dL (70-105); Potassium 3.7 mmol/L (3.5-5.1); Sodium 137 mmol/L (136-145)
[2021-10-17] MEDS: Amlodipine 5 MG TAB PO SCH (09:59)
[2021-10-17 16:33] LABS: SARS-CoV-2 PCR by NAA Not Detected (NotDetected)
[2021-10-18] MEDS: HYDROcodone/Acetaminophen 5/325 mg Tablet PO PRN ×5 (02:51→23:56)
[2021-10-18 03:25] LABS: #Eosinphils 0.1 thou/uL (0.0-0.7); #Lymphocytes 2.6 thou/uL (1.20-3.40); #Monocytes 1.1 thou/uL (0.11-0.59); #Neutrophils 3.5 thou/uL (1.40-6.50); %Basophils 0.6 % (0.0-1.0); %Eosinophils 1.4 % (0.0-10.0); %Lymphocytes 35.9 % (21.0-51.0); %Monocytes 14.7 % (0.0-10.0); %Neutrophils 47.4 % (42.0-75.0); Hemoglobin 12.9 g/dL (12.0-16.0); Mean Corpuscular HGB CONC 33.5 g/dL (32.0-36.0); Mean Corpuscular Hemoglobin 33.7 pg (27.0-31.0); Mean Platelet Volume 8.5 fL (7.4-10.4); Platelet Count 224 thou/uL (130-400); RBC Distribution Width 13.6 % (11.5-14.5); Red Blood Cell (RBC) Count 3.82 mill/uL (4.20-5.40); White Blood Cell (WBC) Count 7.3 thou/uL (4.8-10.8)
[2021-10-18] MEDS: Pantoprazole 40 MG VIAL IVP SCH (08:36)
[2021-10-18] MEDS: Acetaminophen 500 MG TAB PO SCH ×3 (08:36→23:56)
[2021-10-18] MEDS: Enoxaparin Sodium 40 MG/0.4 ML SYRINGE SC SCH (08:37)
[2021-10-18] MEDS: Amlodipine 5 MG TAB PO SCH (08:37)
[2021-10-18] MEDS: Lactated Ringer's 1,000 ML IV SCH (08:37)
[2021-10-19] MEDS: HYDROcodone/Acetaminophen 5/325 mg Tablet PO PRN ×3 (04:49→13:45)
[2021-10-19] MEDS: Acetaminophen 500 MG TAB PO SCH ×2 (08:39→15:10)
[2021-10-19] MEDS: Enoxaparin Sodium 40 MG/0.4 ML SYRINGE SC SCH (08:40)
[2021-10-19] MEDS: Amlodipine 5 MG TAB PO SCH (08:40)
[2021-10-19 09:27] VITALS: BP 96/67; TEMP 98.1
== END 2021-10-19 16:01 | disposition home or self-care (01) | DRG 440 ==
LOC: ERS 15:15 → T4-A 20:21
PROVIDERS: ADMIT Student in an Organized Health Care Education/Training Program; ATTEND Internal Medicine
DX: K85.20 Alcohol induced acute pancreatitis without necrosis or infection (principal); K70.0 Alcoholic fatty liver; D75.89 Other specified diseases of blood and blood-forming organs; E87.6 Hypokalemia; F10.10 Alcohol abuse, uncomplicated; K86.0 Alcohol-induced chronic pancreatitis; R73.03 Prediabetes; Z20.822 Contact with and (suspected) exposure to COVID-19; Z88.0 Allergy status to penicillin; Z91.040 Latex allergy status; Z88.8 Allergy status to other drugs, medicaments and biological substances; Z98.51 Tubal ligation status
CPT/HCPCS: 36415; 74019; 74177; 76705; 80048; 80053; 80061; 80306; 81003; 82607; 82746; 83690; 83735; 84100; 85025; 96374; 96375; 96376; C9113; J1650; J1885; J2270; J2405; J3475; J7050; J7120; Q9967; U0003; U0005

== ENCOUNTER 2025-08-19 09:20 | Outpatient (CLI) | payer OTHER | END 2025-08-19 09:21 | disposition home or self-care (01) | LOC: SCSBT 09:20 | PROVIDERS: ATTEND Family Medicine | DX: Z13.820 Encounter for screening for osteoporosis (principal) | CPT/HCPCS: 77080 ==